=== PATIENT | female | born 1960 | race Caucasian/White ===

== ENCOUNTER → 2019-03-13 16:51 | Outpatient (CLI) | payer BC, SELFPAY ==
--- NOTE | 2019-03-13 16:59 | MM_ITS ---
PROCEDURE: MM DIG SCREENING MAMM BI W/CAD CLINICAL INDICATION: SCREENING There is a history of breast cancer in patient's sister diagnosed after menopause. COMPARISON: MAMMO ADDITIONAL VIEWS RT from 12/02/2015 MAMMO DIAG DIGITAL RT UNILAT from 06/15/2016 Screening-Bilateral Mammography from 12/03/2017 , outside film from [place], [place] TECHNIQUE: Standard CC and MLO images were obtained. R2 CAD reviewed. FINDINGS: There is no suspicious lesion and no suspicious microcalcifications. Moderate fibroglandular densities are seen in the central portions and subareolar regions of both breasts. The findings of a lateral and symmetrical. There is benign-appearing calcification left breast. There is a stable asymmetric density deep within the right breast likely focal glandular elements. It is similar asymmetric density nearly axillary tail left breast which is stable and likely focal glandular tissue. IMPRESSION: Moderate breast density with no suspicious lesions seen BI-RAD Category: 2 Benign Finding(s) FOLLOW-UP: 1YR 1 Year Follow-up (A letter has been sent to the patient regarding results of the study.) Dictated by: Dr. Reggie Falk MD 03/22/2019 16:[address] Reggie Falk MD in [place] 03/22/2019 16:09
== END ==
PROVIDERS: Visit Provider Emergency Medicine
DX: Z12.31 Encounter for screening mammogram for malignant neoplasm of breast (principal)
CPT/HCPCS: 77067

== ENCOUNTER → 2019-11-19 10:53 | Outpatient (CLI) | payer BC, SELFPAY ==
[2019-11-19 10:56] LABS: Adenovirus,PCR Not Detected (NotDetected); Bordetella Pertussis Not Detected (NotDetected); Chlamydophila Pneumoniae, PCR Not Detected (NotDetected); Coronavirus 19, PCR Not Detected (NotDetected); Coronavirus 229E Not Detected (NotDetected); Coronavirus NL63 Not Detected (NotDetected); Coronavirus OC43 Not Detected (NotDetected); Coronovirus HKU1,PCR Not Detected (NotDetected); Human Metapneumovirus Not Detected (NotDetected); Influenza A, PCR Not Detected (NotDetected); Influenza AH1, 2009 Not Detected (NotDetected); Influenza AH1, PCR Not Detected (NotDetected); Influenza AH3,PCR Not Detected (NotDetected); Influenza B, PCR Not Detected (NotDetected); Mycoplasma Pneumoniae, PCR Not Detected (NotDected); Parainfluenza 1, PCR Not Detected (NotDetected); Parainfluenza 2, PCR Not Detected (NotDetected); Parainfluenza 3, PCR Not Detected (NotDetected); Parainfluenza 4, PCR Not Detected (NotDetected); Respiratory Syncytial Virus Not Detected (NotDetected); Rhinovirus/Enterovirus Not Detected (NotDetected)
--- NOTE | 2019-11-19 16:25 | PC.NURSE ---
notified pt of negative COVID 19 results.
== END ==
PROVIDERS: Visit Provider Internal Medicine Gastroenterology
DX: Z01.818 Encounter for other preprocedural examination (principal)
CPT/HCPCS: 87581; 87633; 87798

== ENCOUNTER 2019-11-21 08:24 | Day surgery (SDC) | payer BC, SELFPAY ==
--- NOTE | 2019-11-18 11:08 | SUR.PREOP ---
11/18/19 @ 1725--PHONE CALL MADE TO PATIENT. PATIENT UNDERSTANDS THAT LAB WORK AND COVID TESTING NEEDS TO BE COMPLETED @ 1100 ON 11/19/19. PATIENT UNDERSTANDS IF LAB WORK AND COVID-19 TESTS ARE NOT COMPLETED BY 12PM ON THAT DATE, THE SURGERY SCHEDULED WILL BE CANCELLED AND RESCHEDULED FOR ANOTHER TIME.
[2019-11-18 12:38] VITALS: BMI 30.2
[2019-11-21] VITALS (8 sets, daily range): BP systolic 95–142; BP diastolic 67–104; PULSE 64–95; RESP 18; TEMP 36.2–36.7; O2SAT 92–98
--- NOTE | 2019-11-21 09:56 | HMH.ANESCL ---
[facility] Anesthesia Checklist - Structural Data Admitted From: Home Planned Operative Procedure/s: egd/colonoscopy Consent for Planned Operative Procedure(s) Verified: Yes - Airway Assessment C-Spine Mobility Assessed: Yes TMJ Mobility Assessed: Yes Dentition: Good Dentition - Neurological Assessment Level of Consciousness: Awake, Alert, Appropriate - Anesthesia Plan Anesthesia Risk discussed: Yes Anesthesia Plan: Verified ASA Class: II Anesthesia Type: MAC [facility] History I have reviewed the patient's past medical history: Yes Medical History: Reports:: Cancer (skin cancer) Denies:: Diabetes Mellitus Type 1, Diabetes Mellitus Type 2, Internal Pacemaker, MRSA, Seizures *Have you ever received a pneumonia vaccine?: No *Have you received a flu vaccine this season?: Yes Anesthesia experience/problems:: none Other Surgeries: No: Pacemaker Amputation: No Fractures: No - *Social History Educational Level: Attended College Smoking Status: Never smoker Alcohol Intake: current Alcohol Intake Frequency:: holidays/special occasions only Substance Use Type: denies use *Occupational Status:: employed Housing: apartment Household Members: none *Travel in the last 8 weeks: None Family Hx:: Cancer, Diabetes
--- NOTE | 2019-11-21 10:24 | HMH.PROC ---
[facility] Procedure Note Procedure Note:: Upper Endoscopy Procedure Report: Esophagogastroduodenoscopy with cold biopsies Endoscopost: Bryan Sloan II, MD Referring Physician: Hiro Carballo MD Date of Procedure: November 21, 2019 Equipment: Olympus GIF 180 standard upper endoscope Sedation: MAC sedation Indications: Mrs. Briones is a 59-year-old female with epigastric abdominal pain that has worsened over the last month. She has moderate nausea, bloating and early satiety. She also has had looser bowel movements with some urgency. Over the last couple of weeks she has noted some bright red blood per rectum with some blood clots. She reports loose stools that are occasionally watery. She has some pyrosis. She reports no dysphagia or globus sensation. She reports no melena or weight loss. This is her first upper endoscopy. She does have a niece and nephew with Crohn's disease. Procedure: Prior to the procedure, a history and physical exam was performed, and patient's medications and allergies were reviewed. The risks, benefits and alternatives of the sedation and procedure were discussed with the patient. All questions were answered and informed consent was obtained. The patient was brought to the procedure room. Patient identification and proposed procedure were verified by the physician and the nurse. The patient was placed in a left lateral decubitus position and the scope was passed under direct vision. Throughout the procedure, the patient's blood pressure, pulse, and oxygen saturations were monitored continuously. The upper GI endoscopy was accomplished without difficulty. The patient tolerated the procedure well. Findings: The scope was passed directly into the upper esophagus and advanced to the third portion of the duodenum. The post bulbar duodenum and duodenal bulb were normal with normal mucosa and conniventes. Cold biopsies were taken from the post bulbar duodenum to rule out celiac disease. The scope was withdrawn through a normal duodenal bulb and pylorus into the stomach. There was marked bile reflux with mild to moderate linear reactive gastropathy of the antrum and body of the stomach. The remainder of the antrum, body and fundus of the stomach were grossly normal. Upon retroflexion there was no hiatal hernia. 2 biopsies were taken in the antrum and along the lesser curvature for histology to rule out gastritis and/or H pylori. The scope was then withdrawn into the esophagus. The remainder of the esophageal mucosa was normal. Impression: 1. Bile reflux with mild to moderate linear reactive gastropathy Plan: I will follow-up the biopsies. We will discuss dietary measures and treatment options of her functional dyspepsia. I will proceed with diagnostic colonoscopy.
--- NOTE | 2019-11-21 10:44 | P.PCN_ITS ---
[facility] Procedure Note Procedure Note:: Colonoscopy Procedure Report: Colonoscopy with cold snare polypectomy, cold biopsies and monopolar ablation to destruction of internal hemorrhoids Endoscopist: Bryan Sloan II, MD Referring physician: Hiro Carballo MD Date of Procedure: November 21, 2019 Equipment: Olympus 180 variable stiffness pediatric colonoscope Sedation: MAC sedation Indication: Mrs. Briones is a 59-year-old female with dyspepsia, nausea, bloating and diarrhea. She has had loose stools and diarrhea with urgency. Over the last couple of weeks she also has noted some bright red blood with some blood clots. She reports no weight loss but does get crampy abdominal discomfort. She does state that her niece and nephew have Crohn's disease but she reports no family history of colon cancer. This is her first colonoscopy performed for diagnostic purposes. Procedure: Prior to the procedure, a history and physical exam was performed, and patient's medications and allergies were reviewed. The risks, benefits and alternatives of the sedation and procedure were discussed with the patient. All questions were answered and informed consent was obtained. The patient was brought to the procedure room. Patient identification and proposed procedure were verified by the physician and the nurse. The patient was placed in a left lateral decubitus position and the scope was passed under direct vision. Throughout the procedure, the patient's blood pressure, pulse, and oxygen saturations were monitored continuously. The colonoscopy was accomplished without difficulty. The patient tolerated the procedure well. Findings: On digital rectal examination there was normal rectal tone. There were no external hemorrhoids. The colonoscope was introduced through the anal canal to the rectum and advanced to the cecum. The ileocecal valve and appendiceal orifice were identified. The scope was advanced a short distance into the ileum which appeared grossly normal. The scope was then withdrawn into the colon. There were 3 diminutive polyps in the cecum (2, 3 and 4 mm sizes) and a single polyp in the descending colon (3 mm polyp). All of these polyps were removed via cold snare polypectomy. The remaining cecum, ascending and transverse colon and mucosa were grossly normal. Cold biopsies were taken from the right colon to rule out microscopic colitis. There were scattered diverticuli throughout the descending and sigmoid colon (LEFT colon). The rectum itself was normal. Upon retroflexion within the rectum there were grade 1-2 internal hemorrhoids. 3 of the columns of hemorrhoids were cauterized using monopolar ablation to destruction. The preparation was excellent throughout with [place] Preparation Score of 9. The cecal time was 13 minutes. Impression: 1. Diminutive colonic polyps x4 2. Mild left-sided diverticulosis 3. Grade 1-2 internal hemorrhoids status post monopolar ablation to destruction Plan: I will follow-up the biopsies. I will place the patient on fiber bulk and probiotic therapy. We will also discuss dietary measures to follow. We will discuss additional treatment options. I will follow-up the polyp histology and recommend repeat screening/surveillance colonoscopy again in 3 to 5 years based upon the pathology.
== END 2019-11-21 11:52 | disposition home or self-care (01) ==
PROVIDERS: PCP Family Medicine; Visit Provider Internal Medicine Gastroenterology
PROC: 0DJ08ZZ Inspection of Upper Intestinal Tract, Via Natural or Artificial Opening Endoscopic (ICD-10-PCS; CPT 43235; principal; 2019-11-21 09:30)
DX: R10.13 Epigastric pain (principal); R19.7 Diarrhea, unspecified; K21.9 Gastro-esophageal reflux disease without esophagitis; D12.0 Benign neoplasm of cecum; K64.1 Second degree hemorrhoids; I10 Essential (primary) hypertension; Z79.899 Other long term (current) drug therapy; Z88.1 Allergy status to other antibiotic agents; Z88.2 Allergy status to sulfonamides; K31.9 Disease of stomach and duodenum, unspecified
CPT/HCPCS: 43239; 45385; 45380; 46930

== ENCOUNTER → 2020-03-01 14:35 | Outpatient (POV) | payer BC, SELFPAY | PROVIDERS: Visit Provider Nurse Practitioner Family | DX: Z00.00 Encounter for general adult medical examination without abnormal findings (principal) ==

== ENCOUNTER 2020-03-07 14:44 | Emergency (ER) | payer BC, SELFPAY ==
[2020-03-07 14:53] VITALS: BP 146/89; PULSE 77; RESP 19; TEMP 36.8; O2SAT 98; BMI 31.1
--- NOTE | 2020-03-07 15:12 | HMH.EDUTC ---
[facility] [place] Disposition Clinical Impression: Otitis media Qualifiers: Otitis media type: unspecified Laterality: left Qualified Code(s): H66.92 - Otitis media, unspecified, left ear Disposition: Home, Self-Care Condition on Discharge: Good Instructions: Middle Ear Infections (Alternative Therapy), Middle Ear Infection, Amoxicillin, Fluticasone Nasal Early Branch Additional Instructions: *Monitor Temp, Over the counter Motrin or Tylenol as directed/as needed Tylenol every 4 hours and Motrin every 6 hours (as long as your family doctor has told you that you can take it) for fever or pain. and straight to ER if unable to lower temp less than 101.0 after medication given *Warm salt water gargles may help to soothe the throat *Throat Lozenges *Warm fluids like tea with honey may help to soothe the throat *Sleep elevated *Humidifier/Vaporizer *Flonase 2 sprays in each nostril daily but be aware that it may take 2-3 days before you notice improvement Take medication as prescribed Follow up IMMEDIATELY for new or worsening symptoms or no Noticeable improvement over the next 48-72 hours. 911 for difficulty breathing or swallowing Prescriptions: Amoxicillin [Amoxicillin 500mg Cap] 500 mg PO TID #30 cap Transmission Status: Pending to [id number] Fluticasone Propionate [Flonase 50mcg nasal spray 16gm] 1 - 2 spr NS DAILY #1 bottle Transmission Status: Pending to [id number] Referrals: Hiro Carballo MD [Primary Care Provider] - As needed Time of Disposition: 15:16 Medical Decision Making - Amadeo Inquiry Pt receiving controlled substance: No Amadeo was queried for this patient: No Vital Signs: 03/07/20 14:53 Temperature 98.2 F Temperature Source Oral Pulse Rate [Radial] 77 Respiratory Rate 19 Blood Pressure [Right Arm] 146/89 H Blood Pressure Mean [Right Arm] 108 Blood Pressure Source [Right Arm] Automatic Cuff Blood Pressure Position [Right Arm] Sitting 02 Sat by Pulse Oximetry 98 Oxygen Delivery Method Room Air [facility] [place] HPI - General Stated complaint: L ear pain, dizzy, headache Time Seen by Provider: 03/07/20 15:13 Mode of Arrival: Ambulatory Source of Information: Patient Limitations: No Limitations Description of Symptoms (Recalled from Triage Doc. by RN): left ear pain, headache, dizziness, nausea x 1 week HEENT Symptoms (Recalled from RN notes): Yes Resp Symptoms (Recalled from RN notes): No Skin Symptoms (Recalled from RN notes): No MS Symptoms (Recalled from RN notes): No Functional Status (Recalled from RN notes): wnl - History of Present Illness Provider Complaint: Patient states that she has been having pain in her left ear with pressure like feeling for over a week States that she feels like there is fluid in there and when she moves quickly it makes her feel a little dizzy and makes her nausous States that today the pain was worse so she come in to get it looked at - Related Data Home Medications Medication Instructions Recorded Confirmed Aspirin 81 mg PO DAILY 11/18/19 11/21/19 Citalopram Hydrobromide 20 mg PO DAILY 11/18/19 11/21/19 [Citalopram HBr] Metoprolol Tartrate [Lopressor 25 mg PO DAILY 11/18/19 11/21/19 25mg tablet] Mv-Min/Iron/Folic/Calcium/Vitk 1 each PO DAILY 11/18/19 11/21/19 [Women's Multivitamin Tablet] Omeprazole [Omeprazole 40mg 40 mg PO DAILY 11/18/19 11/21/19 Capsule] hydroCHLOROthiazide [HCTZ 12.5mg 12.5 mg PO DAILY 11/18/19 11/21/19 cap] Previous Rx's Medication Instructions Recorded Amoxicillin [Amoxicillin 500mg 500 mg PO TID #30 cap 03/07/20 Cap] Fluticasone Propionate [Flonase 1 - 2 spr NS DAILY #1 bottle 03/07/20 50mcg nasal spray 16gm] Allergies Allergy/AdvReac Type Severity Reaction Status Date / Time Sulfa (Sulfonamide Allergy Intermediate I-ITCHING Verified 11/18/19 12:21 Antibiotics) [SULFA (SULFONAMIDE ANTIBIOTICS)] levofloxacin [From LEVAQUIN] Allergy Unknown Verified 11/18/19
[2020-03-07 15:25] VITALS: BP 146/89; PULSE 77; RESP 19; TEMP 36.8; O2SAT 98
== END 2020-03-07 15:28 | disposition home or self-care (01) ==
PROVIDERS: Emergency Provider Nurse Practitioner; PCP Family Medicine
DX: H66.92 Otitis media, unspecified, left ear (principal); Z88.2 Allergy status to sulfonamides
CPT/HCPCS: 99201

== ENCOUNTER 2020-08-08 07:13 | Emergency (ER) | payer BC, SELFPAY ==
[2020-08-08 06:59] VITALS: BP 159/104; PULSE 91; RESP 18; TEMP 37.7; O2SAT 94; BMI 34.3
--- NOTE | 2020-08-08 07:09 | XR_ITS ---
PROCEDURE: XR CHEST PORTABLE CLINICAL HISTORY: Cough COMPARISON: No exams were available for comparison FINDINGS: The cardiomediastinal silhouette and pulmonary vascularity are within normal limits. The lungs are clear without infiltrates, suspicious nodules, or pleural effusions. No acute bony abnormalities. IMPRESSION: No acute findings. Dictated by: Thaddeus Chris MD 08/08/2020 07:51 Thaddeus Chris MD in [place] 08/08/2020 07:51
[2020-08-08 07:17] LABS: Adenovirus,PCR Not Detected (NotDetected); Bordetella Pertussis Not Detected (NotDetected); Chlamydophila Pneumoniae, PCR Not Detected (NotDetected); Coronavirus 229E Not Detected (NotDetected); Coronavirus NL63 Not Detected (NotDetected); Coronavirus OC43 Not Detected (NotDetected); Coronovirus HKU1,PCR Not Detected (NotDetected); Human Metapneumovirus Not Detected (NotDetected); Influenza A, PCR Not Detected (NotDetected); Influenza AH1, 2009 Not Detected (NotDetected); Influenza AH1, PCR Not Detected (NotDetected); Influenza AH3,PCR Not Detected (NotDetected); Influenza B, PCR Not Detected (NotDetected); Mycoplasma Pneumoniae, PCR Not Detected (NotDetected); Parainfluenza 1, PCR Not Detected (NotDetected); Parainfluenza 2, PCR Not Detected (NotDetected); Parainfluenza 3, PCR Not Detected (NotDetected); Parainfluenza 4, PCR Not Detected (NotDetected); Respiratory Syncytial Virus Not Detected (NotDetected); Rhinovirus/Enterovirus Not Detected (NotDetected)
[2020-08-08 07:20] VITALS: BP 132/96; PULSE 89; O2SAT 92
--- NOTE | 2020-08-08 07:23 | HMH.EDSOB ---
ED Disposition Clinical Impression: Pneumonia due to COVID-19 virus Disposition: Home, Self-Care Condition on Discharge: Good Instructions: DI for COVID-19 (Suspected or Confirmed ) Additional Instructions: fluids and call pcp in am Referrals: Hiro Carballo MD [Primary Care Provider] - - Critical Care Critical Care Time: No Attestation: On 08/08/20, the high probability of a clinically significant, sudden or life threatening deterioration of the following system(s) required my full and direct attention, intervention and personal management. The time I documented below is in addition to time spent performing reported procedures but includes the following listed in this critical care notation. Medical Decision Making - Medical Records Medical records reviewed: Yes: I reviewed the patient's medical records. - Amadeo Inquiry Pt receiving controlled substance: No Vital Signs: 08/08/20 06:59 08/08/20 07:20 08/08/20 07:45 Temperature 99.8 F H Temperature Source Oral Pulse Rate [Left Radial] 91 H 89 83 Respiratory Rate 18 Blood Pressure [Right Arm] 159/104 H 132/96 H 125/80 Blood Pressure Mean [Right Arm] 122 108 95 Blood Pressure Source [Right Arm] Automatic Cuff Automatic Cuff Automatic Cuff Blood Pressure Position [Right Arm] Supine Sitting Sitting 02 Sat by Pulse Oximetry 94 L 92 L 93 L Oxygen Delivery Method Room Air Room Air Room Air 08/08/20 09:12 08/08/20 09:30 Temperature Temperature Source Pulse Rate [Left Radial] 79 73 Respiratory Rate Blood Pressure [Right Arm] 121/81 123/82 Blood Pressure Mean [Right Arm] 94 95 Blood Pressure Source [Right Arm] Automatic Cuff Automatic Cuff Blood Pressure Position [Right Arm] Sitting Sitting 02 Sat by Pulse Oximetry 93 L 92 L Oxygen Delivery Method Room Air Room Air - Lab Data Lab results reviewed: Yes: I reviewed the patient's lab results. Lab Results 08/08/20 07:00: Chlamy pneumoniae PCR Not detected, Adenovirus (PCR) Not detected, B. pertussis DNA (PCR) Not detected, Coronavirus OC43 (PCR) Not detected, Coronavirus HKU1 (PCR) Not detected, Coronavirus 229E (PCR) Not detected, SARS-CoV-2 (PCR) Detected A, Coronavirus NL63 (PCR) Not detected, Human Metapneumovir PCR Not detected, Influenza A (H1) PCR Not detected, Influ A (H1N1/09) PCR Not detected, Influenza A (H3) PCR Not detected, Influenza Type A (PCR) Not detected, Influenza Type B (PCR) Not detected, M. pneumoniae (PCR) Not detected, Parainfluenza 1 (PCR) Not detected, Parainfluenza 2 (PCR) Not detected, Parainfluenza 3 (PCR) Not detected, Parainfluenza 4 (PCR) Not detected, RSV (PCR) Not detected, Entero/Rhino (PCR) Not detected 08/08/20 07:00: WBC 7.2, RBC 5.19, Hgb 16.6 H, Hct 49.4 H, MCV 95.2, MCH 32.0 H, MCHC 33.6, RDW 13.4, Plt Count 219, MPV 7.0 L, Neut % (Auto) 78.1, Lymph % (Auto) 15.1, Crenshaw % (Auto) 4.3, Eos % (Auto) 1.7, Baso % (Auto) 0.7, Neut # (Auto) 5.6, Lymph # (Auto) 1.1, Crenshaw # (Auto) 0.3, Eos # (Auto) 0.1, Baso # (Auto) 0.1, ESR 19 08/08/20 07:00: Sodium 136, Potassium 3.6, Chloride 99, Carbon Dioxide 28, Anion Gap 12.6, BUN 19 H, Creatinine 1.00, Estimated Creat Clear 84, Estimated GFR 56 L, Est GFR ( Amer) 68, Glucose 112 H, Calcium 9.4, Total Bilirubin 0.6, AST 71 H, ALT 75, Alkaline Phosphatase 70, C-Reactive Protein 12.3 H, Total Protein 8.4 H, Albumin 4.7, Globulin 3.7 H, Albumin/Globulin Ratio 1.3, Procalcitonin 0.163 08/08/20 07:00: Lactate 1.3 Result diagrams: 08/08/20 07:00 08/08/20 07:00 Orders (Tests/Meds): ED MEDICATIONS Generic Name Dose Route Start Last Admin Trade Name Freq PRN Reason Stop Dose Admin Sodium Chloride 1,000 mls @ 999 mls/hr 08/08/20 07:15 08/08/20 07:19 Sod Chlor 0.9% 1000ml Bag IV 08/08/20 08:15 999 mls/hr .Q1H1M AYLIN Administration Discontinued Medications Generic Name Dose Route Start Last Admin Trade Name Freq PRN Reason Stop Dose Admin Acetaminophen 650 mg 08/08/20 07:27 08/08/20 07:49 Acetaminophe
--- NOTE | 2020-08-08 07:26 | PC.NURSE ---
Rad at bedside
[2020-08-08 07:34] LABS: Basophils # 0.1 K/mm3 (0-0.2); Basophils % 0.7 % (0.1-2.0); Eosinophils # 0.1 K/mm3 (0.0-0.4); Eosinophils % 1.7 % (0.1-12.0); Hematocrit 49.4 % (37.0-47.0); Hemoglobin 16.6 g/dL (12.2-16.2); Lymphocytes # 1.1 K/mm3 (0.7-4.5); Lymphocytes % 15.1 % (10-50); Mean Corpuscular HGB Conc 33.6 g/dL (31.8-35.4); Mean Corpuscular Volume 95.2 fl (81-99); Monocytes # 0.3 K/mm3 (0.1-1.0); Monocytes % 4.3 % (1.7-9.3); Neutrophils # 5.6 K/mm3 (1.8-7.8); Neutrophils % 78.1 % (37.0-80.0); Platelet Count 219 K/mm3 (142-424); Red Blood Count 5.19 M/mm3 (4.20-5.40); Red Cell Distribution Width 13.4 % (11.5-17.5); White Blood Count 7.2 K/mm3 (4.8-10.8)
[2020-08-08 07:38] LABS: Alanine Aminotransferase 75 U/L (12-78); Albumin Level 4.7 g/dl (3.5-5.0); Albumin/Globulin Ratio 1.3 (1.1-1.8); Alkaline Phosphatase 70 U/L (38-126); Anion Gap 12.6 mEq/L (5-15); Aspartate Amino Transferase 71 U/L (14-36); Bilirubin,Total 0.6 mg/dl (0.2-1.3); Blood Urea Nitrogen 19 mg/dl (7-17); Calcium 9.4 mg/dl (8.4-10.2); Carbon Dioxide 28 mmol/L (22.0-30.0); Chloride 99 mmol/L (98-107); Creatinine Clearance Estimated 84 mL/min (50-200); Estimated Glomerular Filt Rate 56 ml/min (>60); GFR (African American) 68 ML/MIN (>60); Globulin 3.7 g/dL (1.3-3.2); Glucose 112 mg/dl (74-100); Potassium 3.6 mmoL/L (3.5-5.1); Sodium 136 mmol/L (136-145); Total Protein,Serum 8.4 g/dl (6.3-8.2)
[2020-08-08 07:39] LABS: Lactic Acid 1.3 mmol/L (0.7-2.1)
[2020-08-08 07:44] LABS: C-Reactive Protein 12.3 mg/L (0-4)
--- NOTE | 2020-08-08 07:44 | CT_ITS ---
PROCEDURE: CT ANGIO CHEST CLINCIAL INDICATION: SOA Shortness of air with Covid19 19 exposure COMPARISON: No exams were available for comparison TECHNIQUE: IV Contrast: 70ML Isovue 370 Axial images obtained with sagittal and coronal reformats. All CT scans at the facility use one or more dose reduction, viz: automated exposure control, ma/kV adjustment per patient size (including targeted exams where dose is matched to indication, i.e. head), or iterative reconstruction technique. FINDINGS: HEART AND MEDIASTINAL STRUCTURES: No evidence of pulmonary embolus, aortic aneurysm, or aortic dissection. There are few small mediastinal nodes. LUNGS AND PLEURAL SPACES: There are mild atelectatic changes in the right lung base. There is a small area of ground-glass infiltrate in the right lower lobe posteriorly and medially. No effusions. No cavitation BONY STRUCTURES: Mild degenerative changes thoracic spine UPPER ABDOMEN: Fatty liver. 6 mm hypodensity is present in the pancreatic head incompletely imaged. ADDITIONAL FINDINGS: There are small axillary nodes nonspecific. IMPRESSION: 1. No evidence of pulmonary embolus, aortic aneurysm, or aortic dissection. 2. There are a 2 small areas of ground-glass infiltrate in the right lower lobe nonspecific but could be seen with early Covid19 pneumonia 3. Nonspecific hypodensity of the pancreas incompletely imaged Dictated by: Thaddeus Chris MD 08/08/2020 08:43 Thaddeus Chris MD in [place] 08/08/2020 08:43
[2020-08-08 07:45] VITALS: BP 125/80; PULSE 83; O2SAT 93
--- NOTE | 2020-08-08 07:45 | PC.NURSE ---
rad notified of CT order
[2020-08-08 07:57] LABS: Procalcitonin 0.163 ng/mL (0.0-2.0)
--- NOTE | 2020-08-08 08:06 | PC.NURSE ---
Pt is with rad, v/s delayed.
[2020-08-08 08:07] LABS: Erythrocyte Sedimentation Rate 19 mm/hr (0-30)
[2020-08-08 08:31] LABS: Coronavirus 19, PCR Detected (NotDetected)
--- NOTE | 2020-08-08 08:31 | PC.NURSE ---
Covid results called to Elsie Han RN
[2020-08-08 09:12] VITALS: BP 121/81; PULSE 79; O2SAT 93
[2020-08-08 09:30] VITALS: BP 123/82; PULSE 73; O2SAT 92
[2020-08-08 10:20] VITALS: BP 123/82; PULSE 73; RESP 18; TEMP 37.7; O2SAT 92
--- NOTE | 2020-08-08 11:41 | PC.NURSE ---
Pt requested to give her keys to her brother. Cantrall given to brother at registration window.
== END 2020-08-08 10:20 | disposition home or self-care (01) ==
PROVIDERS: Emergency Provider Emergency Medicine; PCP Family Medicine
DX: U07.1 COVID-19 (principal); J12.82 Pneumonia due to coronavirus disease 2019; Z01.84 Encounter for antibody response examination; Z88.2 Allergy status to sulfonamides
CPT/HCPCS: 71045; 71275; 80053; 83605; 84145; 85025; 85651; 86140; 87040; 87581; 87633; 87798; 96365; 96375; 99284; J2405; Q9967; U0003

== ENCOUNTER 2020-08-10 10:44 | Outpatient (CLI) | payer BC, SELFPAY | END 2020-08-10 14:32 | disposition home or self-care (01) | PROVIDERS: PCP Family Medicine; Visit Provider Family Medicine | DX: U07.1 COVID-19 (principal) | CPT/HCPCS: 96365 ==

== ENCOUNTER → 2020-08-24 09:50 | Outpatient (CLI) | payer BC, SELFPAY ==
--- NOTE | 2020-08-24 | CA_ITS ---
APPROVED REPORT Bilateral Lower Extremity Venous Study for [employer]: CN Indications Left calf pain without swelling, s/p covid-19 Findings Color flow duplex of the bilateral lower extremity demonstrates no evidence of Deep vein thrombosis nor superficial venous thrombophlebitis. Conclusion Color flow duplex of the bilateral lower extremity demonstrates no evidence of Deep vein thrombosis nor superficial venous thrombophlebitis. Electronically signed by : Thaddeus Chris MD 08/24/2020 14:56:34
[2020-08-24 11:49] LABS: Basophils # 0.1 K/mm3 (0-0.2); Basophils % 0.8 % (0.1-2.0); Eosinophils # 0.3 K/mm3 (0.0-0.4); Eosinophils % 3.3 % (0.1-12.0); Hematocrit 45.7 % (37.0-47.0); Hemoglobin 15.1 g/dL (12.2-16.2); Lymphocytes # 2.2 K/mm3 (0.7-4.5); Lymphocytes % 24.8 % (10-50); Mean Corpuscular HGB Conc 33.1 g/dL (31.8-35.4); Mean Corpuscular Hemoglobin 31.9 pg (27.0-31.2); Mean Corpuscular Volume 96.4 fl (81-99); Mean Platelet Volume 7.4 fl (7.4-10.4); Monocytes # 0.3 K/mm3 (0.1-1.0); Monocytes % 3.6 % (1.7-9.3); Neutrophils # 5.8 K/mm3 (1.8-7.8); Neutrophils % 67.5 % (37.0-80.0); Platelet Count 382 K/mm3 (142-424); Red Blood Count 4.74 M/mm3 (4.20-5.40); Red Cell Distribution Width 13.1 % (11.5-17.5); White Blood Count 8.6 K/mm3 (4.8-10.8)
[2020-08-24 11:53] LABS: Hemoglobin A1C 5.8 % (4.0-6.0)
--- NOTE | 2020-08-24 11:58 | CT_ITS ---
PROCEDURE: CT ANGIO CHEST CLINCIAL INDICATION: PNEUMONIA DUE TO CORONAVIRUS DISEASE 2019 COMPARISON: CT CT ANGIO CHEST from 08/08/2020 TECHNIQUE: IV Contrast: 70ML Isovue 370 Axial images obtained with sagittal and coronal reformats. All CT scans at the facility use one or more dose reduction, viz: automated exposure control, ma/kV adjustment per patient size (including targeted exams where dose is matched to indication, i.e. head), or iterative reconstruction technique. FINDINGS: No mediastinal or hilar mass or adenopathy. No evidence of aortic aneurysm or dissection. No evidence of pulmonary embolus. There has been interval development of numerous peripheral nodular opacities in both upper and lower lobes. These are without cavitation and are in both upper and lower lobes. These are more prominent on the right compared to the left. There is a new area of consolidation/volume loss in the right lower lobe medially and posteriorly. No effusions are evident. There are degenerative changes in the thoracic spine. IMPRESSION: 1. No evidence of pulmonary embolus. 2. Interval development of numerous small mostly peripheral parenchymal nodular opacities which are likely infectious and/or inflammatory. This is not a typical finding for Covid19 pneumonia. Septic emboli is a consideration. Atypical manifestation of Covid19 is also consideration. Continued follow-up suggested. Dictated by: Thaddeus Chris MD 08/24/2020 13:31 Thaddeus Chris MD in [facility] 08/24/2020 13:31
[2020-08-24 12:19] LABS: Chloride 107 mmol/L (98-107); Potassium 4.6 mmoL/L (3.5-5.1); Sodium 140 mmol/L (136-145)
[2020-08-24 12:22] LABS: Alanine Aminotransferase 45 U/L (12-78); Albumin Level 4.4 g/dl (3.5-5.0); Albumin/Globulin Ratio 1.3 (1.1-1.8); Alkaline Phosphatase 71 U/L (38-126); Anion Gap 11.6 mEq/L (5-15); Aspartate Amino Transferase 42 U/L (14-36); Bilirubin,Total 0.6 mg/dl (0.2-1.3); Blood Urea Nitrogen 24 mg/dl (7-17); Calcium 10.2 mg/dl (8.4-10.2); Carbon Dioxide 26 mmol/L (22.0-30.0); Estimated Glomerular Filt Rate 73 ml/min (>60); GFR (African American) 88 ML/MIN (>60); Globulin 3.3 g/dL (1.3-3.2); Glucose 94 mg/dl (74-100); Total Protein,Serum 7.7 g/dl (6.3-8.2)
== END ==
PROVIDERS: PCP Internal Medicine Adolescent Medicine; Visit Provider Internal Medicine Adolescent Medicine
DX: M79.662 Pain in left lower leg (principal); R06.02 Shortness of breath; J12.82 Pneumonia due to coronavirus disease 2019
CPT/HCPCS: 36415; 71275; 80053; 83036; 85025; 93970; Q9967

== ENCOUNTER → 2021-04-04 17:01 | Outpatient (CLI) | payer BC, SELFPAY ==
[2021-04-04 17:32] LABS: Chloride 104 mmol/L (98-107)
[2021-04-04 17:33] LABS: Potassium 3.6 mmoL/L (3.5-5.1); Sodium 139 mmol/L (136-145)
[2021-04-04 17:35] LABS: Alanine Aminotransferase 35 U/L (12-78); Aspartate Amino Transferase 49 U/L (14-36); Blood Urea Nitrogen 28 mg/dl (7-17); Estimated Glomerular Filt Rate 73 ml/min (>60); GFR (African American) 88 ML/MIN (>60)
[2021-04-04 17:36] LABS: Albumin Level 4.5 g/dl (3.5-5.0); Albumin/Globulin Ratio 1.4 (1.1-1.8); Alkaline Phosphatase 71 U/L (38-126); Anion Gap 13.6 mEq/L (5-15); Bilirubin,Total 0.4 mg/dl (0.2-1.3); Calcium 9.6 mg/dl (8.4-10.2); Carbon Dioxide 25 mmol/L (22.0-30.0); Globulin 3.3 g/dL (1.3-3.2); Glucose 113 mg/dl (74-100); Total Protein,Serum 7.8 g/dl (6.3-8.2)
[2021-04-04 17:40] LABS: Basophils # 0.1 K/mm3 (0-0.2); Basophils % 1.2 % (0.1-2.0); Eosinophils # 0.3 K/mm3 (0.0-0.4); Eosinophils % 3.3 % (0.1-12.0); Hematocrit 46.4 % (37.0-47.0); Hemoglobin 15.4 g/dL (12.2-16.2); Lymphocytes # 2.5 K/mm3 (0.7-4.5); Lymphocytes % 27.3 % (10-50); Mean Corpuscular HGB Conc 33.3 g/dL (31.8-35.4); Mean Corpuscular Hemoglobin 32.1 pg (27.0-31.2); Mean Corpuscular Volume 96.4 fl (81-99); Mean Platelet Volume 7.9 fl (7.4-10.4); Monocytes # 0.4 K/mm3 (0.1-1.0); Monocytes % 3.8 % (1.7-9.3); Neutrophils # 5.9 K/mm3 (1.8-7.8); Neutrophils % 64.3 % (37.0-80.0); Platelet Count 278 K/mm3 (142-424); Red Blood Count 4.81 M/mm3 (4.20-5.40); Red Cell Distribution Width 13.2 % (11.5-17.5); White Blood Count 9.2 K/mm3 (4.8-10.8)
== END ==
PROVIDERS: Visit Provider Internal Medicine Adolescent Medicine
DX: I10 Essential (primary) hypertension (principal)
CPT/HCPCS: 36415; 80053; 85025

== ENCOUNTER → 2021-04-05 17:15 | Outpatient (CLI) | payer BC, SELFPAY ==
[2021-04-05 19:23] LABS: Iron 71 ug/dL (37-170)
[2021-04-05 19:32] LABS: Total Iron Binding Capacity 291 ug/dL (265-497)
[2021-04-05 20:00] LABS: Ferritin 79.5 ng/ml (11.1-264)
[2021-04-07 08:15] LABS: Transferrin 257 mg/dL (192-364)
== END ==
PROVIDERS: Visit Provider Internal Medicine Adolescent Medicine
DX: Z83.49 Family history of other endocrine, nutritional and metabolic diseases (principal)
CPT/HCPCS: 36415; 82728; 83540; 83550; 84466

== ENCOUNTER 2021-08-14 14:14 | Emergency (ER) | payer BC, SELFPAY ==
[2021-08-14] VITALS (10 sets, daily range): BP systolic 122–169; BP diastolic 90–118; PULSE 56–68; RESP 13–23; TEMP 36.8–37.1; O2SAT 90–96; BMI 30.2
--- NOTE | 2021-08-14 14:07 | ECG_ITS ---
APPROVED REPORT Exam: Resting ECG HR:64 bpm ECG Measurements Heart Rate 64 AXES NC 146 P 51 QRSd 86 QRS 9 QT 431 T 43 QTc 440 Conclusion SINUS RHYTHM MODERATE VOLTAGE CRITERIA FOR LVH, CONSIDER NORMAL VARIANT [MEETS CRITERIA IN ONE OF: R(aVL), S(V1), R(V5), R(V5/V6)+S(V1)] POSSIBLE ANTERIOR MYOCARDIAL INFARCTION , PROBABLY OLD [30 ms Q WAVE IN V3/V4, OR R < 0.2 mV IN V4] BORDERLINE ECG UNCONFIRMED REPORT Electronically signed by : Yaron Burris MD 08/15/2021 17:28:01
--- NOTE | 2021-08-14 14:27 | XR_ITS ---
PROCEDURE INFORMATION: Exam: XR Chest Exam date and time: 08/14/2021 2:27 PM Age: 61 years old Clinical indication: Pain; Chest pressure; Additional info: Chest pressure, dizziness, nausea TECHNIQUE: Imaging protocol: XR of the chest. Views: 2 views. COMPARISON: CR XR CHEST PORTABLE 08/08/2020 7:40 AM FINDINGS: Lungs: No focal lung consolidation. Pleural spaces: No pleural effusions. Heart/Mediastinum: No significant cardiomegaly. Bones/joints: Unremarkable. IMPRESSION: No acute findings.
[2021-08-14 14:47] LABS: Basophils # 0.1 K/mm3 (0-0.2); Basophils % 1.5 % (0.1-2.0); Chloride 101 mmol/L (98-107); Eosinophils # 0.3 K/mm3 (0.0-0.4); Eosinophils % 3.7 % (0.1-12.0); Hematocrit 48.8 % (37.0-47.0); Hemoglobin 15.9 g/dL (12.2-16.2); Lymphocytes # 1.7 K/mm3 (0.7-4.5); Lymphocytes % 25.9 % (10-50); Mean Corpuscular HGB Conc 32.6 g/dL (31.8-35.4); Mean Corpuscular Hemoglobin 31.5 pg (27.0-31.2); Mean Corpuscular Volume 96.5 fl (81-99); Mean Platelet Volume 7.5 fl (7.4-10.4); Monocytes # 0.3 K/mm3 (0.1-1.0); Monocytes % 4.3 % (1.7-9.3); Neutrophils # 4.3 K/mm3 (1.8-7.8); Neutrophils % 64.5 % (37.0-80.0); Platelet Count 286 K/mm3 (142-424); Red Blood Count 5.06 M/mm3 (4.20-5.40); Sodium 138 mmol/L (136-145); White Blood Count 6.7 K/mm3 (4.8-10.8)
[2021-08-14 14:48] LABS: Potassium 3.3 mmoL/L (3.5-5.1)
[2021-08-14 14:50] LABS: Alanine Aminotransferase 38 U/L (12-78); Albumin Level 4.8 g/dl (3.5-5.0); Albumin/Globulin Ratio 1.5 (1.1-1.8); Alkaline Phosphatase 66 U/L (38-126); Anion Gap 9.3 mEq/L (5-15); Aspartate Amino Transferase 60 U/L (14-36); Bilirubin,Total 0.8 mg/dl (0.2-1.3); Carbon Dioxide 31 mmol/L (22.0-30.0); Globulin 3.3 g/dL (1.3-3.2); Total Protein,Serum 8.1 g/dl (6.3-8.2)
[2021-08-14 14:51] LABS: Calcium 9.8 mg/dl (8.4-10.2); Glucose 107 mg/dl (74-100)
[2021-08-14 15:04] LABS: Troponin I < 0.01 ng/ml (0.00-0.034)
[2021-08-14 15:11] LABS: Blood Urea Nitrogen 21 mg/dl (7-17); Creatinine Clearance Estimated 68 mL/min (50-200); Estimated Glomerular Filt Rate 72 ml/min (>60); GFR (African American) 88 ML/MIN (>60)
[2021-08-14 15:56] LABS: T4 (Thyroxine) 10.8 ug/dl (5.53-11.0)
[2021-08-14 16:09] LABS: Thyroid Stimulating Hormone 1.09 uIU/mL (0.465-4.68)
--- NOTE | 2021-08-14 17:30 | HMH.EDGENADL ---
ED Disposition Clinical Impression: Anxiety Chest pain Qualifiers: Chest pain type: unspecified Qualified Code(s): R07.9 - Chest pain, unspecified Disposition: Home, Self-Care Condition on Discharge: Good Additional Instructions: Please follow-up with your primary care physician regarding possible sleep study. Additionally, you have been given a referral for outpatient neurology. If your condition worsens or any other concerns arise, please return to the emergency department. Otherwise, please follow-up as instructed. Referrals: Robert Silverman MD [Primary Care Provider] - Yaima Estrella MD [Staff Physician] - - Critical Care Critical Care Time: No Attestation: On 08/14/21, the high probability of a clinically significant, sudden or life threatening deterioration of the following system(s) required my full and direct attention, intervention and personal management. The time I documented below is in addition to time spent performing reported procedures but includes the following listed in this critical care notation. Medical Decision Making - Medical Records Medical records reviewed: Yes: I reviewed the patient's medical records. - Amadeo Inquiry Pt receiving controlled substance: No Vital Signs: 08/14/21 14:14 08/14/21 15:00 08/14/21 15:03 Temperature 98.3 F Temperature Source Oral Pulse Rate 68 66 Pulse Rate [Right Radial] 68 Respiratory Rate 18 13 17 Blood Pressure 169/118 H 169/118 H Blood Pressure [Right Arm] 122/99 H Blood Pressure Mean 135 Blood Pressure Mean [Right Arm] 106 Blood Pressure Source [Right Arm] Automatic Cuff Blood Pressure Position [Right Arm] Sitting 02 Sat by Pulse Oximetry 95 96 96 Oxygen Delivery Method Room Air 08/14/21 15:30 08/14/21 16:01 08/14/21 16:28 Temperature Temperature Source Pulse Rate 59 L 64 66 Pulse Rate [Right Radial] Respiratory Rate 13 21 17 Blood Pressure 160/104 H 162/103 H 148/101 H Blood Pressure [Right Arm] Blood Pressure Mean 118 Blood Pressure Mean [Right Arm] Blood Pressure Source [Right Arm] Blood Pressure Position [Right Arm] 02 Sat by Pulse Oximetry 90 L 96 95 Oxygen Delivery Method 08/14/21 16:30 08/14/21 17:00 Temperature Temperature Source Pulse Rate 58 L 56 L Pulse Rate [Right Radial] Respiratory Rate 14 17 Blood Pressure 151/91 H 155/94 H Blood Pressure [Right Arm] Blood Pressure Mean Blood Pressure Mean [Right Arm] Blood Pressure Source [Right Arm] Blood Pressure Position [Right Arm] 02 Sat by Pulse Oximetry 94 L 93 L Oxygen Delivery Method - Lab Data Lab results reviewed: Yes: I reviewed the patient's lab results. Lab Results 08/14/21 14:10: WBC 6.7, RBC 5.06, Hgb 15.9, Hct 48.8 H, MCV 96.5, MCH 31.5 H, MCHC 32.6, RDW 13.0, Plt Count 286, MPV 7.5, Neut % (Auto) 64.5, Lymph % (Auto) 25.9, Bent % (Auto) 4.3, Eos % (Auto) 3.7, Baso % (Auto) 1.5, Neut # (Auto) 4.3, Lymph # (Auto) 1.7, Bent # (Auto) 0.3, Eos # (Auto) 0.3, Baso # (Auto) 0.1 08/14/21 14:10: Sodium 138, Potassium 3.3 L, Chloride 101, Carbon Dioxide 31 H, Anion Gap 9.3, BUN 21 H, Creatinine 0.80, Estimated Creat Clear 68, Estimated GFR 72, Est GFR ( Amer) 88, Glucose 107 H, Calcium 9.8, Total Bilirubin 0.8, AST 60 H, ALT 38, Alkaline Phosphatase 66, Troponin I < 0.01, Total Protein 8.1, Albumin 4.8, Globulin 3.3 H, Albumin/Globulin Ratio 1.5 08/14/21 14:10: TSH 1.09, Thyroxine (T4) 10.8 Result diagrams: 08/14/21 14:10 08/14/21 14:10 Orders (Tests/Meds): ED MEDICATIONS Discontinued Medications Generic Name Dose Route Start Last Admin Trade Name Freq PRN Reason Stop Dose Admin Hydroxyzine Pamoate 50 mg 08/14/21 15:08 08/14/21 17:09 Hydroxyzine Pamoate 25mg Capsule PO 08/14/21 15:09 50 mg ONCE ONE Administration ORDERS Category Date Time Status Troponin I Q3H Lab 08/14/21 17:30 Ordered Troponin I Q3H Lab 08/14/21 20:30 Ordered Medical Decision Na
== END 2021-08-14 17:55 | disposition home or self-care (01) ==
PROVIDERS: Emergency Provider Emergency Medicine; PCP Internal Medicine Adolescent Medicine
DX: F41.9 Anxiety disorder, unspecified (principal); R06.09 Other forms of dyspnea
CPT/HCPCS: 71046; 80053; 84436; 84443; 84484; 85025; 93005; 99282

== ENCOUNTER 2021-11-26 09:52 | Emergency (ER) | payer BC, SELFPAY ==
--- NOTE | 2021-11-26 10:00 | CT_ITS ---
PROCEDURE INFORMATION: Exam: CT Abdomen And Pelvis With Contrast Exam date and time: 11/26/2021 10:56 AM Age: 61 years old Clinical indication: Abdominal pain; Epigastric; Additional info: Epigastri pain TECHNIQUE: Imaging protocol: Computed tomography of the abdomen and pelvis with contrast. Radiation optimization: All CT scans at this facility use at least one of these dose optimization techniques: automated exposure control; mA and/or kV adjustment per patient size (includes targeted exams where dose is matched to clinical indication); or iterative reconstruction. Contrast material: ISOVUE; Contrast volume: 75 ml; Contrast route: IV; COMPARISON: CT ANGIO CHEST 08/24/2020 12:36 PM FINDINGS: Liver: Fatty infiltration of the liver. Gallbladder and bile ducts: Normal. No calcified stones. No ductal dilation. Pancreas: Normal. No ductal dilation. Spleen: Normal. No splenomegaly. Adrenal glands: Normal. No mass. Kidneys and ureters: Severe atrophy of the superior pole right kidney. Left kidney unremarkable. No hydronephrosis. Stomach and bowel: Unremarkable. No obstruction. No mucosal thickening. Appendix: No evidence of appendicitis. Intraperitoneal space: Unremarkable. No free air. No significant fluid collection. Vasculature: Unremarkable. No abdominal aortic aneurysm. Lymph nodes: Unremarkable. No enlarged lymph nodes. Urinary bladder: Unremarkable as visualized. Reproductive: Unremarkable as visualized. Bones/joints: Unremarkable. No acute fracture. Soft tissues: Unremarkable. IMPRESSION: No acute abnormality.
--- NOTE | 2021-11-26 10:01 | HMH.EDGENADL ---
ED Disposition Clinical Impression: Epigastric abdominal pain Disposition: Home, Self-Care Condition on Discharge: Good Instructions: DI for Abdominal Pain-Adult, Diarrhea Additional Instructions: follow up gen surg, return here for worse Prescriptions: Sucralfate [Carafate 1gm Tab] 1 gm PO ACHS #20 tab Transmission Status: Pending to [id number] Pantoprazole Sodium [Protonix 40mg tablet] 40 mg PO DAILY #30 tab Transmission Status: Pending to [id number] Referrals: Robert Silverman MD [Primary Care Provider] - Jimbo Arauz MD [Staff Physician] - - Critical Care Critical Care Time: No Attestation: On 11/26/21, the high probability of a clinically significant, sudden or life threatening deterioration of the following system(s) required my full and direct attention, intervention and personal management. The time I documented below is in addition to time spent performing reported procedures but includes the following listed in this critical care notation. Medical Decision Making - Medical Records Medical records reviewed: Yes: I reviewed the patient's medical records. - Amadeo Inquiry Pt receiving controlled substance: No Vital Signs: 11/26/21 10:28 11/26/21 10:38 Temperature 98.3 F Temperature Source Oral Pulse Rate 66 Pulse Rate [Left Radial] 56 L Respiratory Rate 17 Blood Pressure 161/96 H Blood Pressure [Right Arm] 151/82 H Blood Pressure Mean [Right Arm] 105 02 Sat by Pulse Oximetry 98 98 Oxygen Delivery Method Room Air - Lab Data Lab Results 11/26/21 10:30: WBC 5.8, RBC 4.57, Hgb 15.0, Hct 44.9, MCV 98.3, MCH 32.9 H, MCHC 33.4, RDW 13.2, Plt Count 287, MPV 7.4, Neut % (Auto) 62.1, Lymph % (Auto) 25.8, [place] % (Auto) 5.0, Eos % (Auto) 4.6, Baso % (Auto) 2.5 H, Neut # (Auto) 3.6, Lymph # (Auto) 1.5, [place] # (Auto) 0.3, Eos # (Auto) 0.3, Baso # (Auto) 0.2 11/26/21 10:30: Sodium 140, Potassium 3.7, Chloride 107, Carbon Dioxide 26, Anion Gap 10.7, BUN 17, Creatinine 0.80, Estimated Creat Clear 66, Estimated GFR 72, Est GFR ( Amer) 88, Glucose 102 H, Calcium 9.4, Total Bilirubin 0.8, AST 39 H, ALT 29, Alkaline Phosphatase 57, Troponin I < 0.01, Total Protein 7.0, Albumin 4.1, Globulin 2.9, Albumin/Globulin Ratio 1.4, Lipase 184 Result diagrams: 11/26/21 10:30 11/26/21 10:30 Orders (Tests/Meds): ED MEDICATIONS Discontinued Medications Generic Name Dose Route Start Last Admin Trade Name Freq PRN Reason Stop Dose Admin Acetaminophen 1,000 mg 11/26/21 10:35 11/26/21 10:36 Acetaminophen 500mg Tab PO 11/26/21 10:36 1,000 mg ONCE ONE Administration Belladonna Alkaloids 60 ml 11/26/21 11:58 11/26/21 12:09 Gi Cocktail 60ml Udc PO 11/26/21 11:59 60 ml ONCE ONE Administration Dicyclomine HCl 20 mg 11/26/21 11:58 11/26/21 12:10 Dicyclomine 10mg Capsule PO 11/26/21 11:59 20 mg ONCE ONE Administration Iopamidol 75 ml 11/26/21 11:07 11/26/21 11:08 Iopamidol-370 (76%);100ml Bottle IV 11/26/21 11:08 75 ml ONCE ONE Administration Metoclopramide HCl 10 mg 11/26/21 11:58 11/26/21 12:10 Metoclopramide Hcl 10mg/2ml Vial IVP 11/26/21 11:59 10 mg ONCE ONE Administration Sodium Chloride 10 ml 11/26/21 11:07 11/26/21 11:08 Sodium Chloride 0.9% 10ml Syr (Rad Only) IV 11/26/21 11:08 10 ml ONCE ONE Administration ORDERS Category Date Time Status Urinalysis-Acute [Urinalysis and Microscopic] Stat Lab 11/26/21 10:02 Ordered ECG Request by /Charlotte Stat Y 11/26/21 10:00 Ordered - ECG Data Tracing #1 I reviewed this ECG and interpreted as documented below: ekg by me sinus 57, poss lvh, no st elev Medical Decision Narrative: 1237 reeval, pain resolved with gi cocktail, ok with plan to rx and f/u [facility] General Adult HPI - General Stated complaint: stomach cramps, diarrhea Time Seen by Provider: 11/26/21 10:01 - History of Present Illness HPI narrative: 1 week epigastr
--- NOTE | 2021-11-26 10:08 | ECG_ITS ---
APPROVED REPORT Exam: Resting ECG HR:57 bpm ECG Measurements Heart Rate 57 AXES AZ 147 P 40 QRSd 89 QRS 3 QT 461 T 15 QTc 454 Conclusion SINUS BRADYCARDIA MODERATE VOLTAGE CRITERIA FOR LVH, CONSIDER NORMAL VARIANT [MEETS CRITERIA IN ONE OF: R(aVL), S(V1), R(V5), R(V5/V6)+S(V1)] BORDERLINE ECG UNCONFIRMED REPORT Electronically signed by : Yaron Burris MD 12/01/2021 08:44:32
[2021-11-26 10:27] VITALS: BMI 28.3
[2021-11-26 10:28] VITALS: BP 151/82; PULSE 56; RESP 17; TEMP 36.8; O2SAT 98; BMI 28.3
[2021-11-26 10:38] VITALS: BP 161/96; PULSE 66; O2SAT 98
[2021-11-26 10:44] LABS: Basophils # 0.2 K/mm3 (0-0.2); Basophils % 2.5 % (0.1-2.0); Eosinophils # 0.3 K/mm3 (0.0-0.4); Eosinophils % 4.6 % (0.1-12.0); Hematocrit 44.9 % (37.0-47.0); Lymphocytes # 1.5 K/mm3 (0.7-4.5); Lymphocytes % 25.8 % (10-50); Mean Corpuscular HGB Conc 33.4 g/dL (31.8-35.4); Mean Corpuscular Hemoglobin 32.9 pg (27.0-31.2); Mean Corpuscular Volume 98.3 fl (81-99); Mean Platelet Volume 7.4 fl (7.4-10.4); Monocytes # 0.3 K/mm3 (0.1-1.0); Neutrophils # 3.6 K/mm3 (1.8-7.8); Neutrophils % 62.1 % (37.0-80.0); Platelet Count 287 K/mm3 (142-424); Red Blood Count 4.57 M/mm3 (4.20-5.40); Red Cell Distribution Width 13.2 % (11.5-17.5); White Blood Count 5.8 K/mm3 (4.8-10.8)
[2021-11-26 10:47] LABS: Chloride 107 mmol/L (98-107); Potassium 3.7 mmoL/L (3.5-5.1); Sodium 140 mmol/L (136-145)
[2021-11-26 10:49] LABS: Alanine Aminotransferase 29 U/L (12-78); Aspartate Amino Transferase 39 U/L (14-36); Blood Urea Nitrogen 17 mg/dl (7-17); Creatinine Clearance Estimated 66 mL/min (50-200); Estimated Glomerular Filt Rate 72 ml/min (>60); GFR (African American) 88 ML/MIN (>60)
[2021-11-26 10:50] LABS: Albumin Level 4.1 g/dl (3.5-5.0); Albumin/Globulin Ratio 1.4 (1.1-1.8); Alkaline Phosphatase 57 U/L (38-126); Anion Gap 10.7 mEq/L (5-15); Bilirubin,Total 0.8 mg/dl (0.2-1.3); Calcium 9.4 mg/dl (8.4-10.2); Carbon Dioxide 26 mmol/L (22.0-30.0); Globulin 2.9 g/dL (1.3-3.2); Glucose 102 mg/dl (74-100); Lipase 184 U/L (23-300)
[2021-11-26 11:02] LABS: Troponin I < 0.01 ng/ml (0.00-0.034)
[2021-11-26 12:54] VITALS: BP 155/74; PULSE 61; RESP 17; TEMP 36.8; O2SAT 99
== END 2021-11-26 12:56 | disposition home or self-care (01) ==
PROVIDERS: Emergency Provider Emergency Medicine; PCP Internal Medicine Adolescent Medicine
DX: R10.13 Epigastric pain (principal); R19.7 Diarrhea, unspecified; Z88.2 Allergy status to sulfonamides
CPT/HCPCS: 74177; 80053; 83690; 84484; 85025; 93005; 96374; 96375; 99284; Q9967

== ENCOUNTER 2022-08-23 11:09 | Emergency (ER) | payer BC, SELFPAY ==
[2022-08-23] VITALS (7 sets, daily range): BP systolic 133–162; BP diastolic 87–97; PULSE 64–80; RESP 18–20; TEMP 36.7; O2SAT 93–98; BMI 30.2
--- NOTE | 2022-08-23 11:18 | ECG_ITS ---
APPROVED REPORT Exam: Resting ECG HR:67 bpm ECG Measurements Heart Rate 67 AXES WI 163 P 40 QRSd 88 QRS -6 QT 415 T 2 QTc 431 Conclusion SINUS RHYTHM Left atrial abnormality Poor r wave progression ABNORMAL ECG UNCONFIRMED REPORT Electronically signed by : Yaron Burris MD 08/23/2022 21:25:16
--- NOTE | 2022-08-23 11:22 | CT_ITS ---
FINAL REPORT TECHNIQUE: Axial CT images were performed through the head. Coronal reformatted images were submitted. This study was performed with techniques to keep radiation doses as low as reasonably achievable (ALARA). Individualized dose reduction techniques using automated exposure control or adjustment of mA and/or kV according to the patient's size were employed. CLINICAL HISTORY: headache, elevated BP COMPARISON: None FINDINGS: Mild atrophy. There is mild decreased attenuation in the deep white matter. The ventricles are normal in size. There is no evidence of hemorrhage. There is no mass or edema identified. There is no abnormal extra-axial fluid seen. The paranasal sinuses are well aerated. IMPRESSION: No acute intracranial process. Reviewed, Interpreted and Dictated by Jimbo Muñiz MD Transcribed by Yudith Rachel Authenticated and [facility]
--- NOTE | 2022-08-23 11:27 | HMH.EDGENADL ---
Discharge Plan Disposition Patient Disposition: Home, Self-Care Prescriptions Prescriptions: New meclizine 25 mg tablet 25 mg PO TID PRN (Reason: dizziness) Qty: 15 0RF No Action omeprazole 40 MG capsule,delayed release(DR/EC) 40 mg PO DAILY citalopram 20 MG tablet 20 mg PO DAILY aspirin 81 MG tablet,chewable 81 mg PO DAILY lr-pl-omvw-FA-Ca carb-vit K 1 EACH tablet 1 each PO DAILY hydrochlorothiazide 12.5 MG capsule 12.5 mg PO DAILY metoprolol tartrate 25 MG tablet 25 mg PO DAILY fluconazole 150 MG tablet 150 mg PO ONCE fluticasone propionate 120 SPR/BOT bottle 1 - 2 spr NS DAILY Rx Instructions: each nostril daily hydroxyzine pamoate 25 MG capsule 25 mg PO Q8H PRN (Reason: Anxiety) Qty: 21 0RF sucralfate 1 GM tablet 1 gm PO ACHS Qty: 20 0RF pantoprazole 40 MG tablet,delayed release (DR/EC) 40 mg PO DAILY Qty: 30 0RF Referrals Follow up/Referrals: Diana Amezquita APRN [Primary Care Provider] - See instructions Yaima Estrella MD [Staff Physician] - 3 days Activity Restrictions/Add. Instructions Additional Instructions/Restrictions: Please follow-up with neurology for headaches. Return the emergency department within the next 8 hours should she have worsening headache dizziness or any other concerns Clinical Impressions Clinical Impression: Headache Instructions Patient Instructions: DI for Headache Discharge ED Provider: Magdi Weller General Adult HPI General Chief complaint: Headache Stated complaint: High BP Syncopy Phys referral Time Seen by Provider: 08/23/22 11:10 History of Present Illness HPI narrative: 62-year-old female with history of migraines presents with migraine headache and syncopal episode. She has nausea and no vomiting and persistent throbbing headache after aura similar to her migraines but worse than normal. She also had episode of lightheadedness and has had persistently high high blood pressures despite antihypertension's. She took her medicine today she denies chest pain shortness of air abdominal pain or any other symptoms Related Data Home Medications Medication Instructions Recorded Confirmed aspirin 81 mg chewable tablet 81 mg PO DAILY heart healthy 11/18/19 08/08/20 citalopram 20 mg tablet 20 mg PO DAILY Anxiety 11/18/19 08/08/20 hydrochlorothiazide 12.5 mg capsule 12.5 mg PO DAILY bp 11/18/19 08/08/20 metoprolol tartrate 25 mg tablet 25 mg PO DAILY High blood pressure 11/18/19 08/08/20 toeimkun-nxc-kvuu-FA-Ca carb-vit K 1 each PO DAILY Supplement 11/18/19 08/08/20 18 mg iron-400 mcg-500 mg tablet omeprazole 40 mg capsule,delayed 40 mg PO DAILY stomach 11/18/19 08/08/20 release fluconazole 150 mg tablet 150 mg PO ONCE Allergy symptoms 08/08/20 08/08/20 fluticasone propionate 50 1 - 2 spr NS DAILY Allergy symptoms 08/08/20 08/08/20 mcg/actuation nasal spray,suspension Previous Rx's Medication Instructions Recorded hydroxyzine pamoate 25 mg capsule 25 mg PO Q8H PRN Anxiety #21 caps 08/14/21 pantoprazole 40 mg tablet,delayed 40 mg PO DAILY #30 tabs 11/26/21 release sucralfate 1 gram tablet 1 gm PO ACHS #20 tabs 11/26/21 meclizine 25 mg tablet 25 mg PO TID PRN dizziness #15 tabs 08/23/22 Allergies Allergy/AdvReac Type Severity Reaction Status Date / Time Sulfa (Sulfonamide Allergy Intermediate I-ITCHING Verified 11/18/19 12:21 Antibiotics) [SULFA (SULFONAMIDE ANTIBIOTICS)] levofloxacin [From LEVAQUIN] Allergy Unknown Verified 11/18/19 12:21 [facility] Disclaimer: The information contained in this section may have been updated after the patient was seen, as this information can be updated by other users. Social History Smoking Status: Never smoker second hand exposure: No alcohol intake: never substance use type: denies use current occupational status: employed Travel in the last 8 weeks: None household members: none housing:
--- NOTE | 2022-08-23 11:46 | PC.NURSE ---
triage completed by this RN. Documented on the wrong computer.
[2022-08-23 11:50] LABS: Basophils # 0.1 K/mm3 (0-0.2); Basophils % 1.6 % (0.1-2.0); Eosinophils # 0.2 K/mm3 (0.0-0.4); Eosinophils % 3.2 % (0.1-12.0); Hematocrit 49.4 % (37.0-47.0); Lymphocytes # 1.8 K/mm3 (0.7-4.5); Lymphocytes % 28.4 % (10-50); Mean Corpuscular HGB Conc 32.4 g/dL (31.8-35.4); Mean Corpuscular Hemoglobin 31.3 pg (27.0-31.2); Mean Corpuscular Volume 96.5 fl (81-99); Mean Platelet Volume 7.8 fl (7.4-10.4); Monocytes # 0.3 K/mm3 (0.1-1.0); Monocytes % 4.6 % (1.7-9.3); Neutrophils % 62.3 % (37.0-80.0); Platelet Count 311 K/mm3 (142-424); Red Blood Count 5.13 M/mm3 (4.20-5.40); Red Cell Distribution Width 13.7 % (11.5-17.5); White Blood Count 6.5 K/mm3 (4.8-10.8)
[2022-08-23 11:54] LABS: Alanine Aminotransferase 34 U/L (12-78); Albumin Level 4.8 g/dl (3.5-5.0); Albumin/Globulin Ratio 1.5 (1.1-1.8); Alkaline Phosphatase 66 U/L (38-126); Anion Gap 11.5 mEq/L (5-15); Aspartate Amino Transferase 38 U/L (14-36); Bilirubin,Total 0.7 mg/dl (0.2-1.3); Blood Urea Nitrogen 28 mg/dl (7-17); Calcium 9.5 mg/dl (8.4-10.2); Carbon Dioxide 27 mmol/L (22.0-30.0); Chloride 106 mmol/L (98-107); Creatinine Clearance Estimated 67 mL/min (50-200); Estimated Glomerular Filt Rate 72 ml/min (>60); GFR (African American) 87 ML/MIN (>60); Globulin 3.2 g/dL (1.3-3.2); Glucose 102 mg/dl (74-100); Potassium 3.5 mmoL/L (3.5-5.1); Sodium 141 mmol/L (136-145)
[2022-08-23 12:06] LABS: Troponin I < 0.01 ng/ml (0.00-0.034)
--- NOTE | 2022-08-23 12:41 | PC.NURSE ---
contacted rad to check on status of CT report, states sending down preliminary report
--- NOTE | 2022-08-23 13:01 | CT_ITS ---
FINAL REPORT TECHNIQUE: Thin section axial CT with IV contrast supplemented with multiplanar reconstruction under CT angiogram protocol. This study was performed with techniques to keep radiation doses as low as reasonably achievable (ALARA). Individualized dose reduction techniques using automated exposure control or adjustment of mA and/or kV according to the patient's size were employed. NASCET criteria was utilized during interpretation. CLINICAL HISTORY: dizziness FINDINGS: Aortic arch: Arch shows no significant narrowing. Great vessel origins are widely patent. Right carotid: No significant stenosis is seen of the cervical common or internal carotid artery. Left carotid: No significant stenosis is seen of the cervical common or internal carotid artery. Vertebral: Vertebral arteries are codominant. No significant stenosis is present. Incidental note is made of moderately advanced changes of degenerative disc disease at C4-5, C5-6 and C6-7 with significant posterior osteophyte eccentric to the left at C6-7. IMPRESSION: No evidence of significant carotid stenosis. Reviewed, Interpreted and Dictated by Jimbo Muñiz MD Transcribed by Carmela Loco Authenticated and [facility]
--- NOTE | 2022-08-23 13:01 | CT_ITS ---
FINAL REPORT CLINICAL HISTORY: dizziness FINDINGS: Thin-section axial CT with IV contrast supplemented with multi planar reconstruction under CT angiogram protocol was performed of the head. This study was performed technique to keep radiation doses as low as reasonably achievable, (ALARA). NASCET criteria was utilized during interpretation. CTA head: No aneurysm is seen. Major intracranial vessels are patent without significant stenosis. IMPRESSION: No evidence of significant stenosis, aneurysm or major branch occlusion. Reviewed, Interpreted and Dictated by Jimbo Muñiz MD Transcribed by Carmela Loco Authenticated and [facility]
[2022-08-23 15:47] LABS: Troponin I < 0.01 ng/ml (0.00-0.034)
== END 2022-08-23 15:10 | disposition home or self-care (01) ==
PROVIDERS: Emergency Provider Emergency Medicine; PCP Nurse Practitioner Family
DX: R51.9 Headache, unspecified (principal); R55 Syncope and collapse; R11.0 Nausea
CPT/HCPCS: 70450; 70496; 70498; 80053; 84484; 85025; 93005; 96361; 96374; 96375; 99285; Q9967

== ENCOUNTER 2022-09-10 09:02 | Emergency (ER) | payer BC, SELFPAY ==
[2022-09-10 09:20] VITALS: BP 152/94; PULSE 76; RESP 20; TEMP 37.1; O2SAT 96; BMI 29.2
--- NOTE | 2022-09-10 09:54 | EXP.UTC ---
Discharge Plan Disposition Patient Disposition: Home, Self-Care Condition: Good Prescriptions Prescriptions: New amoxicillin 500 mg capsule 500 mg PO TID 10 Days Qty: 30 0RF xhenlrar-fgqnfccre-VC 3.5-10,000-1 mg/mL-unit/mL-% drops,suspension 4 drp otic (ear) Q8H 7 Days Qty: 10 0RF Rx Instructions: left ear No Action aspirin 81 MG tablet,chewable 81 mg PO DAILY qb-td-tvvt-FA-Ca carb-vit K 1 EACH tablet 1 each PO DAILY hydrochlorothiazide 12.5 MG capsule 12.5 mg PO DAILY metoprolol tartrate 25 MG tablet 25 mg PO DAILY pantoprazole 40 MG tablet,delayed release (DR/EC) 40 mg PO DAILY gabapentin 300 mg capsule 300 mg PO DAILY buspirone 10 mg tablet 10 mg PO DAILY Referrals Follow up/Referrals: Diana Amezquita APRN [Primary Care Provider] - See instructions Activity Restrictions/Add. Instructions Additional Instructions/Restrictions: Take oral antibiotics as prescribed Use drops as prescribed Follow up with your Family Doctor if no improement or any worsening of sympotms Straight to ER if any life threatening symptoms Clinical Impressions Clinical Impression: Otitis media Instructions Patient Instructions: Middle Ear Infection, DI for Otitis Externa Discharge ED Provider: Felipa Corcoran [facility] General Stated complaint: ear pain Mode of Arrival: Ambulatory Source of Information: Patient Limitations: No Limitations Time Seen by Provider: 09/10/22 09:55 Description of Symptoms (Recalled from Triage Doc. by RN): left ear ache HEENT Symptoms (Recalled from RN notes): Yes Resp Symptoms (Recalled from RN notes): No Skin Symptoms (Recalled from RN notes): No MS Symptoms (Recalled from RN notes): No Functional Status (Recalled from RN notes): n/a History of Present Illness Provider Complaint: Patient states that she has been having pain in her left ear for a couple weeks States that for the last couple of days she feels like it has moved to the outer ear too States that she is starting to swell so today when she was still having pain she came Related Data Home Medications Medication Instructions Recorded Confirmed aspirin 81 mg chewable tablet 81 mg PO DAILY heart healthy 11/18/19 09/10/22 hydrochlorothiazide 12.5 mg capsule 12.5 mg PO DAILY bp 11/18/19 09/10/22 metoprolol tartrate 25 mg tablet 25 mg PO DAILY High blood pressure 11/18/19 09/10/22 llzfgtbd-rwo-qhzq-FA-Ca carb-vit K 1 each PO DAILY Supplement 11/18/19 09/10/22 18 mg iron-400 mcg-500 mg tablet buspirone 10 mg tablet 10 mg PO DAILY . 09/10/22 09/10/22 gabapentin 300 mg capsule 300 mg PO DAILY . 09/10/22 09/10/22 pantoprazole 40 mg tablet,delayed 40 mg PO DAILY GERD 09/10/22 09/10/22 release Previous Rx's Medication Instructions Recorded amoxicillin 500 mg capsule 500 mg PO TID 10 days #30 caps 09/10/22 okbcqzuo-thvmsblmx-fpbqbcmfy 3.5 4 drp otic (ear) Q8H 7 days #10 mL 09/10/22 mg-10,000 unit/mL-1 % ear drops,susp Allergies Allergy/AdvReac Type Severity Reaction Status Date / Time Sulfa (Sulfonamide Allergy Intermediate I-ITCHING Verified 09/10/22 09:27 Antibiotics) [SULFA (SULFONAMIDE ANTIBIOTICS)] levofloxacin [From LEVAQUIN] Allergy Unknown Verified 09/10/22 09:27 Worker's Comp Is this a Worker's Comp case?: No [facility] Disclaimer: The information contained in this section may have been updated after the patient was seen, as this information can be updated by other users. Social History Smoking Status: Never smoker second hand exposure: No alcohol intake: never substance use type: denies use current occupational status: employed Travel in the last 8 weeks: None household members: none housing: house current occupation: [employer] current occupational exposures/hazards: No caffeine: Yes ROS Obtained: Yes All systems reviewed & no additional complai
[2022-09-10 10:25] VITALS: BP 152/94; PULSE 76; RESP 20; TEMP 37.1; O2SAT 96
== END 2022-09-10 10:25 | disposition home or self-care (01) ==
PROVIDERS: Emergency Provider Nurse Practitioner; PCP Nurse Practitioner Family
DX: H66.90 Otitis media, unspecified, unspecified ear (principal)
CPT/HCPCS: 99212; 99213; G0463

== ENCOUNTER → 2022-09-14 06:40 | Outpatient (CLI) | payer BC, SELFPAY ==
[2022-09-14 16:55] LABS: Basophils # 0.1 K/mm3 (0-0.2); Basophils % 0.9 % (0.1-2.0); Eosinophils # 0.3 K/mm3 (0.0-0.4); Eosinophils % 3.7 % (0.1-12.0); Hemoglobin 15.9 g/dL (12.2-16.2); Lymphocytes # 1.7 K/mm3 (0.7-4.5); Lymphocytes % 21.9 % (10-50); Mean Corpuscular Hemoglobin 32.4 pg (27.0-31.2); Mean Corpuscular Volume 98.1 fl (81-99); Mean Platelet Volume 8.3 fl (7.4-10.4); Monocytes # 0.4 K/mm3 (0.1-1.0); Monocytes % 4.6 % (1.7-9.3); Neutrophils # 5.4 K/mm3 (1.8-7.8); Neutrophils % 68.9 % (37.0-80.0); Platelet Count 318 K/mm3 (142-424); Red Cell Distribution Width 13.7 % (11.5-17.5); White Blood Count 7.9 K/mm3 (4.8-10.8)
[2022-09-14 16:58] LABS: Alanine Aminotransferase 43 U/L (12-78); Albumin Level 4.7 g/dl (3.5-5.0); Albumin/Globulin Ratio 1.5 (1.1-1.8); Alkaline Phosphatase 73 U/L (38-126); Anion Gap 10.2 mEq/L (5-15); Aspartate Amino Transferase 45 U/L (14-36); Bilirubin,Total 0.9 mg/dl (0.2-1.3); Blood Urea Nitrogen 29 mg/dl (7-17); Calcium 9.5 mg/dl (8.4-10.2); Carbon Dioxide 28 mmol/L (22.0-30.0); Chloride 105 mmol/L (98-107); Chol/HDL Ratio 3.5 (1-3.5); Cholesterol 258 mg/dl (140-200); Estimated Glomerular Filt Rate 72 ml/min (>60); GFR (African American) 87 ML/MIN (>60); Globulin 3.1 g/dL (1.3-3.2); Glucose 96 mg/dl (74-100); HDL Cholesterol 73 mg/dl (40-60); Potassium 4.2 mmoL/L (3.5-5.1); Sodium 139 mmol/L (136-145); Total Protein,Serum 7.8 g/dl (6.3-8.2); Triglycerides 287 mg/dl (30-150); VLDL Cholesterol 57 mg/dL (0-40)
[2022-09-14 17:09] LABS: Direct LDL Cholesterol 120.66 mg/dL (100-129)
== END ==
PROVIDERS: Visit Provider Nurse Practitioner Family
DX: I10 Essential (primary) hypertension (principal)
CPT/HCPCS: 80053; 80061; 85025

== ENCOUNTER → 2022-10-09 15:30 | Outpatient (CLI) | payer BC, SELFPAY ==
--- NOTE | 2022-10-09 15:30 | MM_ITS ---
PROCEDURE INFORMATION: Exam: MG Bilateral Screening 3D Mammography Exam date and time: 10/09/2022 3:21 PM Age: 62 years old Clinical indication: Screening. Her sister had breast cancer. TECHNIQUE: Imaging protocol: Bilateral Screening tomosynthesis and 2D mammography including computer-aided detection (CAD) when performed. COMPARISON: MG MM DIG SCREENING MAMM BI W/CAD 03/13/2019 5:04 PM FINDINGS: MAMMOGRAPHY: Breast composition: The breasts are heterogeneously dense, which may obscure small masses. Mass: No suspicious mass. Architectural distortion: None. Calcifications: No suspicious calcifications. Asymmetric density: None. Skin thickening: None. Axillary adenopathy: None. IMPRESSION: No mammographic evidence of malignancy. Annual screening is recommended unless otherwise clinically indicated. ASSESSMENT: BI-RADS Category 1: Negative
[2022-10-09 17:13] LABS: Thyroid Stimulating Hormone 2.05 uIU/mL (0.465-4.68)
[2022-10-09 17:49] LABS: Vitamin B12 685 pg/mL (239-931)
[2022-10-09 17:57] LABS: Folate > 20.00 ng/mL
== END ==
PROVIDERS: Nurse Practitioner Family; PCP Family Medicine; Visit Provider Family Medicine
DX: Z12.31 Encounter for screening mammogram for malignant neoplasm of breast (principal); I10 Essential (primary) hypertension; R06.83 Snoring; R51.9 Headache, unspecified
CPT/HCPCS: 36415; 77063; 77067; 82607; 82746; 84443

== ENCOUNTER → 2022-11-13 14:07 | Outpatient (CLI) | payer BC, SELFPAY | PROVIDERS: PCP Family Medicine; Visit Provider Specialist | DX: R51.9 Headache, unspecified (principal); R06.83 Snoring; I10 Essential (primary) hypertension; G47.33 Obstructive sleep apnea (adult) (pediatric) | CPT/HCPCS: G0399 ==

== ENCOUNTER 2023-02-26 11:52 | Emergency (ER) | payer BC, SELFPAY ==
[2023-02-26 11:55] VITALS: BP 136/78; PULSE 74; RESP 18; TEMP 36.6; O2SAT 98; BMI 31.4
--- NOTE | 2023-02-26 12:26 | EXP.UTC ---
Discharge Plan Disposition Patient Disposition: Home, Self-Care Condition: Good Prescriptions Prescriptions: New meclizine 25 mg tablet 25 mg PO TID PRN (Reason: dizziness or vertigo) Qty: 15 0RF amoxicillin 500 mg capsule 500 mg PO TID 10 Days Qty: 30 0RF No Action cholecalciferol (vitamin D3) [Vitamin D3] 25 mcg (1,000 unit) capsule 25 mcg PO DAILY atorvastatin 10 mg tablet 10 mg PO DAILY 90 Days Qty: 90 0RF gabapentin 100 mg capsule 100 mg PO BID Qty: 180 1RF propranolol 80 mg capsule,extended release 24hr 80 mg PO DAILY Qty: 90 3RF rizatriptan 10 mg tablet,disintegrating See Rx Instructions PO .COMPLEX Qty: 10 5RF Rx Instructions: take 1 tab at onset of headache; if no relief may repeat 1 tab after at least 2 hrs; max = 2 tabs/24 hr or 4 tab per week pantoprazole 40 mg tablet,delayed release (DR/EC) 40 mg PO DAILY 90 Days Qty: 90 0RF buspirone 10 mg tablet 10 mg PO DAILY Referrals Follow up/Referrals: Aron Lou MD [Primary Care Provider] - See instructions Activity Restrictions/Add. Instructions Additional Instructions/Restrictions: Slow steady movements as long as you are having dizziness Take medication as prescribed Follow up with your Family Doctor if symptoms continue Straight to ER if any life threatening symptoms Clinical Impressions Clinical Impression: Infection of left inner ear Stand Alone Forms Stand Alone Forms: Work/School Release Instructions Patient Instructions: DI for Vertigo, Meclizine Discharge ED Provider: Felipa Corcoran [facility] General Stated complaint: passed out 02/26, vomiting Mode of Arrival: Ambulatory Source of Information: Patient Limitations: No Limitations Time Seen by Provider: 02/26/23 12:26 Description of Symptoms (Recalled from Triage Doc. by RN): PATIENT STATES SHE WAS AT WORK TODAY WHEN SHE GOT HOT AND BECAME DIZZY. SHE STATES SHE HAD TO SIT AND FELT LIKE SHE WAS GOING TO PASS OUT. HEENT Symptoms (Recalled from RN notes): No Resp Symptoms (Recalled from RN notes): No Skin Symptoms (Recalled from RN notes): No MS Symptoms (Recalled from RN notes): No Functional Status (Recalled from RN notes): WNL History of Present Illness Provider Complaint: Patient states that she recently had a bad ear infection that busted her ear drum States that she has been having pain and pressure in her left ear and has hx of vertigo States that she was at work earlier and she got hot and felt dizzy so she had to sit down to keep from passing out States that now everytime she moves her head she feels like the room starts spinning so they sent her up here to get her checked States that she feels like it is inner ear infection again feels like it did last time Related Data Home Medications Medication Instructions Recorded Confirmed buspirone 10 mg tablet 10 mg PO DAILY . 09/10/22 02/08/23 cholecalciferol (vitamin D3) 25 25 mcg PO DAILY 09/14/22 02/08/23 mcg (1,000 unit) capsule (Vitamin D3) Previous Rx's Medication Instructions Recorded rizatriptan 10 mg disintegrating See Rx Instructions PO .COMPLEX 11/16/22 tablet #10 tabs atorvastatin 10 mg tablet 10 mg PO DAILY 90 days #90 tabs 12/18/22 gabapentin 100 mg capsule 100 mg PO BID #180 caps 12/19/22 propranolol 80 mg capsule,24 80 mg PO DAILY #90 caps 12/19/22 hr,extended release pantoprazole 40 mg tablet,delayed 40 mg PO DAILY GERD 90 days #90 01/30/23 release tabs amoxicillin 500 mg capsule 500 mg PO TID 10 days #30 caps 02/26/23 meclizine 25 mg tablet 25 mg PO TID PRN dizziness or 02/26/23 vertigo #15 tabs Allergies Allergy/AdvReac Type Severity Reaction Status Date / Time Sulfa (Sulfonamide Allergy Intermediate I-ITCHING Verified 02/08/23 11:39 Antibiotics) [SULFA (SULFONAMIDE ANTIBIOTICS)] levofloxacin [From LEVAQUIN] Allergy Unknown Verified 02/08/23 11:39 Worker's Comp Is this a Worker's Comp case?: [facility]
[2023-02-26 12:34] VITALS: BP 136/78; PULSE 74; RESP 18; TEMP 36.6; O2SAT 98
== END 2023-02-26 12:36 | disposition home or self-care (01) ==
PROVIDERS: Emergency Provider Nurse Practitioner; PCP Family Medicine
DX: H83.02 Labyrinthitis, left ear (principal)
CPT/HCPCS: 99212; 99214; G0463

== ENCOUNTER 2023-04-03 10:59 | Emergency (ER) | payer BC, SELFPAY ==
[2023-04-03 11:01] VITALS: BP 153/104; PULSE 63; RESP 18; TEMP 36.8; O2SAT 96; BMI 31.1
--- NOTE | 2023-04-03 11:16 | PC.NURSE ---
Dr. Granados at [facility] for pt eval
--- NOTE | 2023-04-03 11:36 | HMH.EDGENADL ---
Discharge Plan Disposition Patient Disposition: Home, Self-Care Prescriptions Prescriptions: New diazepam [Valium] 2 mg tablet 2 mg PO BID PRN (Reason: vertigo) 5 Days Qty: 10 0RF prednisone 50 mg tablet 50 mg PO DAILY 5 Days Qty: 5 0RF Rx Instructions: Please begin 1 day after ED visit No Action cholecalciferol (vitamin D3) [Vitamin D3] 25 mcg (1,000 unit) capsule 25 mcg PO DAILY propranolol 80 mg capsule,extended release 24hr 80 mg PO DAILY Qty: 90 3RF gabapentin 100 mg capsule 100 mg PO BID PRN amoxicillin-pot clavulanate 875-125 mg tablet 1 tab PO BID 10 Days Qty: 20 0RF meclizine 25 mg tablet 25 mg PO TID PRN (Reason: dizziness or vertigo) Qty: 30 0RF rizatriptan 10 mg tablet,disintegrating See Rx Instructions PO .COMPLEX Qty: 10 5RF Rx Instructions: take 1 tab at onset of headache; if no relief may repeat 1 tab after at least 2 hrs; max = 2 tabs/24 hr or 4 tab per week pantoprazole 40 mg tablet,delayed release (DR/EC) 40 mg PO DAILY 90 Days Qty: 90 0RF atorvastatin 10 mg tablet 10 mg PO DAILY 90 Days Qty: 90 0RF buspirone 10 mg tablet 10 mg PO DAILY Referrals Follow up/Referrals: Provider,Referral, MD [Primary Care Provider] - See instructions Activity Restrictions/Add. Instructions Additional Instructions/Restrictions: Center history and physical there is no evidence of a central cause of your vertigo. It seems as if you recently had otitis media and on your exam there is no ongoing inflammation of the external auditory canal or of the tympanic membrane and your symptoms likely will take some time to improve. He did not improve with the Lionel maneuver. Please take your Valium as needed for your symptoms. And keep your ENT follow-up as discussed. Clinical Impressions Clinical Impression: Peripheral vertigo Discharge ED Provider: Reshma Ricci General Adult HPI General Chief complaint: Dizziness Stated complaint: dizzy,nausea,passed out this morning,ear pain Time Seen by Provider: 04/03/23 11:05 Mode of Arrival: Wheelchair Source of Information: Patient Limitations: No Limitations Description of Symptoms (Recalled from ER Triage Doc. by RN): c/o dizziness, nausea for one month. Pt states he doctor has been tx her for a ear infection and vertigo. States when she takes meclizine it gets better but she is unable to take it due to making her drowsy and unable to function at work. History of Present Illness HPI narrative: Patient is a 62-year-old female presenting today with vertigo. States this began with an ear infection about 1 month ago with significant ear pain and pressure was told by her primary care doctor that she had a tympanic membrane rupture and was started on amoxicillin. States her symptoms did not significantly improve and she went back to the doctor where they told her that they were going to escalate her antibiotics to Augmentin. She is on the end of that course of therapy at the moment without any significant improvement. She has no changes in coordination or vision or any other neurologic symptoms. She had a mild headache but nothing severe and no fevers. She states her symptoms are worsened with movement. The biggest reason she came to the emergency department today is that her daughter is getting and she has a flight to [place] tomorrow and she was trying to see if there is anything that she could do to make her symptoms better today. Related Data Home Medications Medication Instructions Recorded Confirmed buspirone 10 mg tablet 10 mg PO DAILY . 09/10/22 03/26/23 cholecalciferol (vitamin D3) 25 25 mcg PO DAILY 09/14/22 03/26/23 mcg (1,000 unit) capsule (Vitamin D3) gabapentin 100 mg capsule 100 mg PO BID PRN 03/26/23 Previous Rx's Medication Instructions Recorded rizatriptan 10 mg disintegrating See Rx Instructions PO .COMPLEX 11/16/22 tablet #10 tabs propranolol 80 mg capsule,24 80 mg PO
[2023-04-03 11:44] VITALS: BP 123/82; PULSE 62; RESP 18; TEMP 36.8; O2SAT 100
== END 2023-04-03 11:45 | disposition home or self-care (01) ==
PROVIDERS: Emergency Provider Student in an Organized Health Care Education/Training Program
DX: R42 Dizziness and giddiness (principal); R11.0 Nausea; H92.09 Otalgia, unspecified ear; M79.7 Fibromyalgia; G43.909 Migraine, unspecified, not intractable, without status migrainosus; M19.91 Primary osteoarthritis, unspecified site
CPT/HCPCS: 99283

== ENCOUNTER → 2023-04-18 08:11 | Outpatient (CLI) | payer BC, SELFPAY ==
--- NOTE | 2023-04-18 08:11 | CT_ITS ---
FINAL REPORT CLINICAL HISTORY: Vertigo and Tinnitus COMPARISON: CTA head 08/23/2022 FINDINGS: Axial images of the head were obtained without contrast. Coronal reformatted images were also obtained. This study was performed with techniques to keep radiation doses as low as reasonably achievable (ALARA). Individualized dose reduction techniques using automated exposure control or adjustment of mA and/or kV according to the patient''s size were employed. There is generalized age-appropriate atrophy. Periventricular low-attenuation areas are seen consistent with mild chronic ischemic changes. There is no evidence of intracranial hemorrhage or mass. There is no evidence of acute infarct. There is no evidence of shift of the midline structures. No skull abnormality is seen on the bone window images. IMPRESSION: Atrophy and mild periventricular chronic ischemic changes. No acute intracranial abnormality identified. Reviewed, Interpreted and Dictated by Kenrick Ornelas III, MD Transcribed by Yudith Rachel Authenticated and [facility]
== END ==
LOC: RAD 08:11
PROVIDERS: PCP Family Medicine; Visit Provider Nurse Practitioner
DX: H81.399 Other peripheral vertigo, unspecified ear (principal); H93.19 Tinnitus, unspecified ear
CPT/HCPCS: 70450

== ENCOUNTER → 2023-04-23 10:27 | Outpatient (CLI) | payer BC, SELFPAY ==
[2023-04-23 11:36] LABS: Basophils % 0.8 % (0.1-2.0); Eosinophils # 0.2 K/mm3 (0.0-0.4); Eosinophils % 4.7 % (0.1-12.0); Hemoglobin 14.8 g/dL (12.2-16.2); Lymphocytes # 1.4 K/mm3 (0.7-4.5); Lymphocytes % 29.3 % (10-50); Mean Corpuscular HGB Conc 32.2 g/dL (31.8-35.4); Mean Corpuscular Hemoglobin 31.2 pg (27.0-31.2); Mean Corpuscular Volume 97.1 fl (81-99); Mean Platelet Volume 7.4 fl (7.4-10.4); Monocytes # 0.3 K/mm3 (0.1-1.0); Neutrophils % 60.2 % (37.0-80.0); Platelet Count 240 K/mm3 (142-424); Red Blood Count 4.73 M/mm3 (4.20-5.40); Red Cell Distribution Width 13.2 % (11.5-17.5); White Blood Count 4.9 K/mm3 (4.8-10.8)
[2023-04-23 12:55] LABS: Chloride 108 mmol/L (98-107); Sodium 139 mmol/L (136-145)
[2023-04-23 12:58] LABS: Alanine Aminotransferase 36 U/L (12-78); Albumin/Globulin Ratio 1.4 (1.1-1.8); Alkaline Phosphatase 63 U/L (38-126); Aspartate Amino Transferase 38 U/L (14-36); Bilirubin,Total 0.8 mg/dl (0.2-1.3); Blood Urea Nitrogen 19 mg/dl (7-17); Carbon Dioxide 21 mmol/L (22.0-30.0); Estimated Glomerular Filt Rate 84 ml/min (>60); GFR (African American) 102 ML/MIN (>60); Globulin 2.9 g/dL (1.3-3.2); Total Protein,Serum 6.9 g/dl (6.3-8.2)
[2023-04-23 12:59] LABS: Calcium 8.7 mg/dl (8.4-10.2); Glucose 99 mg/dl (74-100)
[2023-04-23 13:11] LABS: Free T4 (Free Thyroxine) 1.09 ng/dl (0.78-2.19)
[2023-04-23 13:30] LABS: Thyroid Stimulating Hormone 0.93 uIU/mL (0.465-4.68)
== END ==
PROVIDERS: PCP Family Medicine; Visit Provider Nurse Practitioner
DX: R53.83 Other fatigue (principal)
CPT/HCPCS: 36415; 80053; 84439; 84443; 85025

== ENCOUNTER → 2023-05-11 15:35 | Outpatient (POV) | payer BC, SELFPAY | PROVIDERS: Visit Provider Specialist/Technologist | DX: Z00.00 Encounter for general adult medical examination without abnormal findings (principal) ==

== ENCOUNTER 2023-10-22 23:21 | Outpatient (CLI) | payer MEDICARE, SELFPAY ==
[2023-10-22 18:51] LABS: Chloride 109 mmol/L (98-107); Potassium 4.4 mmoL/L (3.5-5.1); Sodium 139 mmol/L (136-145)
[2023-10-22 18:53] LABS: Alanine Aminotransferase 30 U/L (12-78); Aspartate Amino Transferase 36 U/L (14-36); Blood Urea Nitrogen 20 mg/dl (7-17); Estimated Glomerular Filt Rate 72 ml/min (>60); GFR (African American) 87 ML/MIN (>60)
[2023-10-22 18:54] LABS: Albumin Level 4.4 g/dl (3.5-5.0); Albumin/Globulin Ratio 1.6 (1.1-1.8); Alkaline Phosphatase 77 U/L (38-126); Anion Gap 9.4 mEq/L (5-15); Bilirubin,Total 0.5 mg/dl (0.2-1.3); Calcium 9.9 mg/dl (8.4-10.2); Carbon Dioxide 25 mmol/L (22.0-30.0); Cholesterol 239 mg/dl (140-200); Globulin 2.7 g/dL (1.3-3.2); Glucose 86 mg/dl (74-100); HDL Cholesterol 81 mg/dl (40-60); Total Protein,Serum 7.1 g/dl (6.3-8.2); Triglycerides 235 mg/dl (30-150); VLDL Cholesterol 47 mg/dL (0-40)
[2023-10-22 19:05] LABS: Direct LDL Cholesterol 100.75 mg/dL (100-129)
== END 2023-10-22 23:59 ==
LOC: LAB.DROPOF 23:21
PROVIDERS: PCP Family Medicine; Visit Provider Family Medicine
DX: I10 Essential (primary) hypertension (principal)
CPT/HCPCS: 80053; 80061

== ENCOUNTER 2023-10-25 15:37 | Outpatient (CLI) | payer MEDICARE, SELFPAY ==
--- NOTE | 2023-10-25 15:38 | MM_ITS ---
PROCEDURE INFORMATION: Exam: MG Bilateral Screening 3D Mammography Exam date and time: 10/25/2023 3:29 PM Age: 63 years old Clinical indication: Screening examination. Her sister had breast cancer at age 50. TECHNIQUE: Imaging protocol: Bilateral Screening tomosynthesis and 2D mammography including computer-aided detection (CAD) when performed. COMPARISON: 1. MG MM DIG SCREENING MAMM BI W/CAD 10/09/2022 3:21 PM 2. MG MM DIG SCREENING MAMM BI W/CAD 03/13/2019 5:04 PM FINDINGS: MAMMOGRAPHY: Breast composition: The breasts are heterogeneously dense, which may obscure small masses. Mass: No suspicious mass. Architectural distortion: None. Calcifications: No suspicious calcifications. Asymmetric density: None. Skin thickening: None. Axillary adenopathy: None. IMPRESSION: No mammographic evidence of malignancy. Annual screening is recommended unless otherwise clinically indicated. ASSESSMENT: BI-RADS Category 1: Negative
== END 2023-10-25 23:59 ==
LOC: RAD 15:38
PROVIDERS: PCP Family Medicine; Visit Provider Family Medicine
DX: Z12.31 Encounter for screening mammogram for malignant neoplasm of breast (principal)
CPT/HCPCS: 77063; 77067

== ENCOUNTER 2023-12-19 04:16 | Emergency (ER) | payer MEDICARE, SELFPAY ==
[2023-12-19] VITALS (9 sets, daily range): BP systolic 135–185; BP diastolic 76–113; PULSE 63–79; RESP 18–20; TEMP 36.7–36.9; O2SAT 92–95; BMI 31.1
--- NOTE | 2023-12-19 04:32 | HMH.EDGENADL ---
Discharge Plan Disposition Patient Disposition: Home, Self-Care Prescriptions Prescriptions: No Action cholecalciferol (vitamin D3) [Vitamin D3] 25 mcg (1,000 unit) capsule 25 mcg PO DAILY azelastine 137 mcg (0.1 %) aerosol,spray 2 spray intranasal BID Qty: 30 2RF Rx Instructions: administer into each nostril rizatriptan 10 mg tablet,disintegrating See Rx Instructions PO .COMPLEX Qty: 10 5RF Rx Instructions: take 1 tab at onset of headache; if no relief may repeat 1 tab after at least 2 hrs; max = 2 tabs/24 hr or 4 tab per week pantoprazole 40 mg tablet,delayed release (DR/EC) 40 mg PO DAILY 90 Days Qty: 90 0RF propranolol 80 mg capsule,extended release 24 hr 80 mg PO DAILY 90 Days Qty: 90 0RF levocetirizine [Xyzal] 5 mg tablet 5 mg PO DAILY Qty: 30 2RF atorvastatin 10 mg tablet 10 mg PO DAILY 90 Days Qty: 90 0RF buspirone 10 mg tablet 10 mg PO DAILY Referrals Follow up/Referrals: Aron Lou MD [Primary Care Provider] - See instructions Activity Restrictions/Add. Instructions Additional Instructions/Restrictions: Please follow-up with your primary care provider. Please return to the emergency department if you develop any new or worsening symptoms or become concerned for your health. Clinical Impressions Clinical Impression: Migraine headache with aura Discharge ED Provider: Manuel Herrera Adult HPI General Chief complaint: Headache Stated complaint: headache, nausea, lightheaded Time Seen by Provider: 12/19/23 04:23 History of Present Illness HPI narrative: 63-year-old female with history of migraines presents with abnormal headache. She reports that she has had a headache for about a week after starting a new stressful job. She presents tonight because she has had severe worsening of the headaches over the last couple of days that is abnormal for her. On Sunday she had a episode of vertigo lasting a few minutes with a resultant sudden severe worsening in headache. She denies having any vision changes numbness or weakness at that time. She has had a continuous headache since that time that has been waxing and waning in intensity but has always been present. She had a new worsening headache at approximately 3:30 AM this morning. This was associated with more severe pain in the back of her head and in her right arm. She reports that she had some blurry vision for a couple of minutes but it resolved spontaneously. She does frequently get headaches, usually with aura. They do not usually last this long. She usually takes a triptan with relief. She denies any current numbness, weakness, dizziness. She reports sensitivity to light and noise. Related Data Home Medications Medication Instructions Recorded Confirmed buspirone 10 mg tablet 10 mg PO DAILY . 09/10/22 10/22/23 cholecalciferol (vitamin D3) 25 25 mcg PO DAILY 09/14/22 10/22/23 mcg (1,000 unit) capsule (Vitamin D3) Previous Rx's Medication Instructions Recorded azelastine 137 mcg (0.1 %) nasal 2 spray intranasal BID #30 mL 04/23/23 spray aerosol pantoprazole 40 mg tablet,delayed 40 mg PO DAILY GERD 90 days #90 04/24/23 release tabs rizatriptan 10 mg disintegrating See Rx Instructions PO .COMPLEX 05/31/23 tablet #10 tabs propranolol 80 mg capsule,24 80 mg PO DAILY 90 days #90 caps 07/19/23 hr,extended release levocetirizine 5 mg tablet (Xyzal) 5 mg PO DAILY #30 tabs 07/23/23 atorvastatin 10 mg tablet 10 mg PO DAILY 90 days #90 tabs 11/29/23 Allergies Allergy/AdvReac Type Severity Reaction Status Date / Time Sulfa (Sulfonamide Allergy Intermediate I-ITCHING Verified 10/22/23 09:31 Antibiotics) [SULFA (SULFONAMIDE ANTIBIOTICS)] levofloxacin [From LEVAQUIN] Allergy Unknown Verified 10/22/23 09:31 [facility] Disclaimer: The information contained in this section may have been updated after the patient was seen, as this information can be updated by other users. Medical History Chronic eustachian tube dysfunction Otitis externa of left ear Vertigo Foreign body of ear, left Tinnitus Fatigue SOLA (obstructive sleep apnea) Skin cancer Kidney stones Diverticulitis Degenerative disc disease Osteoarthritis Fibromyalgia Migraines Surgical History H/O lithotripsy H/O thumb surgery History of appendectomy Family History Sister Cancer Diabetes Hypertension Stroke Father Coronary artery disease Grandmother Diabetes Brother Hypertension Social History Smoking Status: Never smoker second hand exposure: No alcohol intake: never substance use type: denies use current occupational status: employed Travel in the last 8 weeks: None household members: none housing: house current occupation: [employer] current occupational exposures/hazards: No caffeine: Yes ROS Obtained: Yes All systems reviewed & no additional complaints except as documented Physical Exam General General appearance: alert Comment: Uncomfortable appearing, lights off, speaking quietly Head Head exam: atraumatic and normocephalic Eye Eye exam: Present normal appearance, PERRL and EOMI; Absent nystagmus ENT ENT exam: Present normal oropharynx and normal external ear exam Neck Neck exam: Present normal inspection and full ROM Chest Chest inspection: Present normal inspection and symmetric chest wall rise; Absent tenderness Respiratory Respiratory exam: Present normal lung sounds bilaterally; Absent respiratory distress Cardiovascular Cardiovascular exam: Present regular rate and normal rhythm Abdominal Exam Abdominal exam: Present soft; Absent distention, tenderness or guarding Extremities Exam Extremities exam: Present normal inspection; Absent edema or joint swelling Back Exam Back exam: Present normal inspection; Absent tenderness Neurological Exam Neurological exam: Present alert, oriented X3, CN II-XII intact and reflexes normal; Absent motor sensory deficit Psychiatric Psychiatric exam: Present normal affect and normal mood Skin Skin exam: Present warm, dry and normal color Lymphatic Lymphatic Findings: no adenopathy Medical Decision Making Medical Records Medical records reviewed: Yes I reviewed the patient's medical records. Amadeo Inquiry Pt receiving controlled substance: No Amadeo was queried for this patient: No Vital Signs: 12/19/23 04:28 12/19/23 05:00 12/19/23 05:30 Temperature 98.4 F Temperature Source Oral Pulse Rate 74 63 Pulse Rate [Left Radial] 78 Respiratory Rate 20 Blood Pressure 171/109 H 175/92 H Blood Pressure [Right Arm] 185/113 H Blood Pressure Mean 129 124 Blood Pressure Mean [Right Arm] 137 Blood Pressure Source [Right Arm] Automatic Cuff Blood Pressure Position [Right Arm] Sitting 02 Sat by Pulse Oximetry 95 95 95 Oxygen Delivery Method Room Air 12/19/23 05:40 12/19/23 06:06 12/19/23 06:17 Temperature Temperature Source Pulse Rate 70 64 64 Pulse Rate [Left Radial] Respiratory Rate Blood Pressure 175/92 H 138/83 138/83 Blood Pressure [Right Arm] Blood Pressure Mean 103 Blood Pressure Mean [Right Arm] Blood Pressure Source [Right Arm] Blood Pressure Position [Right Arm] 02 Sat by Pulse Oximetry 95 94 L 94 L Oxygen Delivery Method 12/19/23 06:31 12/19/23 07:00 Temperature Temperature Source Pulse Rate 65 79 Pulse Rate [Left Radial] Respiratory Rate Blood Pressure 135/76 150/95 H Blood Pressure [Right Arm] Blood Pressure Mean 95 Blood Pressure Mean [Right Arm] Blood Pressure Source [Right Arm] Blood Pressure Position [Right Arm] 02 Sat by Pulse Oximetry 95 93 L Oxygen Delivery Method Lab Data Lab results reviewed: Yes I reviewed the patient's lab results. Lab Results 12/19/23 04:26: WBC 7.5, RBC 5.02, Hgb 16.2, Hct 49.5 H, MCV 98.7, MCH 32.2 H, MCHC 32.6, RDW 13.6, Plt Count 263, MPV 7.5, Neut % (Auto) 56.8, Lymph % (Auto) 32.0, Riley % (Auto) 5.1, Eos % (Auto) 4.4, Baso % (Auto) 1.7, Neut # (Auto) 4.2, Lymph # (Auto) 2.4, Riley # (Auto) 0.4, Eos # (Auto) 0.3, Baso # (Auto) 0.1, Sodium 140, Potassium 4.1, Chloride 105, Carbon Dioxide 25, Anion Gap 14.1, BUN 29 H, Creatinine 0.90, Estimated Creat Clear 68, Estimated GFR 63, Est GFR ( Amer) 76, Glucose 112 H, Calcium 9.8, Total Bilirubin 0.5, AST 40 H, ALT 29, Alkaline Phosphatase 58, Total Protein 8.0, Albumin 4.6, Globulin 3.4 H, Albumin/Globulin Ratio 1.4 12/19/23 04:26 12/19/23 04:26 Orders (Tests/Meds): ED MEDICATIONS Generic Name Dose Route Start Last Admin Trade Name Freq PRN Reason Stop Dose Admin Dexamethasone 10 mg 12/19/23 07:06 Dexamethasone 4mg Tablet PO 12/19/23 07:07 ONCE ONE Sodium Chloride 10 ml 12/19/23 04:40 Sodium Chloride 0.9% 10ml Flush Syringe IV 01/18/24 04:39 NEEDED PRN Maintain IV Site Sodium Chloride 10 ml 12/19/23 05:18 12/19/23 06:16 Sodium Chloride 0.9% 10ml Syr (Rad Only) IV 01/18/24 05:17 10 ml NEEDED PRN Administration Maintain IV Site Sodium Chloride 10 ml 12/19/23 06:15 Sodium Chloride 0.9% 10ml Syr (Rad Only) IV 01/18/24 06:14 NEEDED PRN Maintain IV Site Discontinued Medications Generic Name Dose Route Start Last Admin Trade Name Freq PRN Reason Stop Dose Admin Acetaminophen 1,000 mg 12/19/23 04:40 12/19/23 04:49 Acetaminophen 500mg Tab PO 12/19/23 04:41 1,000 mg ONCE ONE Administration Diphenhydramine HCl 25 mg 12/19/23 04:40 12/19/23 04:49 Diphenhydramine 50mg/Ml Vial IV 12/19/23 04:41 25 mg ONCE ONE Administration Sodium Chloride 1,000 mls @ 999 mls/hr 12/19/23 04:45 12/19/23 04:49 Sod Chlor 0.9% 1000ml Bag IV 12/19/23 05:45 999 mls/hr .Q1H1M AYLIN Administration Lactated Ringer's 1,000 mls @ 999 mls/hr 12/19/23 04:45 12/19/23 04:50 Lactated Ringer's 1000 Ml Bag IV 12/19/23 05:45 Not Given .Q1H1M AYLIN Magnesium Sulfate 2 gm in 50 mls @ 50 mls/hr 12/19/23 05:53 12/19/23 06:05 Magnesium Sulfate 2gm/50ml Premix IV 12/19/23 06:52 50 mls/hr ONCE ONE Administration Iopamidol 100 ml 12/19/23 05:18 12/19/23 05:19 Iopamidol-370 (76%);100ml Bottle IV 12/19/23 05:19 100 ml ONCE ONE Administration Iopamidol 100 ml 12/19/23 06:15 12/19/23 06:16 Iopamidol-370 (76%);100ml Bottle IV 12/19/23 06:16 100 ml ONCE ONE Administration Ketorolac Tromethamine 30 mg 12/19/23 04:40 12/19/23 04:49 Ketorolac 30mg/Ml Vial IV 12/19/23 04:41 30 mg ONCE ONE Administration Prochlorperazine Edisylate 10 mg 12/19/23 04:40 12/19/23 04:49 Prochlorperazine 10mg/2ml Vial IV 12/19/23 04:41 10 mg ONCE ONE Administration Sodium Chloride 50 ml 12/19/23 05:18 12/19/23 05:19 0.9 % Sodium Chloride 50 Ml Vial IV 12/19/23 05:19 50 ml ONCE ONE Administration ORDERS Category Date Time Status CT Venogram head Stat Cat Scan 12/19/23 05:[address] angio head Stat Cat Scan 12/19/23 04:[address] angio neck Stat Cat Scan 12/19/23 04:[address] head/brain wo con Stat Cat Scan 12/19/23 04:40 Completed CMP [Comprehensive Metabolic Panel] Stat Lab 12/19/23 04:26 Completed Complete Blood Count Auto Diff Stat Lab 12/19/23 04:26 Completed Medical Decision Narrative: 63-year-old female with history of chronic migraines presents with persistent abnormal severe headache with episode of transient vertigo on Sunday and episode of transient vision blurriness this morning. History was obtained interactive discussion with patient, chart review. On arrival, patient is [afebrile, hemodynamically stable, satting appropriately, alert, oriented x4, GCS 15], moving all extremities spontaneously. Full physical exam performed and significant for uncomfortable appearing patient without focal neurologic deficit. Differential includes but is not limited to migraine headache, tension headache, subarachnoid hemorrhage, intracranial mass, stroke, intracranial thrombosis. Patient was given 1 L IV fluid bolus, Tylenol, Toradol, Compazine, Benadryl, IV magnesium, Decadron for symptomatic management and correction of underlying abnormalities. Workup initiated including CBC CMP CT head CTA head neck CTV. On re-evaluation, patient [remains afebrile, HD stable.] Headache improved, now 2 out of 10. Laboratory workup independently interpreted by me and significant for no significant leukocytosis, no significant electrolyte derangement. Imaging independently interpreted by me and significant for no intracranial bleeding, no acute arterial thrombosis, no venous thrombosis, no aneurysmal dilatation, no evidence of acute or subacute stroke. See radiology read for full review of final results. On further reassessment, patient reports that she feels somewhat drowsy secondary to medications but reports her headache is completely gone. Given patient history, exam and workup, patient's presentation most likely represents atypical migraine with status migrainosus. I cannot completely exclude stroke/TIA as the underlying etiology of patient's symptoms, but given she has chronic headaches, negative CTs and symptomatic treatment medications I think this is less likely. I discussed these concerns and findings with the patient. At this time she reports that she feels essentially normal and is ready to be discharged. Patient was discharged in stable condition with return precautions. Procedures Risk/Benefits of Procedure(s) Were Explained: Yes Critical Care Critical Care Time Critical Care Time: No
--- NOTE | 2023-12-19 04:40 | CT_ITS ---
PROCEDURE INFORMATION: Exam: CT Head Without Contrast Exam date and time: 12/19/2023 5:09 AM Age: 63 years old Clinical indication: Pain; Headache; Additional info: New headache TECHNIQUE: Imaging protocol: Computed tomography of the head without contrast. Radiation optimization: All CT scans at this facility use at least one of these dose optimization techniques: automated exposure control; mA and/or kV adjustment per patient size (includes targeted exams where dose is matched to clinical indication); or iterative reconstruction. COMPARISON: CT ANGIO HEAD 12/19/2023 5:09 AM FINDINGS: Brain: Normal. No hemorrhage. Unremarkable white matter. No mass effect. Cerebral ventricles: No ventriculomegaly. Paranasal sinuses: Visualized sinuses are unremarkable. No fluid levels. Mastoid air cells: Visualized mastoid air cells are well aerated. Bones: Unremarkable. No acute fracture. Soft tissues: Unremarkable. IMPRESSION: No acute intracranial abnormality.
--- NOTE | 2023-12-19 04:41 | CT_ITS ---
PROCEDURE INFORMATION: Exam: CTA Head With Contrast, Arteriography Exam date and time: 12/19/2023 5:09 AM Age: 63 years old Clinical indication: Pain; Headache; Additional info: New severe headache TECHNIQUE: Imaging protocol: Computed tomographic angiography of the head with contrast. Exam focused on the arteries. 3D rendering (Not supervised by radiologist): MIP and/or 3D reconstructed images were created by the technologist. Radiation optimization: All CT scans at this facility use at least one of these dose optimization techniques: automated exposure control; mA and/or kV adjustment per patient size (includes targeted exams where dose is matched to clinical indication); or iterative reconstruction. Contrast material: ISOVUE 370; Contrast volume: 100 ml; Contrast route: INTRAVENOUS (IV); COMPARISON: CT ANGIO HEAD 08/23/2022 1:19 PM FINDINGS: ANTERIOR CIRCULATION: Right internal carotid artery: Intracranial segment is patent with no significant stenosis. No aneurysm. Right middle cerebral artery: No occlusion or significant stenosis. No aneurysm. Right anterior cerebral artery: No occlusion or significant stenosis. No aneurysm. Left internal carotid artery: Retropharyngeal course of the left extracranial internal carotid artery. Left middle cerebral artery: No occlusion or significant stenosis. No aneurysm. Left anterior cerebral artery: No occlusion or significant stenosis. No aneurysm. POSTERIOR CIRCULATION: Right vertebral artery: No occlusion or significant stenosis. No aneurysm. Left vertebral artery: No occlusion or significant stenosis. No aneurysm. Basilar artery: No occlusion or significant stenosis. No aneurysm. Right posterior cerebral artery: No occlusion or significant stenosis. No aneurysm. Left posterior cerebral artery: No occlusion or significant stenosis. No aneurysm. Aorta: Two-vessel arch. Brain: No definite mass, mass effect, or midline shift. Cerebral ventricles: No ventriculomegaly. Bones/joints: Diffuse degenerative change of the visualized osseous structures, moderate to severe. Bilateral moderate foraminal narrowing at C4 through C7. Anterolisthesis of C3 on C4, grade 1. Grade 1 anterolisthesis of C2 on C3. Soft tissues: Unremarkable. Other findings: Tortuous bilateral internal carotid arteries. IMPRESSION: 1. No acute vascular findings. 2. Degenerative change of the visualized osseous structures with details above. 3. Additional nonacute findings as above.
--- NOTE | 2023-12-19 04:41 | CT_ITS ---
PROCEDURE INFORMATION: Exam: CTA Neck With Contrast Exam date and time: 12/19/2023 5:09 AM Age: 63 years old Clinical indication: Pain; Headache; Additional info: New severe headache TECHNIQUE: Imaging protocol: Computed tomographic angiography of the neck with contrast. Exam focused on the cervical segments of the vasculature. 3D rendering (Not supervised by radiologist): MIP and/or 3D reconstructed images were created by the technologist. Radiation optimization: All CT scans at this facility use at least one of these dose optimization techniques: automated exposure control; mA and/or kV adjustment per patient size (includes targeted exams where dose is matched to clinical indication); or iterative reconstruction. Contrast material: ISOVUE 370; Contrast volume: 100 ml; Contrast route: INTRAVENOUS (IV); COMPARISON: CT ANGIO NECK 08/23/2022 1:19 PM FINDINGS: Right common carotid artery: No stenosis. No dissection or occlusion. Right internal carotid artery: No stenosis of the extracranial segment. No dissection or occlusion. Right external carotid artery: No occlusion or stenosis of the origin. Left common carotid artery: No stenosis. No dissection or occlusion. Left internal carotid artery: Retropharyngeal course of the left extracranial internal carotid artery. Left external carotid artery: No occlusion or stenosis of the origin. Right vertebral artery: No stenosis. No dissection or occlusion. Left vertebral artery: No stenosis. No dissection or occlusion. Aorta: Two-vessel arch. Soft tissues: Normal. No significant soft tissue swelling. Bones/joints: Diffuse degenerative change of the visualized osseous structures, moderate to severe. Bilateral moderate foraminal narrowing at C4 through C7. Anterolisthesis of C3 on C4, grade 1. Grade 1 anterolisthesis of C2 on C3. Other findings: Tortuous bilateral internal carotid arteries. IMPRESSION: 1. No acute vascular findings. 2. Degenerative change of the visualized osseous structures with details above. 3. Additional nonacute findings as above. REFERENCES: NASCET CRITERIA. The degree of stenosis in the cervical segment of the internal carotid artery is based on NASCET criteria. Normal is no stenosis. Mild is less than 50% stenosis. Moderate is 50-69% stenosis. Severe is 70% to 99% stenosis. Total occlusion is no detectable patent lumen.
[2023-12-19] MEDS: KETOROLAC 30MG/ML VIAL 30 MG IV (04:49)
[2023-12-19] MEDS: ACETAMINOPHEN 500MG TAB 1000 MG PO (04:49)
[2023-12-19] MEDS: PROCHLORPERAZINE 10MG/2ML VIAL 10 MG IV (04:49)
[2023-12-19] MEDS: diphenhydrAMINE 50MG/ML VIAL 25 MG IV (04:49)
[2023-12-19] MEDS: 0.9 % SODIUM CHLORIDE 1000ML 1,000 ML 999 ML IV (04:49)
[2023-12-19 04:51] LABS: Basophils # 0.1 K/mm3 (0-0.2); Basophils % 1.7 % (0.1-2.0); Eosinophils # 0.3 K/mm3 (0.0-0.4); Eosinophils % 4.4 % (0.1-12.0); Hematocrit 49.5 % (37.0-47.0); Hemoglobin 16.2 g/dL (12.2-16.2); Lymphocytes # 2.4 K/mm3 (0.7-4.5); Mean Corpuscular HGB Conc 32.6 g/dL (31.8-35.4); Mean Corpuscular Hemoglobin 32.2 pg (27.0-31.2); Mean Corpuscular Volume 98.7 fl (81-99); Mean Platelet Volume 7.5 fl (7.4-10.4); Monocytes # 0.4 K/mm3 (0.1-1.0); Monocytes % 5.1 % (1.7-9.3); Neutrophils # 4.2 K/mm3 (1.8-7.8); Neutrophils % 56.8 % (37.0-80.0); Platelet Count 263 K/mm3 (142-424); Red Blood Count 5.02 M/mm3 (4.20-5.40); Red Cell Distribution Width 13.6 % (11.5-17.5); White Blood Count 7.5 K/mm3 (4.8-10.8)
[2023-12-19 04:52] LABS: Chloride 105 mmol/L (98-107); Potassium 4.1 mmoL/L (3.5-5.1); Sodium 140 mmol/L (136-145)
[2023-12-19 04:54] LABS: Alanine Aminotransferase 29 U/L (12-78); Aspartate Amino Transferase 40 U/L (14-36); Blood Urea Nitrogen 29 mg/dl (7-17); Creatinine Clearance Estimated 68 mL/min (50-200); Estimated Glomerular Filt Rate 63 ml/min (>60); GFR (African American) 76 ML/MIN (>60)
[2023-12-19 04:55] LABS: Albumin Level 4.6 g/dl (3.5-5.0); Albumin/Globulin Ratio 1.4 (1.1-1.8); Alkaline Phosphatase 58 U/L (38-126); Anion Gap 14.1 mEq/L (5-15); Bilirubin,Total 0.5 mg/dl (0.2-1.3); Calcium 9.8 mg/dl (8.4-10.2); Carbon Dioxide 25 mmol/L (22.0-30.0); Globulin 3.4 g/dL (1.3-3.2); Glucose 112 mg/dl (74-100)
[2023-12-19] MEDS: IOPAMIDOL-370 (76%);100ML BOTTLE 100 ML IV ×2 (05:19→06:16)
[2023-12-19] MEDS: 0.9 % SODIUM CHLORIDE 50 ML VIAL IV (05:19)
--- NOTE | 2023-12-19 05:43 | CT_ITS ---
PROCEDURE INFORMATION: Exam: CTA Head With Contrast, Venography Exam date and time: 12/19/2023 6:00 AM Age: 63 years old Clinical indication: Pain; Headache; Additional info: Severe headache TECHNIQUE: Imaging protocol: Computed tomography angiography of the head with contrast. Exam focused on the veins. 3D rendering (Not supervised by radiologist): MIP and/or 3D reconstructed images were created by the technologist. Radiation optimization: All CT scans at this facility use at least one of these dose optimization techniques: automated exposure control; mA and/or kV adjustment per patient size (includes targeted exams where dose is matched to clinical indication); or iterative reconstruction. Contrast material: ISOVUE 370; Contrast volume: 100 ml; Contrast route: INTRAVENOUS (IV); COMPARISON: CT ANGIO HEAD 12/19/2023 5:09 AM FINDINGS: Superior sagittal sinus: Patent. Straight sinus: Patent. Transverse sinuses: Patent. Sigmoid sinuses: Patent. Internal jugular veins: Limited visualized internal jugular veins are patent. Brain: No definite mass, mass effect, or midline shift. Cerebral ventricles: No ventriculomegaly. Soft tissues: Unremarkable. IMPRESSION: No venous thrombosis.
[2023-12-19] MEDS: MAGNESIUM SULFATE IN WATER 2 GM/50 ML PIGGYBACK IV (06:05)
[2023-12-19] MEDS: SODIUM CHLORIDE 0.9% 10ML SYR (RAD ONLY) 10 ML IV (06:16)
--- NOTE | 2023-12-19 06:46 | PC.NURSE ---
rounded on pt at this time. pt sleeping in bed. Mag infusing @ 50 ml/hr
--- NOTE | 2023-12-19 07:10 | PC.NURSE ---
ambulated pt down the nino and back. pt tolerated well. pt states she feels much better
[2023-12-19] MEDS: DEXAMETHASONE 4MG TABLET 10 MG PO (07:12)
== END 2023-12-19 07:18 | disposition home or self-care (01) ==
PROVIDERS: Emergency Provider Emergency Medicine; PCP Family Medicine
DX: G43.109 Migraine with aura, not intractable, without status migrainosus (principal); R42 Dizziness and giddiness
CPT/HCPCS: 70450; 70496; 70498; 80053; 85025; 96361; 96365; 96375; 99285; J3475; Q9967

== ENCOUNTER 2024-01-16 12:20 | Outpatient (CLI) | payer MEDICARE, SELFPAY ==
--- NOTE | 2024-01-16 12:32 | XR_ITS ---
FINAL REPORT CLINICAL HISTORY: Right hip pain COMPARISON: None FINDINGS: RIGHT HIP Two views of the right hip with an AP view of the pelvis demonstrate no acute fracture or dislocation. There is mild degenerative change. The visualized bony structures are well aligned. No soft tissue abnormality is seen. IMPRESSION: Mild degenerative change without acute bony abnormality. Reviewed, Interpreted and Dictated by Kenrick Ornelas III, MD Transcribed by Yudith Rachel Authenticated and [facility]
--- NOTE | 2024-01-16 12:32 | XR_ITS ---
FINAL REPORT CLINICAL HISTORY: Lower back pain COMPARISON: None FINDINGS: 3 views of the lumbar spine were obtained. There is no evidence of fracture. There is no malalignment. There is mild and moderate degenerative change. Facet arthropathy is noted in the mid and lower lumbar spine. No paraspinous soft tissue abnormalities identified. IMPRESSION: Degenerative changes without acute bony abnormality. Reviewed, Interpreted and Dictated by Kenrick Ornelas III, MD Transcribed by Yudith Rachel Authenticated and [facility]
[2024-01-16 18:08] LABS: Alanine Aminotransferase 24 U/L (12-78); Albumin/Globulin Ratio 1.6 (1.1-1.8); Alkaline Phosphatase 62 U/L (38-126); Anion Gap 19.1 mEq/L (5-15); Aspartate Amino Transferase 41 U/L (14-36); Blood Urea Nitrogen 21 mg/dl (7-17); Calcium 9.7 mg/dl (8.4-10.2); Carbon Dioxide 24 mmol/L (22.0-30.0); Chloride 102 mmol/L (98-107); Chol/HDL Ratio 2.4 (1-3.5); Cholesterol 225 mg/dl (140-200); Estimated Glomerular Filt Rate 72 ml/min (>60); GFR (African American) 87 ML/MIN (>60); Globulin 3.1 g/dL (1.3-3.2); Glucose 64 mg/dl (74-100); HDL Cholesterol 93 mg/dl (40-60); Potassium 5.1 mmoL/L (3.5-5.1); Sodium 140 mmol/L (136-145); Total Protein,Serum 8.1 g/dl (6.3-8.2); Triglycerides 225 mg/dl (30-150); VLDL Cholesterol 45 mg/dL (0-40)
[2024-01-16 18:19] LABS: Direct LDL Cholesterol 82.93 mg/dL (100-129)
[2024-01-17 10:24] LABS: HIV (1&2) Antibody Rapid NON REACTIVE
[2024-01-19 09:31] LABS: HCV Ab Non Reactive (Non Reactive)
== END 2024-01-16 23:59 | disposition home or self-care (01) ==
PROVIDERS: PCP Family Medicine; Visit Provider Nurse Practitioner Family
DX: M54.50 Low back pain, unspecified (principal); M79.604 Pain in right leg; M25.551 Pain in right hip; M25.50 Pain in unspecified joint; E78.5 Hyperlipidemia, unspecified
CPT/HCPCS: 72100; 73502; 80053; 80061

== ENCOUNTER 2024-06-21 09:30 | Emergency (ER) | payer MEDICARE, SELFPAY ==
[2024-06-21 09:45] VITALS: BP 140/92; PULSE 70; RESP 19; TEMP 36.8; O2SAT 97; BMI 30.2
--- NOTE | 2024-06-21 10:12 | EXP.UTC ---
Discharge Plan Disposition Patient Disposition: Home, Self-Care Condition: Good Prescriptions Prescriptions: New olopatadine [Pataday Once Daily Relief] 0.2 % drops 1 drp ophthalmic (eye) DAILY Qty: 2.5 0RF guaifenesin 400 mg tablet 400 mg PO Q4H PRN (Reason: cough) Qty: 60 0RF No Action cholecalciferol (vitamin D3) [Vitamin D3] 25 mcg (1,000 unit) capsule 25 mcg PO DAILY rizatriptan 10 mg tablet,disintegrating See Rx Instructions PO .COMPLEX Qty: 10 5RF Rx Instructions: take 1 tab at onset of headache; if no relief may repeat 1 tab after at least 2 hrs; max = 2 tabs/24 hr or 4 tab per week pantoprazole 40 mg tablet,delayed release (DR/EC) 40 mg PO DAILY 90 Days Qty: 90 0RF propranolol 80 mg capsule,extended release 24 hr 80 mg PO DAILY 90 Days Qty: 90 0RF duloxetine [Cymbalta] 20 mg capsule,delayed release(DR/EC) 20 mg PO BID Qty: 60 2RF levocetirizine 5 mg tablet See Rx Instructions .ROUTE .COMPLEX Qty: 30 3RF Dose Instruction: Take 1 tablet by mouth once daily Rx Instructions: Take 1 tablet by mouth once daily hydrochlorothiazide 25 mg tablet See Rx Instructions .ROUTE .COMPLEX Qty: 90 0RF Dose Instruction: Take 1 tablet by mouth once daily Rx Instructions: Take 1 tablet by mouth once daily atorvastatin 40 mg tablet 40 mg PO HS 90 Days Qty: 90 0RF buspirone 10 mg tablet 10 mg PO BID PRN (Reason: anxiety) Qty: 120 0RF Referrals Follow up/Referrals: Aron Lou MD [Primary Care Provider] - See instructions Activity Restrictions/Add. Instructions Additional Instructions/Restrictions: Take medication as prescribed. Increase fluids and rest. If symptoms persist or worsen, return to clinic/PCP. Clinical Impressions Clinical Impression: Allergic conjunctivitis and rhinitis, Cough in adult Stand Alone Forms Stand Alone Forms: Work/School Release Instructions Patient Instructions: DI for Viral Upper Respiratory Infection -- Adult, DI for Eye Allergic Reaction, How to Put in Eye Drops Print Language Print Language: Bel[place]ian Discharge ED Provider: Nikki Thompson [facility] General Stated complaint: right eye pain Mode of Arrival: Ambulatory Source of Information: Patient Limitations: No Limitations Time Seen by Provider: 06/21/24 10:12 Description of Symptoms (Recalled from Triage Doc. by RN): PATIENT C/O SWELLING AND DRAINAGE TO BILATERAL EYES AND HEADACHE SINCE SUNDAY HEENT Symptoms (Recalled from RN notes): Yes Resp Symptoms (Recalled from RN notes): No Skin Symptoms (Recalled from RN notes): No MS Symptoms (Recalled from RN notes): No Functional Status (Recalled from RN notes): WNL History of Present Illness Provider Complaint: Pt reports that she has had eye irritation with clear mucous drainage and eyelid swelling since yesterday. She reports that she has also had a runny nose and a cough. Related Data Home Medications ?Medication ?Instructions ?Recorded ?Confirmed cholecalciferol (vitamin D3) 25 25 mcg PO DAILY 09/14/22 06/21/24 mcg (1,000 unit) capsule (Vitamin D3) Previous Rx's ?Medication ?Instructions ?Recorded pantoprazole 40 mg tablet,delayed 40 mg PO DAILY GERD 90 days #90 04/24/23 release tabs rizatriptan 10 mg disintegrating See Rx Instructions PO .COMPLEX 05/31/23 tablet #10 tabs propranolol 80 mg capsule,24 80 mg PO DAILY 90 days #90 caps 07/19/23 hr,extended release duloxetine 20 mg capsule,delayed 20 mg PO BID #60 caps 04/10/24 release (Cymbalta) hydrochlorothiazide 25 mg tablet See Rx Instructions .Route 05/08/24 .COMPLEX #90 tabs levocetirizine 5 mg tablet See Rx Instructions .Route 05/08/24 .COMPLEX #30 tabs atorvastatin 40 mg tablet 40 mg PO HS 90 days #90 tabs 05/21/24 buspirone 10 mg tablet 10 mg PO BID PRN anxiety #120 tabs 05/21/24 guaifenesin 400 mg tablet 400 mg PO Q4H PRN cough #60 tabs 06/21/24 olopatadine 0.2 % eye drops 1 drp ophthalmic (eye) DAILY #2.5 06/21/24 (Pataday Once Daily Relief) mL Allergies Allergy/AdvReac Type Severity Reaction Status Date / Time Sulfa (Sulfonamide Allergy Intermediate I-ITCHING Verified 02/18/24 11:09 Antibiotics) (SULFA (SULFONAMIDE ANTIBIOTICS)) levofloxacin (From LEVAQUIN) Allergy Unknown Verified 02/18/24 11:09 Worker's Comp Is this a Worker's Comp case?: No [facility] Disclaimer: The information contained in this section may have been updated after the patient was seen, as this information can be updated by other users. Medical History Chronic eustachian tube dysfunction Otitis externa of left ear Vertigo Foreign body of ear, left Tinnitus Fatigue SOLA (obstructive sleep apnea) Skin cancer Kidney stones Diverticulitis Degenerative disc disease Osteoarthritis Fibromyalgia Migraines Surgical History H/O lithotripsy H/O thumb surgery History of appendectomy Family History Sister Cancer Diabetes Hypertension Stroke Father Coronary artery disease Grandmother Diabetes Brother Hypertension Social History Smoking Status: Never smoker second hand exposure: No alcohol intake: never substance use type: denies use current occupational status: employed Travel in the last 8 weeks: None household members: none housing: house current occupation: [employer] current occupational exposures/hazards: No caffeine: Yes ROS Obtained: Yes All systems reviewed & no additional complaints except as documented Constitutional Constitutional: Reports system reviewed and no additional complaints, except as documented and Reports headache(s) Eyes Eyes: Reports system reviewed and no additional complaints, except as documented, Reports eye discharge, Reports irritation, Reports itchy eyes and Reports eye pain ENT Ears, Nose, Mouth, and Throat: Reports system reviewed and no additional complaints, except as documented, Reports headache(s), Reports nasal discharge and Reports sore throat Cardiovascular Cardiovascular: Reports system reviewed and no additional complaints, except as documented Respiratory Respiratory: Reports system reviewed and no additional complaints, except as documented and Reports non-productive cough Gastrointestinal Gastrointestingal: Reports system reviewed and no additional complaints, except as documented Genitourinary Female Genitourinary: Reports system reviewed and no additional complaints, except as documented Musculoskeletal Musculoskeletal: Reports system reviewed and no additional complaints, except as documented Integumentary/Breasts Skin/Breast: Reports system reviewed and no additional complaints, except as documented Neurologic Neurologic: Reports system reviewed and no additional complaints, except as documented and Reports headache(s) Endocrine Endocrine: Reports system reviewed and no additional complaints, except as documented Hematologic/Lymphatic Henatologic/Lymphatic: Reports system reviewed and no additional complaints, except as documented Allergic/Immunologic Allergic/Immunologic: Reports system reviewed and no additional complaints, except as documented, Reports itchy eyes and Reports seasonal rhinorrhea Physical Exam General General appearance: alert and in no apparent distress Head Head exam: atraumatic and normocephalic Eye Eye exam: Present PERRL, EOMI, conjunctival redness and periorbital swelling Expanded ENT Exam External ear exam: Present normal external inspection Nasal speculum exam: Bilateral: other (clear drainage) Mouth exam: Present normal external inspection Teeth exam: Present normal inspection Throat exam: Present normal inspection Neck Neck exam: Present normal inspection; Absent lymphadenopathy Chest Chest inspection: Present normal inspection and symmetric chest wall rise Respiratory Respiratory exam: Present normal lung sounds bilaterally Cardiovascular Cardiovascular exam: Present regular rate and normal rhythm Abdominal Exam Abdominal exam: Present soft Extremities Exam Extremities exam: Present normal inspection Back Exam Back exam: Present normal inspection Neurological Exam Neurological exam: Present alert and oriented X3 Psychiatric Psychiatric exam: Present normal affect and normal mood Skin Skin exam: Present warm, dry and intact Lymphatic Lymphatic Findings: no adenopathy Medical Decision Making Medical Records Screening: Per USPSTF and CDC recommendations, given the prevalence of disease in our region, it is our hospital?s policy to screen for HIV and viral Hepatitis for all patients aged 18 and over and those with ongoing risk factors. Amadeo Inquiry Pt receiving controlled substance: No Amadeo was queried for this patient: No Vital Signs: 06/21/24 09:45 Temperature 98.3 F Temperature Source Oral Pulse Rate [Left Brachial] 70 Respiratory Rate 19 Blood Pressure [Left Arm] 140/92 H Blood Pressure Mean [Left Arm] 108 Blood Pressure Source [Left Arm] Automatic Cuff Blood Pressure Position [Left Arm] Sitting 02 Sat by Pulse Oximetry 97 Oxygen Delivery Method Room Air
[2024-06-21 10:29] VITALS: BP 140/92; PULSE 70; RESP 19; TEMP 36.8; O2SAT 97
== END 2024-06-21 10:32 | disposition home or self-care (01) ==
PROVIDERS: Emergency Provider Nurse Practitioner Family; PCP Family Medicine
DX: H10.10 Acute atopic conjunctivitis, unspecified eye (principal); H57.13 Ocular pain, bilateral; R51.9 Headache, unspecified; R09.89 Other specified symptoms and signs involving the circulatory and respiratory systems; J02.9 Acute pharyngitis, unspecified; R05.9 Cough, unspecified
CPT/HCPCS: 99212; G0381

== ENCOUNTER 2024-11-17 15:37 | Outpatient (CLI) | payer MEDICARE, SELFPAY ==
--- OUTSIDE RECORDS SUMMARY | 2024-11-17 15:42 | XMS_ITS | Data Portability ---
Author Organization [facility] [place] [facility] Address [address] [facility] [address] [place] [address] Care Team Providers Care Animal Care Worker Name Role Phone EDY PIÑA Primary Care Provider [phone] GOPAL HERNANDEZ Emotional Disabilities Teacher Assessment Encounter Date Assessment Date Assessment LastModified by Organization Details LastModified Time 11/16/2022 11/16/2022 Patient's left trigger thumb symptoms remain resolved. Plan to monitor and treat as needed should symptoms recur over time. She can continue to use the left hand and thumb as tolerated without restrictions. In regards to her more diffuse swelling, this is not related to the surgery and she will discuss with rheumatology at her upcoming appointment. In regards to her right thumb, she now has exacerbation/recu rrence of her known severe CMC arthritis symptoms. She is not ready to proceed with surgery as of yet. She has requested a repeat corticosteroid injection, which was provided in the office today without complication. Patient will follow up in clinic on an as-needed basis should additional questions or concerns arise. [email or web address] Not available 11/16/2022 17:13:04 11/20/2022 11/20/2022 A 62 year old female she only has one kidney; avoid NSAIDS [email or web address] Not available 11/20/2022 13:24:00 12/15/2022 12/15/2022 Previous x-rays of the left wrist and hand were reviewed with specific attention paid to the thumb. I do not appreciate any evidence of a sesamoid bone or other bony pathology along the volar aspect of the left thumb IP joint region. This appears to represent some type of soft tissue mass, of uncertain etiology. As symptoms have become progressively worse, plan to obtain an MRI for further diagnostic assessment and to help guide additional treatment. She also may be developing some early recurrent left trigger thumb symptoms as well. Follow-up upon completion of the MRI to discuss results and make any additional treatment plans as needed moving forward. [email or web address] Not available 12/15/2022 10:32:05 01/19/2023 01/19/2023 MRI of the left thumb reviewed, independently assessed, and discussed with the patient in the office today. Discussed that this study does not reveal definitive soft tissue mass along the volar IP joint. Discussed continued monitoring, corticosteroid injection, or surgical exploration. Patient's preference was to continue to monitor for now. Her right thumb symptoms also remained stable and we will monitor as well. She will follow-up in as-needed basis if symptoms worsen or persist over time. [email or web address] Not available 01/29/2023 14:54:09 11/19/2023 11/19/2023 A 63 year old female she only has one kidney; avoid NSAIDS [email or web address] Not available 11/19/2023 13:00:45 Plan of Treatment Reminders Order Date Submit Date Provider Last Modified By Organization Details Last Modified Time Details Appointments None recorded. Lab ESR (erythrocyt e sedimentati on rate), blood 2022 023 [facility], [address] [place] [address], [phone], 3 15:49:52 C reactive protein, QN, serum or plasma 2022 023 [facility], [address] [place] [address], [phone], 3 15:02:20 Referral None recorded. Procedures None recorded. Surgeries None recorded. Imaging MRI, finger(s), w/wo contrast - eval left volar IP thumb mass 2022 023 [facility], [address] [facility] , [place], [address], 3 14:57:51 Medication Orders None recorded. Patient TargetsNo targets recorded. Patient InstructionsNo instructions recorded. Reason for Referral None Reported. Results Created Date Observation Date Name Description Value Unit Range Abnormal Flag Note LastModifiedBy Organization Detail LastModifiedTime 11/21/1911/20/2022 C REACT GINNY PROTE IN C reactive protein 0.25 mg/dL 0.00-0 .49 normal Not Available [facility] [address] [place] [address], [address], 11/20/2022 15:02:20 11/21/19 23 11/20/2022 ESR, AUTOM ATED ESR, automated 15 mm 0-29 normal Not Available [facility] [address] [place], [address], 11/20/2022 15:49:52 01/06/2001/05/2023 MRI, finge r(s), w/wo contr ast [facility] [address] [place] [address] [place] t Name: CHRIS Esquivel t : 1959 Patireymundo t 31 Orderi ng Provid er: JELLY TURNER EXAM DATE: 2022 EXAM: MR LT FINGER W/WO CONTRA ST HISTOR Y: 62 year old female with a mass at the tip of the left thumb. The patien t has a prior first carpom etacar pal interp ositio n arthro plasty and abduct or pollic is longus tendon transf er suspen jonathan. COMPAR JOSÉ LUIS: Radiog raph dated 07/21/19 23 Diazep am 5 mg p.o. was given for sedati on withou t compli cation . FINDIN GS: The patien t is status post first carpom etacar pal arthro plasty . There are modera te to severe residu al degene rative change s at the first metaca rpal base. There is mild subcor tical marrow edema at the first metaca rpal base. There are mild degene rative change s at the distal pole of the scapho id with adjace nt joint fluid. The bones of the thumb are normal in alignm ent. There is no fractu re or pathol ogic intrao sseous lesion . There is no conflu ent marrow edema or perios teal edema. There are mild degene rative change s in the interp halang eal joint of the thumb and the first metaca rpopha langea l joint. The collat eral ligame nts at the interp halang eal joint of the thumb and the first metaca rpopha langea l joint appear intact . There is thicke wendi of the abduct or pollic is longus tendon . The insert ion of this tendon is not clearl y seen, but no defini te tear is identi fied. The remain ing tendon s of the thumb appear normal . The muscle s of the thenar eminen ce are normal in appear ance. After intrav enous admini strati on of 7.5cc [address] [facility] ([facility] [address]0 1), there is mild enhanc ement adjace nt to the flexor pollic is longus tendon . There is enhanc ement in the first carpom etacar pal arthro plasty and probab le enhanc ement at the attach ment of the abduct or pollic is longus tendon . No enhanc ing soft tissue mass is identi fied. IMPRES JONATHAN: 1. No soft tissue mass is identi fied in the left thumb. 2. There is modera te tendin osis of the abduct or pollic is longus longus tendon . There is limite d visual izatio n of the attach ment of this tendon , but no tear is conclu sively seen. 3. There is a prior first carpom etacar pal arthro plasty . 4. There are mild degene rative change s in the thumb. Interp reted By: Robert garcia MD Electr onical ly Signed By: Robert garcia MD on 023 2:52 PM bdevers [facility] [address] [place], [address], 01/09/2023 10:00:04 Result Notes None recorded. Problems No Known Problems Procedures Surgical History Date Name Laterality Status Provider Name and Address Organization Details Recorded Time 11/17/19 23 Injection Joint/Bursa, Interm completed RAYNA TURNER MD [address] [place] [address], [phone], [facility] 11/16/2022 17:12:03 09/01/19 23 Injection Trigger Finger Ortho completed RAYNA TURNER MD [address] [place], [address], [facility] 09/01/2022 11:22:38 06/29/20 22 Orthotic, HFO, Static Custom completed LAUREN TENA JR, OTR/L, CHT [address] [place], [address], [facility] 06/29/2022 13:08:32 06/14/20 22 Arthoplasty, thumb [facility] [place] completed RAYNA TURNER MD [address] [place], [address], [facility] 06/14/2022 11:04:53 06/14/20 22 arthroplasty of joint of the thumb completed Yasmeen Young [facility] 11/20/2022 13:06:12 03/23/20 22 Injection Joint/Bursa, Interm completed TREMAINE CARR PA-C [address] [place], [address], [facility] 03/31/2022 10:50:41 Imaging Results Imaging Date Name Status LastModified by Organiz ation Details LastModified Time 01/05/2023 MRI, finger(s), w/wo contrast completed bdevers [facility] [address] [place], [address], 01/09/2023 10:00:04 Procedure Notes None recorded. Medical Equipment None Reported. Allergies Allergen ID Allergen Name Allergen Category Reaction Reaction Severity Criticality Documentation Date Start Date Code Code System Note Provider Name and Address Organization Details Recorded Time 623526 Substance with sulfonami de structure and antibacte rial mechanism of action (substanc e) medicatio n Not available Not available Not available 03/14/2022 85622 8003 SNOMED [facility] 10:12:26 261289 Levaquin medicatio n Not available Not available Not available 03/14/2022 11779 2 RxNorm [facility] MICAELA mcclellan [facility] 2 10:12:44 Medications Name Sig Start Date Stop Date Status Note LastModified by Organization Details LastModified Time propranolol 80 mg tablet Take 1 tablet every day by oral route. active Not Available Not Available No t Available Neurontin 300 mg capsule Take 1 capsule every night before bed 11/20 completed Not Available Not Available Not Available atorvastati n 10 mg tablet Take 1 tablet every day by oral route. active Not Available Not Available No t Available prednisone 10 mg tablets in a dose pack Take 1 dose pk by oral route as directed. 12/15 completed Not Available Not Available Not Available meloxicam 7.5 mg tablet TAKE 1 TAB PO QD WITH FOOD REGARDLES S OF PAIL LEVEL FOR 1 WEEK, THEN TAKE ONLY PRN FOR PAIN RELIEF THEREAFTE R 12/15 completed Not Available Not Available Not Available pantoprazol e 40 mg tablet,darya yed release Take 1 tablet every day by oral route. active Not Available Not Available No t Available Neurontin 100 mg capsule TAKE 1 CAPSULE PO QHS FOR 1 WEEK 12/15 completed Not Available Not Available Not Available buspirone 10 mg tablet Take 1 tablet twice a day by oral route. active Not Available Not Available No t Available [place] 5 mg-325 mg tablet TAKE 1 TAB PO Q 4-6 HRS PRN FOR SEVERE POST SURGICAL PAIN 11/20 completed Not Available Not Available Not Available diazepam 5 mg tablet Take 2 tablets as needed by oral route. 11/18 completed [facility]: 0904- 5880- 61 Not Available Not Available Not Available aspirin 81mg 11/18 completed Not Available Not Available Not Available naproxen 500mg 2x daily 12/15 completed Not Available Not Available Not Available hydrochloro thiazide 12.5mg daily 10/05 completed Not Available Not Available Not Available metoprolol succinate 25mg 11/18 completed Not Available Not Available Not Available Vitamin D3 125mcg daily active Not Available Not Available No t Available levocetiriz ine 5 mg tablet Take 1 tablet every day by oral route. active Not Available Not Available No t Available Nurtec ODT 75 mg disintegrat ing tablet Take as needed by oral route. 12/15 completed Not Available Not Available Not Available omega-3 417 mg-dha 120 mg-epa-276 mg-fish oil 600 mg-turmeric capsule Take every day by oral route. 11/18 completed Not Available Not Available Not Available Vitals Date Recorded Body height Body mass index (BMI) Body weight Provider Name and Address Organization Details Last Updated DateTime 11/16/2022 157.48 cm 29.3 kg/m2 27918.78 g [facility] 11/16/2022 14:09:46 Date Recorded Body height Body mass index (BMI) Body weight Heart rate Oxygen saturation Oxygen saturation in Arterial blood by Pulse oximetry Systolic blood pressure Diastolic blood pressure Provider Name and Address Organization Details Last Updated DateTime 3 157.48 cm 32.4 kg/m2 46084.2 5 g 68 /min 95 % 95 % 140 mm[Hg] 82 mm[Hg] Yasmeen Young [facility] 3 13:07:57 Date Recorded Body height Body mass index (BMI) Body weight Pain severity - 0-10 verbal numeric rating [Score] - Reported Provider Name and Address Organization Details Last Updated DateTime 12/15/2022 157.48 cm 32.4 kg/m2 91508.85 g 6 [facility] 12/15/2022 10:11:25 Date Recorded Body height Pain severity - 0-10 verbal numeric rating [Score] - Reported Provider Name and Address Organization Details Last Updated DateTime 01/19/2023 157.48 cm 2 [facility] 01/19/2023 11:19:30 Date Recorded Body height Body mass index (BMI) Body weight Respiratory rate Heart rate Oxygen saturation Oxygen saturation in Arterial blood by Pulse oximetry Systolic blood pressure Diastolic blood pressure Provider Name and Address Organization Details Last Updated DateTime 4 157.48 cm 30.9 kg/m2 65672.8 1 g 16 /min 71 /min 96 % 96 % 132 mm[Hg] 80 mm[Hg] Mandy Church [facility] 13:15:50 Social History Question Answer Notes LastModified by Organizat ion Details LastModified Time Tobacco Smoking Status [facility] 03/14/2022 10:16:58 What Is Your Level Of Alcohol Consumption? None Information not available 11/20/2022 Do You Wear A Helmet When Biking? Yes Information not available 03/23/2022 What Was The Date Of Your Most Recent Tobacco Screening? 11/19/2023 [email or web address] Information not available 11/19/2023 Do You Use Your Seat Belt Or Car Seat Routinely? Yes Information not available 03/23/2022 Do You Use Any Illicit Or Recreational Drugs? No Information not available 03/14/2022 Has Tobacco Cessation Counseling Been Provided? No Information not available 03/14/2022 Have You Recently Traveled Abroad? No Information not available 11/20/2022 Do You Or Have You Ever Used Any Other Forms Of Tobacco Or Nicotine? No Information not available 03/14/2022 Sex: Female Functional Status None recorded. Mental Status None recorded. Family History Nothing Reported. Medical History Condition Response Diabetes N Bleeding Disorder N Arthritis Y Heart Conditions N Kidney Stones N Emphysema N Acid Reflux (GERD) Y Asthma N COPD N Liver Disease N Heart Disease N Heart Attack (RI) N Hypertension Y Gynecological HistoryNo gynecological history recorded. Obstetrics History GPAL:G 0 P 0 0 0 0 Past Encounters Encounter ID Performer Location Encounter Start Date Encounter Closed Date Diagnosis/Indication Diagnosis SNOMED-CT Code Diagnosis ICD10 Code Diagnosis Note [id number] JOSE TRIPLETT MD [facility] [address] [place] [address] 03/14/2022 09:59:06 03/14/2022 12:03:15 Pain of multiple joints 05464939 M25.50 Osteoarthr osis of the carpometacarpal joint of the thumb 42950802 M18.9 Myofascial pain 50917654 9 M79.10 [id number] TREMAINE CARR PA-C [facility] [address] [address] 03/23/2022 10:39:04 03/23/2022 11:38:42 Osteoarthrosis of the carpometacarpal joint of the thumb 12621542 M18.0 Severe osteoarthr itis of bilateral thumb CMC joints - Bilateral CSIs: 03/23/22 [id number] RAYNA TURNER MD [facility] [address] [address] 05/09/2022 15:32:07 05/10/2022 07:37:10 Osteoarthrosis of the carpometacarpal joint of the thumb 36558611 M18.11 M18.12 - Left severe Eaton stage III CMC joint arthritis (CSI: 03/23/22)- Right severe Eaton stage III CMC joint arthritis (CSI: 03/23/22) [id number] JOSE TRIPLETT MD [facility] [address] [place] [address] 05/16/2022 10:21:52 05/16/2022 10:55:54 Osteoarthritis of joint of hand 62385137 M19.049 Osteoarthr osis of the carpometacarpal joint of the thumb 34048669 M18.9 Myofascial pain 34710565 9 M79.10 Degenerati on of cervical intervertebral disc 78205742 M50.30 Bilateral osteoarthritis of sacroiliac joints 6493308945 0550075 M19.90 [id number] RAYNA TURNER MD SURGERY SCHEDULE [address] [place] [address] 06/14/2022 06:50:09 06/14/2022 06:50:33 [id number] TREMAINE CARR PA-C [facility] [address] [address] 06/29/2022 09:58:30 06/29/2022 13:55:18 Postoperative care 961208216 Z48.89 s/p Left thumb CMC interposit ional arthroplas ty with APL tendon transfer suspension ; Right thumb carpometac arpal joint corticoste roid injection (DOS: 06/14/22) Osteoarthr osis of the carpometacarpal joint of the thumb 64963832 M18.11 M18.12 - Right severe Eaton stage III CMC joint arthritis (CSI: 06/14/22; 03/23/22) s/p Left thumb CMC interposit ional arthroplas ty with APL tendon transfer suspension ; Right thumb carpometac arpal joint corticoste roid injection (DOS: 06/14/22) [id number] LAUREN TENA JR, OTR/L, CHT PHYSICAL THERAPY / HAND THERAPY [facility] [address] [address] 06/29/2022 10:56:23 06/29/2022 15:45:20 Osteoarthrosis of the carpometacarpal joint of the thumb 23734126 M18.9 [id number] RAYNA TURNER MD ORTHOPEDI [address] [place] [address] 07/21/2022 09:25:24 07/21/2022 10:47:03 Postoperative care 424983454 Z48.89 6 weeks s/p Left thumb CMC interposit ional arthroplas ty with APL tendon transfer suspension (DOS: 06/14/22) Osteoarthr osis of the carpometacarpal joint of the thumb 92488214 M18.11 M18.12 - Right severe Eaton stage III CMC joint arthritis (CSI: 06/14/22; 03/23/22) Previously s/p Left thumb CMC interposit ional arthroplas ty with APL tendon transfer suspension (DOS: 06/14/22) [id number] RAYNA TURNER MD ORTHOPEDI [address] [address] 09/01/2022 09:30:14 09/01/2022 11:46:12 Postoperative care 574012020 Z48.89 12 weeks s/p Left thumb CMC interposit ional arthroplas ty with APL tendon transfer suspension (DOS: 06/14/22) Osteoarthr osis of the carpometacarpal joint of the thumb 05740687 M18.11 M18.12 - Right severe Eaton stage III CMC joint arthritis (CSI: 06/14/22; 03/23/22) Previously s/p Left thumb CMC interposit ional arthroplas ty with APL tendon transfer suspension (DOS: 06/14/22) Trigger th umb of left hand 4245605552 12444 M65.312 Left trigger thumb (CSI: 09/01/2022) [id number] RAYNA TURNER MD [facility] [address] [address] 10/05/2022 14:12:39 10/05/2022 15:49:15 Postoperative care 756728414 Z48.89 4 months s/p Left thumb CMC interposit ional arthroplas ty with APL tendon transfer suspension (DOS: 06/14/22) Osteoarthr osis of the carpometacarpal joint of the thumb 81163259 M18.11 M18.12 - Right severe Eaton stage III CMC joint arthritis (CSI: 06/14/22; 03/23/22) Previously s/p Left thumb CMC interposit ional arthroplas ty with APL tendon transfer suspension (DOS: 06/14/22) Trigger th umb of left hand 1524522498 33475 M65.312 Left trigger thumb (CSI: 09/01/2022) - currently resolved [id number] RAYNA TURNER MD [facility] [address] [address] 11/16/2022 13:53:25 11/20/2022 12:15:15 Postoperative care 989110420 Z48.89 5 months s/p Left thumb CMC interposit ional arthroplas ty with APL tendon transfer suspension (DOS: 06/14/22) Osteoarthr osis of the carpometacarpal joint of the thumb 55821204 M18.11 M18.12 - Right severe Eaton stage III CMC joint arthritis (CSI: 11/16/2022; 06/14/22; 03/23/22) Previously s/p Left thumb CMC interposit ional arthroplas ty with APL tendon transfer suspension (DOS: 06/14/22) Trigger th umb of left hand 4067338647 70920 M65.312 Left trigger thumb (CSI: 09/01/2022) - currently resolved [id number] WANG ACKERMAN APRN [facility] [address] [place] [address] 11/20/2022 12:51:36 11/21/2022 04:37:20 Osteoarthritis of joint of hand 84057846 M19.049 Suggest using Voltaren gel over-the-c ounter. She should avoid NSAIDs due to having one kidney. Take Tylenol arthritis twice daily as needed. Paraffin wax pot at night, copper arthritis gloves during the day. Osteoarthr osis of the carpometacarpal joint of the thumb 49649795 M18.[address] 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 Degenerati on of cervical intervertebral disc 40971844 M50.30 she has tried physical therapy with improvemen t Pain of bi lateral hands 0583308622 4665912 M79.641 M79.642 Increased pain in bilateral hands. We discussed evaluating inflammati on levels today. ESR 15, CRP 0.25Rheuma toid factor and anti-CCP were negative on March 14, 2022. [id number] RAYNA TURNER MD ORTHOPEDI [address] [place] [address] 12/15/2022 10:04:19 12/15/2022 10:32:29 Postoperative care 970836664 Z48.89 Previously s/p Left thumb CMC interposit ional arthroplas ty with APL tendon transfer suspension (DOS: 06/14/22) Osteoarthr osis of the carpometacarpal joint of the thumb 90881783 M18.11 M18.12 - Right severe Eaton stage III CMC joint arthritis (CSI: 11/16/2022; 06/14/22; 03/23/22) Previously s/p Left thumb CMC interposit ional arthroplas ty with APL tendon transfer suspension (DOS: 06/14/22) Trigger th umb of left hand 0994670486 28316 M65.312 Left trigger thumb (CSI: 09/01/2022) Mass of larose bcutaneous tissue of left thumb 1012440549 0283321 R22.32 [id number] RAYNA TURNER MD [facility]OP[facility]I [facility] [address] [place] [address] 01/19/2023 10:30:09 01/19/2023 11:48:33 Postoperative care 203988797 Z48.89 Previously s/p Left thumb CMC interposit ional arthroplas ty with APL tendon transfer suspension (DOS: 06/14/22) Osteoarthr osis of the carpometacarpal joint of the thumb 82076302 M18.11 M18.12 - Right severe Eaton stage III CMC joint arthritis (CSI: 11/16/2022; 06/14/22; 03/23/22) Previously s/p Left thumb CMC interposit ional arthroplas ty with APL tendon transfer suspension (DOS: 06/14/22) Trigger th umb of left hand 5823395243 04663 M65.312 Left trigger thumb (CSI: 09/01/2022) Mass of larose bcutaneous tissue of left thumb 6897063633 7673296 R22.32 MRI of the left thumb with and without contrast (01/05/2023 ) did not identify any definitive soft tissue mass in the left thumb. Moderate tendinosis of the APL tendon and findings consistent with previous CMC arthroplas ty noted. [id number] GOPAL HERNANDEZ MD [facility] [address] [place] [address] 11/19/2023 12:56:48 11/22/2023 04:45:32 Osteoarthritis of joint of hand 35592453 M19.049 Unfortunat huan she is still symptomati c. She is on Naproxen as needed. She can continue to use topical agents including voltaren gel. She should avoid NSAIDs due to having one kidney. Take Tylenol arthritis twice daily as needed. Paraffin wax pot at night, copper arthritis gloves during the day. Degenerati on of cervical intervertebral disc 19334779 M50.30 chronic and is post physical therapy with improvemen t. Does not have any radiculopa thy. Maintain core strengthen ing exercises. Will maintain PT as needed Pain of bi lateral hands 2621396477 6135517 M79.641 M79.642 Bilateral hand degenerati ve process without any evidence of inflammato ry arthritis. Status post left CMC arthroplas tylabs, 11/20/22 ESR 15, CRP 0.25Rheuma toid factor and anti-CCP were negative on March 14, 2022.Tamra nue with symptomati c management . Okay to take Tylenol and apply topical Voltaren gel as needed. Health Concerns Section Related Observation LastModified by Organization Detai ls LastModified Time None Recorded Concern Status LastModified by Organization Details LastModified Time None Recorded Advance Directives Directive None Recorded Payers Encounter Date Sequence Insurance Name Policy Number Policy Negrete Covered Member ID Negrete Member ID Guarantor Name 11/16/2022 1 [place] [id number] M Estela Anselmo [id number] Estela D Anselmo 11/20/2022 1 [place] [id number] M Estela Anselmo [id number] Estela D Anselmo 12/15/2022 1 [place] [id number] M Estela Anselmo [id number] Estela D Anselmo 01/19/2023 1 [place] [id number] M Estela Anselmo [id number] Estela D Anselmo 11/19/2023 1 MEDICARE-[employer] (MEDICARE) Estela Doegan [id number] Estela Zbigniew Anselmo 11/19/2023 2 [employer] [place] (MEDICARE SUPPLEMENT) Estela Briones [id number] Estela Briones Notes Date Note Type Note Provider Name and Address Organization Details Recorded Time 11/16/2022 text/html Patient is a 62 year old right hand dominant male who is 5 months post left thumb CMC interpositional arthroplasty and tendon transfer procedure here for follow up. Overall her left thumb is doing well, but she does report intermittent swelling more diffusely over the dorsal aspect of her left hand around the MCP joints. She reports exacerbation of her known right thumb CMC joint arthritis symptoms. She has a follow-up appointment scheduled with rheumatology next week. Consult requested by:Primary Care Physician: Robert Silverman Hand dominance: {{Right* Left ambidex trous}}Location: {{Right Left Bilatera l*}} {{Hand Wrist Elbow Ot her thumb#}} Pain level: {{0 1 2 3* 4 5 6 7 8 9 10}} /10 Date of injury: uration: 11 months Recent Surgery: {{Yes* No}}Procedure: - Left thumb CMC interpositional arthroplasty with APL tendon transfer suspension- Right thumb carpometacarpal joint corticosteroid injectionDate of surgery:[id number] geon(If Known): Rayna Turner In office procedure? {{Yes No*}} Previous upper extremity surgery? {{Yes No*}}Procedure: Approximate date of surgery:Surgeon (if known):Have you or an immediate family member ever seen our hand surgeons before? 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 {{Yes* No}} Is this injury associated with a Workers Compensation claim? 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 Ms. Briones, requesting injection for base of right thumb, last injection to this was 06-14-22 and began to bother her again when she returned to work. Left thumb, good days and bad days, intermittent swelling of knuckles and wrist, s/p left thumb CMC interpositional arthroplasty with APL tendon transfer suspension 5 months RAYNA TURNER MD [facility] [place], [phone], [place] [facility] 11/16/2022 17:13:17 11/20/2022 text/html A 62-year-old fe male with migraine, hypertension, here for follow-up. Diagnosed with advanced CMC osteoarthritis and referred to hand surgery, she set for arthroplasty of left CMC and right CMC steroid injection June 06. Her initial rheumatology evaluation revealed negative FILIPPO with reflex, negative CCP, rheumatoid factor. Normal CK, negative hepatitis panel. Normal B12 and folate. X-ray hands and sacroiliac joint with DJD changes. She has DDD of cervical spine. No fever, chest pain, shortness of air. She has aching pain all over body aching with activity and sensitive to touch. Hot shower helps She was seen first time by me March 14, 2022 in our clinic in consultation by her primary care provider to evaluate her joint symptoms. She reported thumb, hand pain with stiffness, body ache, lower back and neck pain, at time of shoulders pain, fatigue, has problem with sleeping, dizziness and issues with concentration. Symptoms started for months. No presence of psoriasis or IBD. She denied any cough, shortness of air at rest, chest pain, hemoptysis, hematemesis or gross hematuria. 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 No report of abnormal weight loss. On naproxen and does Voltaren gel for her CMC which seems to help some but not much. No history of jaw claudication or visual loss. She does not smoke. Drinks alcohol very rarely maybe once a year. WANG ACKERMAN, CANOPY STRINGER [address] [place], [phone], [facility] 11/20/2022 16:21:43 12/15/2022 text/html Since last visit , patient has developed a prominent mass along the volar aspect of the left thumb IP joint, with associated tenderness to palpation. By the end of the workday, this area is extremely tender and swollen. Denies any new injury. She also reports some recurrent pain along the A1 simone region of the thumb, but no definitive triggering. Consult requested by:Primary Care Physician: Robert Silverman Hand dominance: {{Right* Left ambidex trous}}Location: {{Right Left Bilatera l*}} {{Hand Wrist Elbow Ot her thumb#}} Pain level: {{0 1 2 3 4 5 6* 7 8 9 10}} /10 with use Date of injury: uration: 1 year Recent Surgery: {{Yes* No}}Procedure: - Left thumb CMC interpositional arthroplasty with APL tendon transfer suspension- Right thumb carpometacarpal joint corticosteroid injectionDate of surgery:[id number] geon(If Known): Rayna Turner In office procedure? {{Yes No*}} Previous upper extremity surgery? {{Yes No*}}Have you or an immediate family member ever seen our hand surgeons before? 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 {{Yes* No}} Is this injury associated with a Workers Compensation claim? 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 Briones visits us in office today for a recheck. Corticosteroid injection from 11/16/22 did not provide any relief. Continues to feel moderate pain paired with N/T. Main concern is that her top knuckle feels like bone is coming through the skin with flexion (per pt description). RAYNA TURNER MD [address] [place] [address], [phone], [facility] 12/15/2022 10:32:20 01/19/2023 text/html Patient returns to the clinic today to review her MRI results of the left thumb. She reports continued thumb pain with overuse and moderate numbness and tingling to the thumb and SF. She reports moderate stiffness and swelling. She states her thumb is very sensitive to the touch. She denies any catching or triggering. Consult requested by:Primary Care Physician: Robert Silverman Hand dominance: {{Right* Left ambidex trous}}Location: {{Right Left Bilatera l*}} {{Hand Wrist Elbow Ot her thumb#}} Pain level: {{0 1 2* 3 4 5 6 7 8 9 10}} /10 Date of injury: uration: 1 year Recent Surgery: {{Yes* No}}Procedure: - Left thumb CMC interpositional arthroplasty with APL tendon transfer suspension- Right thumb carpometacarpal joint corticosteroid injectionDate of surgery:[id number] geon(If Known): Rayna Turner In office procedure? {{Yes No*}} Previous upper extremity surgery? {{Yes No*}}Have you or an immediate family member ever seen our hand surgeons before? 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 {{Yes* No}} Is this injury associated with a Workers Compensation claim? 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 Briones visits us in office today for a recheck and to f/u on results of MRI from 01/05/23. Reports minimal pain in left thumb; more pain with overuse. Moderate n/t in left thumb/SF. Moderate stiffness and swelling. RAYNA TURNER MD [address] [place] [address], [phone], [facility] 01/29/2023 14:54:45 11/19/2023 text/html A 63-year-old fe male with seen today for a follow-up on advanced CMC osteoarthritis Sandra was last seen here in our rheumatology department 11/20/2022 by Wang. Post arthroplasty of left CMC and right CMC steroid injection June 06 2022. Her initial rheumatology evaluation revealed negative FILIPPO with reflex, negative CCP, rheumatoid factor. 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 No report of abnormal weight loss. No history of jaw claudication or visual loss. She does not smoke. Drinks alcohol very rarely maybe once a year. GOPAL HERNANDEZ MD [facility] [place], [phone], [facility] 11/21/2023 12:20:48 OBGyn Episode No OBEpisode recorded.
[2024-11-18 18:09] LABS: Deamidated Gliadin Abs, IgA 7 units (0-19); Deamidated Gliadin Abs, IgG 4 units (0-19); Endomysial IgA Antibody Negative (Negative); Tissue Transglutaminase IgA Ab <2 U/mL (0-3); Tissue Transglutaminase IgG Ab 6 U/mL (0-5)
[2024-11-20 09:18] LABS: Reticulin IgA Antibody Negative titer (Neg:<1:2.5)
== END 2024-11-17 23:59 | disposition home or self-care (01) ==
LOC: LAB 15:39
PROVIDERS: PCP Family Medicine; Visit Provider Nurse Practitioner
DX: R11.0 Nausea (principal); R10.84 Generalized abdominal pain; L29.9 Pruritus, unspecified; Z91.018 Allergy to other foods
CPT/HCPCS: 36415; 83516; 86255; 86256

== ENCOUNTER 2024-11-18 16:14 | Outpatient (CLI) | payer MEDICARE, SELFPAY ==
--- OUTSIDE RECORDS SUMMARY | 2024-11-18 16:17 | XMS_ITS | Data Portability ---
Author Organization MICAELA - CARMEN Jessica ALBION CLOSED Address [address] [facility] [address] [place] [address] Care Team Providers Care Catalytic Converter Operator Name Role Phone EDY PIÑA Primary Care Provider [phone] GOPAL HERNANDEZ Film Spooler Assessment Encounter Date Assessment Date Assessment LastModified [...] e sedimentati on rate), blood 2022 023 [facility], [address] [place] [address], [address], 3 15:49:52 C reactive protein, QN, serum or plasma 2022 023 [facility], [address] [place] [address], [address], 3 15:02:20 Referral None recorded. Procedures None recorded. Surgeries None recorded. Imaging MRI, finger(s), w/wo contrast - eval left volar IP thumb mass 2022 023 [facility], [address] [facility] , [place], [address], 3 14:57:51 Medication Orders None recorded. Patient TargetsNo targets recorded. Patient InstructionsNo instructions recorded. Reason for Referral None Reported. Results Created Date Observation Date Name Description Value Unit Range Abnormal Flag Note LastModifiedBy Organization Detail LastModifiedTime 11/21/1911/20/2022 C REACT GINNY PROTE IN C reactive protein 0.25 mg/dL 0.00-0 .49 normal Not Available [facility] [address] [place] [address], [address], 11/20/2022 15:02:20 11/21/19 23 11/20/2022 ESR, AUTOM ATED ESR, automated 15 mm 0-29 normal Not Available [facility] [address] [place], [address], 11/20/2022 15:49:52 01/06/2001/05/2023 MRI, finge r(s), w/wo contr ast [facility] [address] [place] [address] Sierra t Name: CHRIS Esquivel t : [...] admini strati on of 7.5cc Gadavi st ([facility] [address]0 1), there is mild enhanc ement [...] garcia MD on 023 2:52 PM bdevers [facility] [address] [place], [address], 01/09/2023 10:00:04 Result Notes None recorded. Problems No Known Problems Procedures Surgical History Date Name Laterality Status Provider Name and Address Organization Details Recorded Time 11/17/19 23 Injection Joint/Bursa, Interm completed RAYNA TURNER MD [address] [place] [address], [phone], [facility] 11/16/2022 17:12:03 09/01/19 23 Injection Trigger Finger Ortho completed RAYNA TURNER MD [address] [place], [address], [facility] 09/01/2022 11:22:38 06/29/20 22 Orthotic, HFO, Static Custom completed LAUREN TENA JR, OTR/L, CHT [address] [place], [address], [facility] 06/29/2022 13:08:32 06/14/20 22 Arthoplasty, thumb [facility] - [facility] completed RAYNA TURNER MD [address] [place], [address], [facility] 06/14/2022 11:04:53 06/14/20 22 arthroplasty of joint of the thumb completed Yasmeen Young [facility] 11/20/2022 13:06:12 03/23/20 22 Injection Joint/Bursa, Interm completed TREMAINE CARR PA-C [address] [place], [address], [facility] 03/31/2022 10:50:41 Imaging Results Imaging Date Name Status LastModified by Organiz ation Details LastModified Time 01/05/2023 MRI, finger(s), w/wo contrast completed bdevers [facility] [address] [place], [address], 01/09/2023 10:00:04 Procedure Notes None recorded. Medical Equipment None Reported. Allergies Allergen ID Allergen Name Allergen Category Reaction Reaction Severity Criticality Documentation Date Start Date Code Code System Note Provider Name and Address Organization Details Recorded Time 224895 Substance with sulfonami de structure and antibacte rial mechanism of action (substanc e) medicatio n Not available Not available Not available 03/14/2022 09006 8003 SNOMED [facility] 10:12:26 020935 Levaquin medicatio n Not available Not available Not available 03/14/2022 22998 2 RxNorm [facility] MICAELA mcclellan [facility] 2 10:12:44 Medications Name Sig Start Date [...] Not Available Not Available No t Available Ilfeld 5 mg-325 mg tablet TAKE 1 TAB PO Q 4-6 HRS PRN FOR SEVERE POST SURGICAL PAIN 11/20 completed Not Available Not Available Not Available diazepam 5 mg tablet Take 2 tablets as needed by oral route. 11/18 completed [facility]: 0904- 5880- 61 Not Available Not Available [...] Updated DateTime 11/16/2022 157.48 cm 29.3 kg/m2 14347.78 g [facility] 11/16/2022 14:09:46 Date Recorded Body height Body mass index (BMI) Body weight Heart rate Oxygen saturation Oxygen saturation in Arterial blood by Pulse oximetry Systolic blood pressure Diastolic blood pressure Provider Name and Address Organization Details Last Updated DateTime 3 157.48 cm 32.4 kg/m2 72589.2 5 g 68 /min 95 % 95 % 140 mm[Hg] 82 mm[Hg] Yasmeen Young [facility] 3 13:07:57 Date Recorded Body height Body mass index (BMI) Body weight Pain severity - 0-10 verbal numeric rating [Score] - Reported Provider Name and Address Organization Details Last Updated DateTime 12/15/2022 157.48 cm 32.4 kg/m2 53776.85 g 6 Dagmar [facility] 12/15/2022 10:11:25 Date Recorded Body height Pain severity - 0-10 verbal numeric rating [Score] - Reported Provider Name and Address Organization Details Last Updated DateTime 01/19/2023 157.48 cm 2 Dagmar [facility] 01/19/2023 11:19:30 Date Recorded Body height Body mass index (BMI) Body weight Respiratory rate Heart rate Oxygen saturation Oxygen saturation in Arterial blood by Pulse oximetry Systolic blood pressure Diastolic blood pressure Provider Name and Address Organization Details Last Updated DateTime 4 157.48 cm 30.9 kg/m2 49589.8 1 g 16 /min 71 /min 96 % 96 % 132 mm[Hg] 80 mm[Hg] Mandy Church [facility] 13:15:50 Social History Question Answer Notes LastModified by Organizat ion Details LastModified Time Tobacco Smoking Status Never Smoker Yara RodgerNancy [facility] 03/14/2022 10:16:58 What Is Your Level Of Alcohol Consumption? None Information not available 11/20/2022 Do You Wear A Helmet When Biking? Yes Information not available 03/23/2022 What Was The Date Of Your Most Recent Tobacco Screening? 11/19/2023 [email or web address] Information not available 11/19/2023 Do You Use [...] Diabetes N Bleeding Disorder N Arthritis Y Kidney Stones N Heart Conditions N Emphysema N Acid Reflux (GERD) Y COPD N Asthma N Liver Disease N Heart Attack (DE) N Heart Disease N Hypertension Y Gynecological HistoryNo gynecological history recorded. Obstetrics History GPAL:G 0 P 0 0 0 0 Past Encounters Encounter ID Performer Location Encounter Start Date Encounter Closed Date Diagnosis/Indication Diagnosis SNOMED-CT Code Diagnosis ICD10 Code Diagnosis Note [id number] JOSE TRIPLETT MD [facility] [address] [place] [address] 03/14/2022 09:59:06 03/14/2022 12:03:15 Pain of multiple joints 89111761 M25.50 Osteoarthr osis of the carpometacarpal joint of the thumb 65875569 M18.9 Myofascial pain 11294401 9 M79.10 [id number] TREMAINE CARR PA-C [facility] [address] [address] 03/23/2022 10:39:04 03/23/2022 11:38:42 Osteoarthrosis of the carpometacarpal joint of the thumb 18668577 M18.0 Severe osteoarthr itis of bilateral thumb CMC joints - Bilateral CSIs: 03/23/22 [id number] RAYNA TURNER MD [facility] [address] [address] 05/09/2022 15:32:07 05/10/2022 07:37:10 Osteoarthrosis of the carpometacarpal joint of the thumb 58274322 M18.11 M18.12 - Left severe Eaton stage III CMC joint arthritis (CSI: 03/23/22)- Right severe Eaton stage III CMC joint arthritis (CSI: 03/23/22) [id number] JOSE TRIPLETT MD [facility] [address] [place] [address] 05/16/2022 10:21:52 05/16/2022 10:55:54 Osteoarthritis of joint of hand 59730013 M19.049 Osteoarthr osis of the carpometacarpal joint of the thumb 67541967 M18.9 Myofascial pain 66645092 9 M79.10 Degenerati on of cervical intervertebral disc 97436822 M50.30 Bilateral osteoarthritis of sacroiliac joints 0884973851 0523677 M19.90 [id number] RAYNA TURNER MD SURGERY SCHEDULE [address] [place] [address] 06/14/2022 06:50:09 06/14/2022 06:50:33 [id number] TREMAINE CARR PA-C [facility] [address] [address] 06/29/2022 09:58:30 06/29/2022 13:55:18 Postoperative care 360422109 Z48.89 s/p Left thumb CMC interposit ional arthroplas ty with APL tendon transfer suspension ; Right thumb carpometac arpal joint corticoste roid injection (DOS: 06/14/22) Osteoarthr osis of the carpometacarpal joint of the thumb 43731349 M18.11 M18.12 - Right severe Eaton stage III CMC joint arthritis (CSI: 06/14/22; 03/23/22) s/p Left thumb CMC interposit ional arthroplas ty with APL tendon transfer suspension ; Right thumb carpometac arpal joint corticoste roid injection (DOS: 06/14/22) [id number] LAUREN TENA JR, OTR/L, CHT PHYSICAL THERAPY / HAND THERAPY [facility] [address] [address] 06/29/2022 10:56:23 06/29/2022 15:45:20 Osteoarthrosis of the carpometacarpal joint of the thumb 07577153 M18.9 [id number] RAYNA TURNER MD ORTHOPEDI [address] [place] [address] 07/21/2022 09:25:24 07/21/2022 10:47:03 Postoperative care 705999903 Z48.89 6 weeks s/p Left thumb CMC interposit ional arthroplas ty with APL tendon transfer suspension (DOS: 06/14/22) Osteoarthr osis of the carpometacarpal joint of the thumb 56992944 M18.11 M18.12 - Right severe Eaton stage III CMC joint arthritis (CSI: 06/14/22; 03/23/22) Previously s/p Left thumb CMC interposit ional arthroplas ty with APL tendon transfer suspension (DOS: 06/14/22) [id number] RAYNA TURNER MD ORTHOPEDI [address] [address] 09/01/2022 09:30:14 09/01/2022 11:46:12 Postoperative care 694054227 Z48.89 12 weeks s/p Left thumb CMC interposit ional arthroplas ty with APL tendon transfer suspension (DOS: 06/14/22) Osteoarthr osis of the carpometacarpal joint of the thumb 20309606 M18.11 M18.12 - Right severe Eaton stage III CMC joint arthritis (CSI: 06/14/22; 03/23/22) Previously s/p Left thumb CMC interposit ional arthroplas ty with APL tendon transfer suspension (DOS: 06/14/22) Trigger th umb of left hand 6835624380 04696 M65.312 Left trigger thumb (CSI: 09/01/2022) [id number] RAYNA TURNER MD [facility] [address] [address] 10/05/2022 14:12:39 10/05/2022 15:49:15 Postoperative care 127103180 Z48.89 4 months s/p Left thumb CMC interposit ional arthroplas ty with APL tendon transfer suspension (DOS: 06/14/22) Osteoarthr osis of the carpometacarpal joint of the thumb 97455358 M18.11 M18.12 - Right severe Eaton stage III CMC joint arthritis (CSI: 06/14/22; 03/23/22) Previously s/p Left thumb CMC interposit ional arthroplas ty with APL tendon transfer suspension (DOS: 06/14/22) Trigger th umb of left hand 6361694126 59795 M65.312 Left trigger thumb (CSI: 09/01/2022) - currently resolved [id number] RAYNA TURNER MD [facility] [address] [address] 11/16/2022 13:53:25 11/20/2022 12:15:15 Postoperative care 070523920 Z48.89 5 months s/p Left thumb CMC interposit ional arthroplas ty with APL tendon transfer suspension (DOS: 06/14/22) Osteoarthr osis of the carpometacarpal joint of the thumb 31361329 M18.11 M18.12 - Right severe Eaton stage III CMC joint arthritis (CSI: 11/16/2022; 06/14/22; 03/23/22) Previously s/p Left thumb CMC interposit ional arthroplas ty with APL tendon transfer suspension (DOS: 06/14/22) Trigger th umb of left hand 9985864904 10791 M65.312 Left trigger thumb (CSI: 09/01/2022) - currently resolved [id number] WANG ACKERMAN APRN [facility] [address] [place] [address] 11/20/2022 12:51:36 11/21/2022 04:37:20 Osteoarthritis of joint of hand 85531456 M19.049 Suggest using Voltaren gel over-the-c ounter. She should avoid NSAIDs due to having one kidney. Take Tylenol arthritis twice daily as needed. Paraffin wax pot at night, copper arthritis gloves during the day. Osteoarthr osis of the carpometacarpal joint of the thumb 37930700 M18.[address] 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 Degenerati on of cervical intervertebral disc 43774112 M50.30 she has tried physical therapy with improvemen t Pain of bi lateral hands 4757467010 9073870 M79.641 M79.642 Increased pain in bilateral hands. We discussed evaluating inflammati on levels today. ESR 15, CRP 0.25Rheuma toid factor and anti-CCP were negative on March 14, 2022. [id number] RAYNA TURNER MD ORTHOPEDI [address] [place] [address] 12/15/2022 10:04:19 12/15/2022 10:32:29 Postoperative care 144596043 Z48.89 Previously s/p Left thumb CMC interposit ional arthroplas ty with APL tendon transfer suspension (DOS: 06/14/22) Osteoarthr osis of the carpometacarpal joint of the thumb 97824442 M18.11 M18.12 - Right severe Eaton stage III CMC joint arthritis (CSI: 11/16/2022; 06/14/22; 03/23/22) Previously s/p Left thumb CMC interposit ional arthroplas ty with APL tendon transfer suspension (DOS: 06/14/22) Trigger th umb of left hand 3595587754 44764 M65.312 Left trigger thumb (CSI: 09/01/2022) Mass of laroes bcutaneous tissue of left thumb 8221420689 8804351 R22.32 [id number] RAYNA TURNER MD [facility]OPEDI [facility] [address] [place] [address] 01/19/2023 10:30:09 01/19/2023 11:48:33 Postoperative care 575291193 Z48.89 Previously s/p Left thumb CMC interposit ional arthroplas ty with APL tendon transfer suspension (DOS: 06/14/22) Osteoarthr osis of the carpometacarpal joint of the thumb 22745300 M18.11 M18.12 - Right severe Eaton stage III CMC joint arthritis (CSI: 11/16/2022; 06/14/22; 03/23/22) Previously s/p Left thumb CMC interposit ional arthroplas ty with APL tendon transfer suspension (DOS: 06/14/22) Trigger th umb of left hand 2026904289 62329 M65.312 Left trigger thumb (CSI: 09/01/2022) Mass of larose bcutaneous tissue of left thumb 4161616759 2216069 R22.32 MRI of the left thumb with and without contrast (01/05/2023 ) did not identify any definitive soft tissue mass in the left thumb. Moderate tendinosis of the APL tendon and findings consistent with previous CMC arthroplas ty noted. [id number] GOPAL HERNANDEZ MD [facility] [address] [place] [address] 11/19/2023 12:56:48 11/22/2023 04:45:32 Osteoarthritis of joint of hand 14849534 M19.049 Unfortunat huan she is still symptomati c. She is on Naproxen as needed. She can continue to use topical agents including voltaren gel. She should avoid NSAIDs due to having one kidney. Take Tylenol arthritis twice daily as needed. Paraffin wax pot at night, copper arthritis gloves during the day. Degenerati on of cervical intervertebral disc 72959748 M50.30 chronic and is post physical therapy with improvemen t. Does not have any radiculopa thy. Maintain core strengthen ing exercises. Will maintain PT as needed Pain of bi lateral hands 0800648837 3716228 M79.641 M79.642 Bilateral hand degenerati ve process [...] [place]) [id number] M Estela Anselmo [id number] Estela D Anselmo 11/20/2022 1 [place] [id number] M Estela Anselmo [id number] Estela D Anselmo 12/15/2022 1 [place] [id number] M Estela Anselmo [id number] 03 Estela D Anselmo 01/19/2023 1 [place] [id number] M Estela Anselmo [id number] 03 Estela D Anselmo 11/19/2023 1 MEDICARE-[place] (MEDICARE) Estela Doegan [id number] Estela Zbigniew Anselmo 11/19/2023 2 [employer] (MEDICARE SUPPLEMENT) Estela Briones [id number] Estela Briones Notes Date Note Type Note [...] Right thumb carpometacarpal joint corticosteroid injectionDate of surgery:68-11-0029Xls geon(If Known): Rayna Turner In office procedure? {{Yes No*}} Previous upper extremity surgery? {{Yes No*}}Procedure: Approximate date of surgery:Surgeon (if known):Have you or an immediate family member ever seen our hand surgeons before? 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 {{Yes* No}} Is this injury associated with a Workers Compensation claim? {{Yes No*}} Patient arrived in: {{cast splint surgica l dressing OTC brace CMC brace - removed.#}} Track Broom Operator Strength: right: left: Overall the return [...] transfer suspension 5 months RAYNA TURNER MD [facility] [place], [address], [place] [facility] 11/16/2022 17:13:17 11/20/2022 text/html A 62-year-old [...] rarely maybe once a year. WANG ACKERMAN, CENTER MEDICAL AND LAB DIRECTOR [address] [place], [address], [facility] 11/20/2022 16:21:43 12/15/2022 text/html Since last [...] Right thumb carpometacarpal joint corticosteroid injectionDate of surgery:[id number] geon(If Known): Rayna Turner In office procedure? {{Yes No*}} Previous upper extremity surgery? {{Yes No*}}Have you or an immediate family member ever seen our hand surgeons before? 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 {{Yes* No}} Is this injury associated with a Workers Compensation claim? {{Yes No*}} Patient arrived in: {{cast splint surgica l dressing OTC brace CMC brace - removed.#}} Track Broom Operator Strength: right: left: Ms. Briones visits us in office today for a recheck. Corticosteroid injection from 11/16/22 did not provide any relief. Continues to feel moderate pain paired with N/T. Main concern is that her top knuckle feels like bone is coming through the skin with flexion (per pt description). RAYNA TURNER MD [address] [place] [address], [address], [facility] 12/15/2022 10:32:20 01/19/2023 text/html Patient returns [...] Right thumb carpometacarpal joint corticosteroid injectionDate of surgery:[id number] geon(If Known): Rayna Turner In office procedure? {{Yes No*}} Previous upper extremity surgery? {{Yes No*}}Have you or an immediate family member ever seen our hand surgeons before? 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 {{Yes* No}} Is this injury associated with a Workers Compensation claim? {{Yes No*}} Patient arrived in: {{cast splint surgica l dressing OTC brace CMC brace - removed.#}} Track Broom Operator Strength: right: left: Ms. Briones visits us in office today for a recheck and to f/u on results of MRI from 01/05/23. Reports minimal pain in left thumb; more pain with overuse. Moderate n/t in left thumb/SF. Moderate stiffness and swelling. RAYNA TURNER MD [address] [place] [address], [address], [facility] 01/29/2023 14:54:45 11/19/2023 text/html A 63-year-old [...] maybe once a year. GOPAL HERNANDEZ MD [facility] [place], [address], [facility] 11/21/2023 12:20:48 OBGyn Episode No OBEpisode recorded.
--- OUTSIDE RECORDS SUMMARY | 2024-11-18 16:17 | XMS_ITS | Data Portability ---
Author Organization [place] - [facility] - [place] & [place] [facility] ADMIN Address [address] [place] [address] Assessment Encounter Date Assessment Date Assessment LastModified by Organization Details LastModified Time 03/23/2024 03/23/2024 Diagnosis Back Pain Patient advised to take medication as prescribed Alternate tylenol and motrin as needed. Alternate ice/heat Patient advised to rest initially and then slowly increase activity level. Monitor changes in symptoms such as numbness, tingling or weakness in legs, changes in bowel or bladder habits or worsening back pain. Proper ergonomics discussed. Patient instructed to follow up with worsening symptoms or concerns Patient was advised on risk and benefits of the use of oral steriods. Patient is wanting steriods to help with symptoms at this time. Patient was advised that if symptoms worsen at all to seek care [id number] Not available 03/23/2024 14:32:13 Plan of Treatment Reminders Order Date Submit Date Provider Last Modified By Organization Details Last Modified Time Details Appointments None recorded. Lab rapid SARS CoV 2 Ag, QL IA, respiratory specimen 2023 024 [id number] [facility], [address], [place], [address], Ph [phone] 12:45:09 rapid flu (A+B) 2023 024 [facility], [address], [place], [address], Ph [phone] 4 12:45:13 rapid strep group A, throat 2023 024 [email or web address] [facility], [address] [facility] [address], [place], [address], Ph [phone] 4 12:45:18 Referral None recorded. Procedures None recorded. Surgeries None recorded. Imaging None recorded. Medication Orders Augmentin 875 mg-125 mg tablet 2023 024 [facility], [address], [address], 4 12:49:54 prednisone 10 mg tablets in a dose pack 2023 024 [facility], [address], [address], 4 12:49:53 prednisone 10 mg tablets in a dose pack 2023 024 [facility], [address], [address], 4 14:29:44 cyclobenzap rine 5 mg tablet 2023 024 [facility], [address], [address], 4 14:29:45 Celestone Soluspan 6 mg/mL suspension for injection 2023 024 [email or web address] Not available 4 15:00:21 ketorolac 60 mg/2 mL intramuscul ar solution 2023 024 [email or web address] Not available 4 15:02:28 Patient TargetsNo targets recorded. Patient InstructionsNo instructions recorded. Reason for Referral None Reported. Results Created Date Observation Date Name Description Value Unit Range Abnormal Flag Note LastModifiedBy Organization Detail LastModifiedTime 07/06/20 24 07/06/2024 rapid strep group A, throa t Strep positi ve Not Available [facility] [address] [facility] [address], [place], [address], Ph [phone] 07/06/2024 11:52:28 07/06/20 24 07/06/2024 rapid flu (A+B) Flu B negati ve Not Available [facility] [address] [facility] [address], [place], [address], Ph [phone] 07/06/2024 11:52:20 07/06/20 24 07/06/2024 rapid flu (A+B) Flu A negati ve Not Available [facility] [address] [facility] [address], [place], [address], Ph [phone] 07/06/2024 11:52:20 07/06/20 24 07/06/2024 rapid SARS CoV 2 Ag, QL IA, respi rator y speci men rapid SARS CoV 2 Ag, QL IA, respiratory specimen negati ve Not Available [facility] [address] [facility] [address], [place], [address], Ph [phone] 07/06/2024 11:52:11 Result Notes None recorded. Medical Equipment None Reported. Allergies Allergen ID Allergen Name Allergen Category Reaction Reaction Severity Criticality Documentation Date Start Date Code Code System Note Provider Name and Address Organization Details Recorded Time 343991 Levaquin medicatio n Not available Not available Not available 03/23/2024 74572 2 RxNorm MICAELA Chauhan [facility] & [place] 4 14:21:33 372316 Substance with sulfonami de structure and antibacte rial mechanism of action (substanc e) medicatio n Not available Not available Not available 03/23/2024 97954 8003 SNOMED MICAELA Chauhan [facility] & [place] 4 14:21:47 Medications Name Sig Start Date Stop Date Status Note LastModified by Organization Details LastModified Time atorvastatin 40 mg tablet TAKE 1 TABLET BY MOUTH AT BEDTIME NIGHTLY active Not Available Not Available No t Available atorvastatin 10 mg tablet active Not Available Not Available Not Available Celestone Soluspan 6 mg/mL suspension for injection Take 9 mg by injection route. 2023 active Not Available Not Available Not Avai lable meloxicam 15 mg tablet TAKE 1 TABLET BY MOUTH ONCE DAILY active Not Available Not Available No t Available hydrocodone 10 mg-acetamino phen 325 mg tablet TAKE 1 TABLET BY MOUTH EVERY 6 HOURS NEEDED FOR ACUTE PAIN FOR 3 DAYS active Not Available Not Available N ot Available prednisone 10 mg tablets in a dose pack TAKE BY MOUTH DIRECTED ON INSIDE OF PACKAGE active Not Available Not Available No t Available tamsulosin 0.4 mg capsule TAKE 1 CAPSULE BY MOUTH EVERY DAY AFTER BREAKFAST active Not Available Not Available No t Available meclizine 25 mg tablet TAKE 1 TABLET BY MOUTH THREE TIMES DAILY NEEDED FOR DIZZINESS OR VERTIGO active Not Available Not Available N ot Available diazepam 2 mg tablet TAKE 1 TABLET BY MOUTH TWICE DAILY NEEDED FOR VERTIGO FOR 5 DAYS active Not Available Not Available No t Available rizatriptan 10 mg disintegrati ng tablet TAKE 1 TABLET AT ONSET OF HEADACHE IF NO RELIEF MAY REPEAT 1 TABLET AFTER AT LEAST 2 HOURS. MAX OF 2 TABS IN 24 HOURS OR 4 TABLETS PER WEEK active Not Available Not Available No t Available buspirone 10 mg tablet TAKE 1 TABLET BY MOUTH TWICE DAILY NEEDED FOR ANXIETY active Not Available Not Available No t Available prednisone 50 mg tablet TAKE 1 TABLET BY MOUTH ONCE DAILY FOR 5 DAYS, BEGIN 1 DAY AFTER ED VISIT active Not Available Not Available No t Available propranolol ER 80 mg capsule,24 hr,extended release active Not Available Not Available Not Available hydrochlorot hiazide 12.5 mg capsule active Not Available Not Available N ot Available docusate sodium 100 mg capsule TAKE 1 CAPSULE BY MOUTH TWICE A DAY NEEDED FOR CONSTIPATIO N active Not Available Not Available No t Available hydrochlorot hiazide 25 mg tablet active Not Available Not Available No t Available azelastine 137 mcg (0.1 %) nasal spray USE 2 SPRAY(S) IN EACH NOSTRIL TWICE DAILY active Not Available Not Available Not Available ketorolac 60 mg/2 mL intramuscula r solution Inject 60 mg by intramuscul ar route. 2023 active Not Available Not Available Not Avai lable ondansetron 4 mg disintegrati ng tablet TAKE 1 TABLET BY MOUTH EVERY 6 HOURS NEEDED FOR NAUSEA active Not Available Not Available No t Available amoxicillin 875 mg-potassium clavulanate 125 mg tablet TAKE 1 TABLET BY MOUTH EVERY 12 HOURS FOR 10 DAYS active Not Available Not Available Not Available cyclobenzapr ine 5 mg tablet TAKE 1 TABLET BY MOUTH THREE TIMES DAILY NEEDED FOR 4 DAYS active Not Available Not Available N ot Available duloxetine 20 mg capsule,darya yed release active Not Available Not Available Not Available levocetirizi ne 5 mg tablet TAKE 1 TABLET BY MOUTH ONCE DAILY active Not Available Not Available No t Available Vitals Date Recorded Body weight Oxygen saturation Oxygen saturation in Arterial blood by Pulse oximetry Body temperature Heart rate Heart rate Systolic blood pressure Diastolic blood pressure Provider Name and Address Organization Details Last Updated DateTime 4 42504.7 8 g 95 % 95 % 98.1 [degF] 72 /min 72 /min 150 mm[Hg] 83 mm[Hg] Faith Cannon [facility] & [place] 4 14:20:03 Date Recorded Body weight Body mass index (BMI) Body height Body temperature Oxygen saturation Oxygen saturation in Arterial blood by Pulse oximetry Heart rate Systolic blood pressure Diastolic blood pressure Provider Name and Address Organization Details Last Updated DateTime 4 75890.3 6 g 32 kg/m2 157.48 cm 98.8 [degF] 98 % 98 % 71 /min 155 mm[Hg] 70 mm[Hg] Yudith Marie [facility] & [place] 4 11:57:12 Social History None recorded. Functional Status None recorded. Mental Status None recorded. Family History Nothing Reported. Medical History No medical history recorded. Gynecological HistoryNo gynecological history recorded. Obstetrics History GPAL:G 0 P 0 0 0 0 Past Encounters Encounter ID Performer Location Encounter Start Date Encounter Closed Date Diagnosis/Indication Diagnosis SNOMED-CT Code Diagnosis ICD10 Code Diagnosis Note [id number] Ros Haywood APRN [facility] [address] [place] [address] 03/23/2024 13:59:18 03/23/2024 14:42:25 Low back pain 424082372 M54.50 [id number] Berto Haywood MD [facility] [address] [place] [address] 07/06/2024 10:26:18 07/06/2024 12:51:48 Sore throat 824035079 J02.9 Streptococ lawson sore throat 49655825 J02.0 Change toothbrush in 2-3 days Health Concerns Section Related Observation LastModified by Organization Detai ls LastModified Time None Recorded Concern Status LastModified by Organization Details LastModified Time None Recorded Advance Directives Directive None Recorded Payers Encounter Date Sequence Insurance Name Policy Number Policy Negrete Covered Member ID Negrete Member ID Guarantor Name 03/23/2024 2 [employer] (MEDICARE SUPPLEMENT) Estela D Anselmo [id number] Estela D Anselmo 03/23/2024 1 [place] Estela D Anselmo [id number] Estela D Anselmo 07/06/2024 2 [employer] LIFE [employer] (MEDICARE SUPPLEMENT) Estela D Anselmo [id number] Estela D Anselmo 07/06/2024 1 [place] Estela D Anselmo [id number] Estela D Anselmo Notes Date Note Type Note Provider Name and Address Organization Details Recorded Time 03/23/2024 text/html Back PainReporte d bypatient.Location: lumbar left;radiation to buttocks left Quality:stiffness; burning Severity:worsening; pain level 6/10 Duration:5 days Timing:acute Context:unknown patient states that she has chronic back pain with flare ups Alleviating Factors:none Aggravating Factors:twisting; flexing back; pushing; pulling; reaching Associated Symptoms:no fever; no weakness; no numbness; no tingling; no shortness of breath; no unintentional weight loss; no chills; no night sweats; no gait instability; no recent increase in stress; no bowel dysfunction; no bladder dysfunction Previous Injury:no prior back injury; no prior malignancy Prior Imaging:none Ros Haywood APRN [id number], [place], [address], [facility] & [place] 03/23/2024 14:32:55 07/06/2024 text/html 2-3 weeks of col d symptoms. Worsening. Sore throat, cough, congestion, no fever, feeling poorly. Fatigue. Berto Haywood MD [address], [place], [address], [facility] & [place] 07/06/2024 12:50:16 OBGyn Episode No OBEpisode recorded.
[2024-11-18 16:52] LABS: Basophils # 0.1 K/mm3 (0-0.2); Basophils % 0.8 % (0.1-2.0); Eosinophils # 0.3 Kmm3 (0.0-0.4); Eosinophils % 2.9 % (0.1-12.0); Hematocrit 46.2 % (37.0-47.0); Hemoglobin 15.5 g/dL (12.2-16.2); Immature Granulocytes # 0.02 10^3uL; Immature Granulocytes % 0.2 %; Lymphocytes # 2.2 K/mm3 (0.7-4.5); Lymphocytes % 25.6 % (10-50); Mean Corpuscular HGB Conc 33.5 g/dL (31.8-35.4); Mean Corpuscular Hemoglobin 31.7 pg (27.0-31.2); Mean Corpuscular Volume 94.5 fl (81-99); Monocytes # 0.6 K/mm3 (0.1-1.0); Monocytes % 7.2 % (1.7-9.3); Neutrophils # 5.5 K/mm3 (1.8-7.8); Neutrophils % 63.3 % (37.0-80.0); Nucleated Red Blood Cells # 0 10^3/uL; Nucleated Red Blood Cells % 0 %; Platelet Count 260 K/mm3 (142-424); Red Blood Count 4.89 M/mm3 (4.20-5.40); Red Cell Distribution Width 12.9 % (11.5-17.5); Red Cell Distribution Width-SD 44.8 fL; White Blood Count 8.7 K/mm3 (4.8-10.8)
[2024-11-18 17:32] LABS: Alanine Aminotransferase 23 U/L (12-78); Alkaline Phosphatase 63 U/L (38-126); Aspartate Amino Transferase 30 U/L (14-36); Blood Urea Nitrogen 27 mg/dl (7-17); Calcium 9.8 mg/dl (8.4-10.2); Carbon Dioxide 30 mmol/L (22.0-30.0); Chloride 104 mmol/L (98-107); Estimated Glomerular Filt Rate 55 ml/min (>60); GFR (African American) 67 ML/MIN (>60); Globulin 2.5 g/dL (1.3-3.2); Glucose 73 mg/dl (74-100); Sodium 138 mmol/L (136-145); Total Protein,Serum 7.5 g/dl (6.3-8.2)
[2024-11-18 18:05] LABS: Thyroid Stimulating Hormone 1.56 uIU/mL (0.465-4.68)
[2024-11-20 08:12] LABS: Thyroid Peroxidase Antibodies 14 IU/mL (0-34)
[2024-11-20 12:11] LABS: Antinuclear Antibodies, IFA Negative (.)
[2024-11-20 18:10] LABS: Thyroglobulin Level <1.0 IU/mL (0.0-0.9)
== END 2024-11-18 23:59 | disposition home or self-care (01) ==
LOC: LAB 16:15
PROVIDERS: PCP Family Medicine; Visit Provider Allergy & Immunology
DX: E55.9 Vitamin D deficiency, unspecified (principal); J30.5 Allergic rhinitis due to food; L29.9 Pruritus, unspecified
CPT/HCPCS: 36415; 80053; 82306; 82785; 83520; 84439; 84443; 85025; 86003; 86008; 86038; 86376; 86800

== ENCOUNTER 2025-05-05 11:08 | Outpatient (CLI) | payer MEDICARE, SELFPAY ==
[2025-05-05 18:04] LABS: Hematocrit 46.7 % (37.0-47.0); Hemoglobin 15.3 g/dL (12.2-16.2); Immature Granulocytes % 0.5 %; Mean Corpuscular HGB Conc 32.8 g/dL (31.8-35.4); Mean Corpuscular Hemoglobin 31.9 pg (27.0-31.2); Mean Corpuscular Volume 97.3 fl (81-99); Nucleated Red Blood Cells % 0 %; Platelet Count 217 K/mm3 (142-424); Red Blood Count 4.80 M/mm3 (4.20-5.40); Red Cell Distribution Width-SD 48.9 fL; White Blood Count 7.6 K/mm3 (4.8-10.8)
[2025-05-05 18:18] LABS: Hemoglobin A1C 5.7 % (4.0-6.0)
[2025-05-05 18:23] LABS: Albumin Level 4.2 g/dl (3.5-5.0); Chloride 98 mmol/L (98-107); Potassium 4.2 mmoL/L (3.5-5.1); Sodium 137 mmol/L (136-145)
[2025-05-05 18:26] LABS: Alanine Aminotransferase 34 U/L (12-78); Albumin/Globulin Ratio 1.4 (1.1-1.8); Alkaline Phosphatase 58 U/L (38-126); Anion Gap 14.2 mEq/L (5-15); Aspartate Amino Transferase 35 U/L (14-36); Bilirubin,Total 1.0 mg/dl (0.2-1.3); Calcium 9.3 mg/dl (8.4-10.2); Carbon Dioxide 29 mmol/L (22.0-30.0); Cholesterol 263 mg/dl (140-200); Globulin 2.9 g/dL (1.3-3.2); Glucose 72 mg/dl (74-100); HDL Cholesterol 75 mg/dl (40-60); Total Protein,Serum 7.1 g/dl (6.3-8.2); Triglycerides 285 mg/dl (30-150)
[2025-05-05 18:32] LABS: Blood Urea Nitrogen 26 mg/dl (7-17); Creatinine,Serum 0.90 mg/dl (0.52-1.04); Estimated Glomerular Filt Rate 62 ml/min (>60); GFR (African American) 76 ML/MIN (>60)
[2025-05-05 18:56] LABS: Thyroid Stimulating Hormone 1.09 uIU/mL (0.465-4.68)
--- OUTSIDE RECORDS SUMMARY | 2025-05-06 14:55 | XMS_ITS ---
Author Organization Unknown [facility] Start Date Provider Encounter for Check-up [id number] [facility]
== END 2025-05-05 23:59 | disposition home or self-care (01) ==
LOC: LAB.DROPOF 05-06 14:13
PROVIDERS: PCP Nurse Practitioner Family; Visit Provider Nurse Practitioner Family
DX: E78.5 Hyperlipidemia, unspecified (principal); R73.09 Other abnormal glucose; I10 Essential (primary) hypertension; R53.83 Other fatigue
CPT/HCPCS: 80053; 80061; 83036; 84443; 85025

== ENCOUNTER 2025-05-20 14:37 | Outpatient (CLI) | payer MEDICARE, SELFPAY ==
--- OUTSIDE RECORDS SUMMARY | 2025-05-14 01:29 | XMS_ITS | Continuity of Care Document ---
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 Name Role Phone GAVINO LOPEZ Admitting GAVINO LOPEZ Primary Attending EDY PIÑA Primary Care Unavailable ALLERGIES AND ADVERSE REACTIONS ALLERGIES AND ADVERSE REACTIONS Code System Allergy Substance Adverse Reaction Date Reaction (Severity) Comment Status Reported By Updated [place] [id number] SNOMED CT Sulfa Antibiotics Adverse reaction to substance Not Specified active [id number] on June 02, 2021 12:42:59 PM [facility] [address] RXNorm Levaquin Adverse reaction to substance Not Specified active [id number] on June 02, 2021 12:43:00 PM [facility] RESULTS Patient: LUIS DANIEL ORDAZ Date of : May 04 8 LABORATORY RESULTS Information is not available LABORATORY NARRATIVE RESULTS Information is not available RADIOLOGY RESULTS ORDER 100: MRI HIP W/O LT (L OINC: 14621-4) ORDER DATE: May 12, 2025 5:11:00 PM [facility] PERFORMING LAB: [address] [id number] Final Result Date: April 162024 11:18:[address] [address] Name: SUSHMA CARY Exam Date: 05/12/2025 : 1960 Age 65 years Gender: F Physician: GAVINO LOPEZ Facility: [facility] Facility HSV: Outpatient Exam: MRI HIP W/O LT EXAMINATION: MRI LEFT HIP CLINICAL INDICATION: Female, 65 years old. pain in bilateral hips M25.552 M25.551 COMPARISON: None. TECHNIQUE: Multiplanar and multisequence images were obtained. FINDINGS: There is likely a tear involving the anterior labrum where there is a 1.4 cm paralabral cyst as seen on series 105 image 17. There is mild joint space narrowing of the left hip. Femoral head maintains its spherical orientation. There is no joint effusion. There is no evidence of peritrochanteric/trochanteric bursitis. The visualized portions of the sacroiliac joints are unremarkable. Images of the pelvis show no evidence of free pelvic fluid. There is no evidence of pelvic mass. IMPRESSION: Likely anterior labral tear with paralabral cyst. Electronically signed by: Becky Varela MD 05/12/2025 07:18 PM EDT Dictated By: Becky Varela Transcribed By: Transcribed On: 05/12/2025 7:18 PM Electronically signed by: Becky Varela 05/12/2025 Thank you for referring SUSHMA CARY to [facility]. Legally authenticated by ADRIANNA MILES 2025-05-12 19:18:04 ORDER 200: MRI HIP W/O RT (L OINC: 03784-2) ORDER DATE: May 12, 2025 5:11:00 PM [facility] PERFORMING LAB: [address] [id number] Final Result Date: April 162024 10:10:24 PM [facility] [address] [address] Name: SUSHMA CARY Exam Date: 05/12/2025 : 1960 Age 65 years Gender: F Physician: GAVINO LOPEZ Facility: [facility] Facility HSV: Outpatient Exam: MRI HIP W/O RT STUDY: MRI RIGHT HIP COMPARISON: None HISTORY: Hip pain TECHNIQUE: Multiplanar and multisequence images were obtained. FINDINGS: There is mild joint space narrowing of the right hip. The femoral head is smooth without evidence of osteochondral defect. The femoral acetabular joints are well maintained. There is no joint effusion. The visualized osseous structures demonstrate normal marrow signal characteristics. There is no evidence of peritrochanteric/trochanteric bursitis. The visualized portions of the sacroiliac joints are unremarkable. Images of the pelvis show no evidence of free pelvic fluid. There is no evidence of pelvic mass. IMPRESSION: Mild joint space narrowing, otherwise unremarkable MRI of the right hip Electronically signed by: Becky Varela MD 05/12/2025 06:10 PM EDT RP Dictated By: Becky Varela Transcribed By: Transcribed On: 05/12/2025 6:10 PM Electronically signed by: Becky Varela 05/12/2025 Thank you for referring SUSHMA CARY to [facility]. Legally authenticated by ADRIANNA MILES 2025-05-12 18:10:24 PATHOLOGY NARRATIVE RESULTS Information is not available MICROBIOLOGY RESULTS No Micro Labs/Results Exist for Patient BLOOD ADMIN RESULTS Information is not available MEDICATIONS HOME MEDICATIONS Status RXNORM NDC Medication Dose Route Frequency Dates Comments Reported By Updated By Drug Treatment Unknown DISCHARGE MEDICATIONS Status RXNORM NDC Medication Dose Route Frequency Dates Dis pense Data Comments Physician Updated By No Discharge Medication Info rmation Available INPATIENT MEDICATIONS Status RXNORM NDC Medication Dose Route Frequency Rat e Quantity Dates Indication Dispense Data Comments Physician Updated By No Inpatient Medication Info rmation Available SOCIAL HISTORY SOCIAL HISTORY - Smoking Status SNOMED-CT Social History Element Description Effective Dates Offered Cessation Comment Updated By [id number] Smoking Status Unknown If Ever Smoked SOCIAL HISTORY - Gender Sex: Female SOCIAL HISTORY - Status : status i nformation is not available Intention in Next Year: intention information is not available SOCIAL HISTORY - Assessments Code System Description Status Date Value of Assessment Updated By Comment Assessment Information is no t available SOCIAL HISTORY - [place] Affiliation [place] information is not av ailable SOCIAL HISTORY - Legal Sex Legal Sex information is not available SOCIAL HISTORY - Sexual Behavior Sexual Orientation Gender Identity SNOMED-CT Description SNO MED -CT Description Activity Level No of Partners Partner Type UpdatedBy Information is not available SOCIAL HISTORY - Occupation Occupation information is no t available HEALTH CONCERNS Problems Concern Status Health Concern problem infor mation not available. Smoking Status Status Years Used Consumed packs p er day Health Concern smoking histo ry information not available. Family History Concern Status Health Concern family histor y information not available. ENCOUNTERS ENCOUNTER INFORMATION Reason for Visit MRI HIP BILATERAL Admission May 12, 2025 4:59:00 PM [place] [id number] [facility] [address] Discharge May 12, 2025 4:59:00 PM [facility] DISCHARGED TO HOME OR SELF CARE ENCOUNTER DIAGNOSES Notes information is not elis ilable. Code System Diagnosis Onset Date Diagnosis information is not available. 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 Role on Team Location Telecom Status Start Date End Mikey e Updated By AYANA Carmona PCP normal May 12, 2025 4:00:00 AM [facility] May 12, 2025 4:59:00 PM [facility] [id number] on May 12, 2025 5:01:42 PM [facility] NICK KIRK PCP normal May 11, 2025 5:40:07 PM [facility] May 12, 2025 4:00:00 AM [facility] [id number] on May 12, 2025 5:01:42 PM [facility] JOHN PATEL Attending normal May 11, 2025 5:40:06 PM [facility] May 12, 2025 4:59:00 PM [facility] [id number] on May 12, 2025 5:01:42 PM [facility] JOHN PATEL Admitting normal May 11, 2025 5:40:06 PM [facility] May 12, 2025 4:59:00 PM [facility] [id number] on May 12, 2025 5:01:42 PM [facility]
--- OUTSIDE RECORDS SUMMARY | 2025-05-20 14:40 | XMS_ITS | Data Portability ---
Author Organization MICAELA CARMEN Jessica GARRETT CLOSED Address [address] [facility] [facility] [facility] [place] [address] Care Team Providers Care Advanced Quality Engineer Name Role Phone EDY PIÑA Primary Care Provider GOPAL HERNANDEZ Teacher Of The Hearing Impaired Assessment Encounter Date Assessment Date Assessment LastModified [...] e sedimentati on rate), blood 2022 023 [facility], [address] [place] [address], [phone], 15:49:52 C reactive protein, QN, serum or plasma 2022 023 [facility], [address] [place] [address], [phone], 15:02:20 Referral None recorded. Procedures None recorded. Surgeries None recorded. Imaging MRI, finger(s), w/wo contrast - eval left volar IP thumb mass 2022 023 [facility], [address] [facility] , [place], [address], 14:57:51 Medication Orders None recorded. Patient TargetsNo targets recorded. Patient InstructionsNo instructions recorded. Reason for Referral None Reported. Results Created Date Observation Date Name Description Value Unit Range Abnormal Flag Note LastModifiedBy Organization Detail LastModifiedTime 11/21/1911/20/2022 C REACT GINNY PROTE IN C reactive protein 0.25 mg/dL 0.00-0 .49 normal Not Available [facility] [address] [place] [address], [address], 11/20/2022 15:02:20 11/21/19 23 11/20/2022 ESR, AUTOM ATED ESR, automated 15 mm 0-29 normal Not Available [facility] [address] [place], [address], 11/20/2022 15:49:52 01/06/2001/05/2023 MRI, finge r(s), w/wo contr ast [facility] [address] [place] [address], [place] [address] Sierra alvarez Name: CHRIS alvarez : 1959 Patireymundo t 31 Orderi ng [...] admini strati on of 7.5cc Gadavi st ([facility] [address] 1), there is mild enhanc ement [...] garcia MD on 023 2:52 PM bdevers [facility] [address], [address], 01/09/2023 10:00:04 Result Notes Documentation Provider Name and Address Organization Details Recorded Time Mri, Finger(s), W/wo Contras t : [address] [address] Patient Name: ESTELA BRIONES Patient : 1960 Patient Ordering Provider: RAYNA TURNER EXAM DATE: 01/05/2023 EXAM: MR LT FINGER W/WO CONTRAST HISTORY: 62 year old female with a mass at the tip of the left thumb. The patient has a prior first carpometacarpal interposition arthroplasty and abductor pollicis longus tendon transfer suspension. COMPARISON: Radiograph dated 07/21/2022 Diazepam 5 mg p.o. was given for sedation without complication. FINDINGS: The patient is status post first carpometacarpal arthroplasty. There are moderate to severe residual degenerative changes at the first metacarpal base. There is mild subcortical marrow edema at the first metacarpal base. There are mild degenerative changes at the distal pole of the scaphoid with adjacent joint fluid. The bones of the thumb are normal in alignment. There is no fracture or pathologic intraosseous lesion. There is no confluent marrow edema or periosteal edema. There are mild degenerative changes in the interphalangeal joint of the thumb and the first metacarpophalangeal joint. The collateral ligaments at the interphalangeal joint of the thumb and the first metacarpophalangeal joint appear intact. There is thickening of the abductor pollicis longus tendon. The insertion of this tendon is not clearly seen, but no definite tear is identified. The remaining tendons of the thumb appear normal. The muscles of the thenar eminence are normal in appearance. After intravenous administration of 7.5cc Gadavist ([facility] [address]-68), there is mild enhancement adjacent to the flexor pollicis longus tendon. There is enhancement in the first carpometacarpal arthroplasty and probable enhancement at the attachment of the abductor pollicis longus tendon. No enhancing soft tissue mass is identified. IMPRESSION: 1. No soft tissue mass is identified in the left thumb. 2. There is moderate tendinosis of the abductor pollicis longus longus tendon. There is limited visualization of the attachment of this tendon, but no tear is conclusively seen. 3. There is a prior first carpometacarpal arthroplasty. 4. There are mild degenerative changes in the thumb. Interpreted By: Linden Spain MD A TURNER MD [address] [place], [address], [facility] 01/09/2023 10:00:04 Problems No Known Problems Procedures Surgical History Date Name Laterality Status Provider Name and Address Organization Details Recorded Time 11/17/19 23 Injection - Joint/Bursa, Interm completed RAYNA TURNER MD [address] [place], [address] [place] [address] 11/16/2022 17:12:03 09/01/19 23 Injection - Trigger Finger, Ortho completed RAYNA TURNER MD [address] [place], [address], [facility] 09/01/2022 11:22:38 06/29/20 22 Orthotic, HFO, Static Custom completed LAUREN TENA JR, OTR/L, CHT [address] [place] [address], [phone] [place] [address] 06/29/2022 13:08:32 06/14/20 22 Arthoplasty, thumb CMC - Ruperto completed RAYNA TURNER MD [address] [place], [address], [facility] 06/14/2022 11:04:53 06/14/20 22 arthroplasty of joint of the thumb completed Yasmeen Young [facility] 11/20/2022 13:06:12 03/23/20 22 Injection - Joint/Bursa, Interm completed TREMAINE CARR PA-C [address] [place], [address] [place] [address] 03/31/2022 10:50:41 Imaging Results None recorded. Procedure Notes None recorded. Medical Equipment None Reported. Allergies Allergen ID Allergen Name Allergen Category Reaction Reaction Severity Criticality Documentation Date Start Date Code Code System Note Provider Name and Address Organization Details Recorded Time 602030 Substance with sulfonami de structure and antibacte rial mechanism of action (substanc e) medicatio n Not available Not available Not available 03/14/2022 56038 8881 SNOMED Yara Bebout-Ta ulbee [facility] 2 10:12:26 134403 Levaquin medicatio n Not available Not available Not available 03/14/2022 63394 2 RxNorm Yara bruce [facility] 2 10:12:44 Medications Name Sig Start Date [...] Not Available Not Available No t Available Welling 5 mg-325 mg tablet TAKE 1 TAB PO Q 4-6 HRS PRN FOR SEVERE POST SURGICAL PAIN 11/20 completed Not Available Not Available Not Available diazepam 5 mg tablet Take 2 tablets as needed by oral route. 11/18 completed [facility]: 0904- 5880- 61 Not Available Not Available [...] Updated DateTime 11/16/2022 157.48 cm 29.3 kg/m2 68572.78 g [facility] 11/16/2022 14:09:46 Date Recorded Body height Body mass index (BMI) Body weight Respiratory rate Heart rate Oxygen saturation Oxygen saturation in Arterial blood by Pulse oximetry Systolic And Diastolic Provider Name and Address Organization Details Last Updated DateTime 4 157.48 cm 30.9 kg/m2 07512.8 1 g 16 /min 71 /min 96 % 96 % 132/80 mm[Hg] Mandy Church [facility] 4 13:15:50 Date Recorded Body height Body mass index (BMI) Body weight Heart rate Oxygen saturation Oxygen saturation in Arterial blood by Pulse oximetry Systolic And Diastolic Provider Name and Address Organization Details Last Updated DateTime 3 157.48 cm 32.4 kg/m2 06593.2 5 g 68 /min 95 % 95 % 140/82 mm[Hg] Yasmeen Young [facility] 3 13:07:57 Date Recorded Body height Body mass index (BMI) Body weight Pain severity - 0-10 verbal numeric rating [Score] - Reported Provider Name and Address Organization Details Last Updated DateTime 12/15/2022 157.48 cm 32.4 kg/m2 30923.85 g 6 Dagmar Soler [facility] 12/15/2022 10:11:25 Date Recorded Body height Pain severity - 0-10 verbal numeric rating [Score] - Reported Provider Name and Address Organization Details Last Updated DateTime 01/19/2023 157.48 cm 2 Dagmar Soler [facility] 01/19/2023 11:19:30 Social History Question Answer Notes LastModified by Organizat ion Details LastModified Time Tobacco Smoking Status Never Smoker Yara Jeremy wong [facility] 03/14/2022 10:16:58 Do You Wear A Helmet When Biking? Yes Information not available 03/23/2022 What Was The Date Of Your Most Recent Tobacco Screening? 11/19/2023 Information not available 11/19/2023 Do You Use Your Seat Belt Or Car Seat Routinely? Yes Information not available 03/23/2022 Has Tobacco Cessation Counseling Been Provided? No Information not available 03/14/2022 Have You Recently Traveled Abroad? No Information not available 11/20/2022 Sex: Female Functional Status Question Answer Note LastModified by Organizat ion Details LastModified Time Do you use any illicit or recreational drugs? No Information not available 03/14/2022 Do you or have you ever used any other forms of tobacco or nicotine? No Information not available 03/14/2022 What is your level of alcohol consumption? None Information not available 11/20/2022 Mental Status None recorded. Family History Nothing Reported. Medical History Condition Response Diabetes N Bleeding Disorder N Arthritis Y Kidney Stones N Heart Conditions N Emphysema N Acid Reflux (GERD) Y COPD N Asthma N Liver Disease N Heart Attack (CO) N Heart Disease N Hypertension Y Gynecological HistoryNo gynecological history recorded. Obstetrics History GPAL:G 0 P 0 0 0 0 Past Encounters Encounter ID Performer Location Encounter Start Date Encounter Closed Date Diagnosis/Indication Diagnosis SNOMED-CT Code Diagnosis ICD10 Code Diagnosis IMO Codes Diagnosis Note [id number] JOSE TRIPLETT MD [facility] [address] [place] [address] 03/14/2022 09:59:06 03/14/2022 12:03:15 Pain of multiple joints 81943107 M25.50 Osteoarthr osis of the carpometacarpal joint of the thumb 81987192 M18.9 Myofascial pain 98006473 9 M79.10 [id number] TREMAINE CARR PA-C [facility] [address] [place] [address] 03/23/2022 10:39:04 03/23/2022 11:38:42 Osteoarthrosis of the carpometacarpal joint of the thumb 88999550 M18.0 Severe osteoarthr itis of bilateral thumb CMC joints - Bilateral CSIs: 03/23/22 [id number] RAYNA TURNER MD [facility] [address] [address] 05/09/2022 15:32:07 05/10/2022 07:37:10 Osteoarthrosis of the carpometacarpal joint of the thumb 19539905 M18.11 M18.12 - Left severe Eaton stage III CMC joint arthritis (CSI: 03/23/22)- Right severe Eaton stage III CMC joint arthritis (CSI: 03/23/22) [id number] JOSE TRIPLETT MD [facility] [address] [place] [address] 05/16/2022 10:21:52 05/16/2022 10:55:54 Osteoarthritis of joint of hand 89826535 M19.049 Osteoarthr osis of the carpometacarpal joint of the thumb 61516714 M18.9 Myofascial pain 34706880 9 M79.10 Degenerati on of cervical intervertebral disc 37706704 M50.30 Bilateral osteoarthritis of sacroiliac joints 2910592669 2309139 M19.90 [id number] RAYNA TURNER MD SURGERY SCHEDULE [address] [place] [address] 06/14/2022 06:50:09 06/14/2022 06:50:33 [id number] TREMAINE CARR PA-C [facility] [address] [place] [address] 06/29/2022 09:58:30 06/29/2022 13:55:18 Postoperative care 767387700 Z48.89 s/p Left thumb CMC interposit ional arthroplas ty with APL tendon transfer suspension ; Right thumb carpometac arpal joint corticoste roid injection (DOS: 06/14/22) Osteoarthr osis of the carpometacarpal joint of the thumb 96721322 M18.11 M18.12 - Right severe Eaton stage III CMC joint arthritis (CSI: 06/14/22; 03/23/22) s/p Left thumb CMC interposit ional arthroplas ty with APL tendon transfer suspension ; Right thumb carpometac arpal joint corticoste roid injection (DOS: 06/14/22) [id number] LAUREN TENA JR, OTR/L, CHT PHYSICAL THERAPY / HAND THERAPY [facility] [address] [address] 06/29/2022 10:56:23 06/29/2022 15:45:20 Osteoarthrosis of the carpometacarpal joint of the thumb 70134379 M18.9 [id number] RAYNA TURNER MD ORTHOPEDI [address] [place] [address] 07/21/2022 09:25:24 07/21/2022 10:47:03 Postoperative care 239517967 Z48.89 6 weeks s/p Left thumb CMC interposit ional arthroplas ty with APL tendon transfer suspension (DOS: 06/14/22) Osteoarthr osis of the carpometacarpal joint of the thumb 12146259 M18.11 M18.12 - Right severe Eaton stage III CMC joint arthritis (CSI: 06/14/22; 03/23/22) Previously s/p Left thumb CMC interposit ional arthroplas ty with APL tendon transfer suspension (DOS: 06/14/22) [id number] RAYNA TURNER MD ORTHOPEDI [address] [place] [address] 09/01/2022 09:30:14 09/01/2022 11:46:12 Postoperative care 820163199 Z48.89 12 weeks s/p Left thumb CMC interposit ional arthroplas ty with APL tendon transfer suspension (DOS: 06/14/22) Osteoarthr osis of the carpometacarpal joint of the thumb 76602639 M18.11 M18.12 - Right severe Eaton stage III CMC joint arthritis (CSI: 06/14/22; 03/23/22) Previously s/p Left thumb CMC interposit ional arthroplas ty with APL tendon transfer suspension (DOS: 06/14/22) Trigger th umb of left hand 9218198015 68474 M65.312 Left trigger thumb (CSI: 09/01/2022) [id number] RAYNA TURNER MD [facility] [address] [address] 10/05/2022 14:12:39 10/05/2022 15:49:15 Postoperative care 537761597 Z48.89 4 months s/p Left thumb CMC interposit ional arthroplas ty with APL tendon transfer suspension (DOS: 06/14/22) Osteoarthr osis of the carpometacarpal joint of the thumb 58777595 M18.11 M18.12 - Right severe Eaton stage III CMC joint arthritis (CSI: 06/14/22; 03/23/22) Previously s/p Left thumb CMC interposit ional arthroplas ty with APL tendon transfer suspension (DOS: 06/14/22) Trigger th umb of left hand 9308736058 94014 M65.312 Left trigger thumb (CSI: 09/01/2022) - currently resolved [id number] RAYNA TURNER MD [facility] [address] [address] 11/16/2022 13:53:25 11/20/2022 12:15:15 Postoperative care 652050509 Z48.89 5 months s/p Left thumb CMC interposit ional arthroplas ty with APL tendon transfer suspension (DOS: 06/14/22) Osteoarthr osis of the carpometacarpal joint of the thumb 13468760 M18.11 M18.12 - Right severe Eaton stage III CMC joint arthritis (CSI: 11/16/2022; 06/14/22; 03/23/22) Previously s/p Left thumb CMC interposit ional arthroplas ty with APL tendon transfer suspension (DOS: 06/14/22) Trigger th umb of left hand 0568010640 68743 M65.312 Left trigger thumb (CSI: 09/01/2022) - currently resolved [id number] WANG ACKERMAN APRN [facility] [address] [place] [address] 11/20/2022 12:51:36 11/21/2022 04:37:20 Osteoarthritis of joint of hand 18496831 M19.049 Suggest using Voltaren gel over-the-c ounter. She should avoid NSAIDs due to having one kidney. Take Tylenol arthritis twice daily as needed. Paraffin wax pot at night, copper arthritis gloves during the day. Osteoarthr osis of the carpometacarpal joint of the thumb 89049155 M18.[address] 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 Degenerati on of cervical intervertebral disc 06190159 M50.30 she has tried physical therapy with improvemen t Pain of bi lateral hands 3560360319 3143422 M79.641 M79.642 Increased pain in bilateral hands. We discussed evaluating inflammati on levels today. ESR 15, CRP 0.25Rheuma toid factor and anti-CCP were negative on March 14, 2022. [id number] RAYNA TURNER MD ORTHOPEDI [address] [address] 12/15/2022 10:04:19 12/15/2022 10:32:29 Postoperative care 411004731 Z48.89 Previously s/p Left thumb CMC interposit ional arthroplas ty with APL tendon transfer suspension (DOS: 06/14/22) Osteoarthr osis of the carpometacarpal joint of the thumb 29514970 M18.11 M18.12 - Right severe Eaton stage III CMC joint arthritis (CSI: 11/16/2022; 06/14/22; 03/23/22) Previously s/p Left thumb CMC interposit ional arthroplas ty with APL tendon transfer suspension (DOS: 06/14/22) Trigger th umb of left hand 4803609603 78546 M65.312 Left trigger thumb (CSI: 09/01/2022) Mass of larose bcutaneous tissue of left thumb 8062008331 5805187 R22.32 [id number] RAYNA TURNER MD ORTHOPEDI [address] [address] 01/19/2023 10:30:09 01/19/2023 11:48:33 Postoperative care 234712134 Z48.89 Previously s/p Left thumb CMC interposit ional arthroplas ty with APL tendon transfer suspension (DOS: 06/14/22) Osteoarthr osis of the carpometacarpal joint of the thumb 14661820 M18.11 M18.12 - Right severe Eaton stage III CMC joint arthritis (CSI: 11/16/2022; 06/14/22; 03/23/22) Previously s/p Left thumb CMC interposit ional arthroplas ty with APL tendon transfer suspension (DOS: 06/14/22) Trigger th umb of left hand 5446179423 64510 M65.312 Left trigger thumb (CSI: 09/01/2022) Mass of larose bcutaneous tissue of left thumb 8951060163 7211874 R22.32 MRI of the left thumb with and without contrast (01/05/2023 ) did not identify any definitive soft tissue mass in the left thumb. Moderate tendinosis of the APL tendon and findings consistent with previous CMC arthroplas ty noted. [id number] GOPAL HERNANDEZ MD [facility] [address] [place] [address] 11/19/2023 12:56:48 11/22/2023 04:45:32 Osteoarthritis of joint of hand 22207476 M19.049 Unfortunat huan she is still symptomati c. She is on Naproxen as needed. She can continue to use topical agents including voltaren gel. She should avoid NSAIDs due to having one kidney. Take Tylenol arthritis twice daily as needed. Paraffin wax pot at night, copper arthritis gloves during the day. Degenerati on of cervical intervertebral disc 92020606 M50.30 chronic and is post physical therapy with improvemen t. Does not have any radiculopa thy. Maintain core strengthen ing exercises. Will maintain PT as needed Pain of bi lateral hands 1042436827 4798621 M79.641 M79.642 Bilateral hand degenerati ve process [...] Recorded Advance Directives Directive None Recorded Payers Insurance Date Sequence Insurance Name Policy Number Policy Negrete Covered Member ID Negrete Member ID Guarantor Name 11/26/2023 1 [place] Estela Briones [id number] Estela Briones 11/19/2023 2 [employer] (MEDICARE SUPPLEMENT) Estela Briones [id number] Estela Briones 11/26/2023 1 [place] [id number] Estela Briones [id number] Estela Briones Notes Date Note Type Note [...] by:Primary Care Physician: Robert Silverman Hand dominance: RightLocation: Bilateral thumb Pain level: 3 10 Date of injury: 2Duration: 11 months Recent Surgery: YesProcedure: - Left thumb CMC interpositional arthroplasty with APL tendon transfer suspension- Right thumb carpometacarpal joint corticosteroid injectionDate of surgery:31-72-2348Phu geon(If Known): Rayna Turner In office procedure? No Previous upper extremity surgery? NoProcedure:Approxima te date of surgery:Surgeon (if known):Have you or an immediate family member ever seen our hand surgeons before? 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 Yes Is this injury associated with a Workers Compensation claim? No Patient arrived in: CMC brace - removed. Tube Tester Strength: right: left: Overall the return to [...] transfer suspension 5 months RAYNA TURNER MD [address] [place] [address], [address], [facility] 11/16/2022 17:13:17 11/20/2022 text/html ROS as noted in the HPI A 62-year-old female with migraine, hypertension, here for follow-up. Diagnosed [...] rarely maybe once a year. WANG ACKERMAN, JAVA APPLICATION ENGINEER [address] [place], [address], [facility] 11/20/2022 16:21:43 12/15/2022 text/html Since last visit, patient has developed a prominent mass along [...] by:Primary Care Physician: Robert Silverman Hand dominance: RightLocation: Bilateral thumb Pain level: 10 with use Date of injury: uration: 1 year Recent Surgery: YesProcedure: - Left thumb CMC interpositional arthroplasty with APL tendon transfer suspension- Right thumb carpometacarpal joint corticosteroid injectionDate of surgery:[id number] geon(If Known): Rayna Turner In office procedure? No Previous upper extremity surgery? NoHave you or an immediate family member ever seen our hand surgeons before? 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 No Patient arrived in: CMC brace - removed. Tube Tester Strength: right: left: Ms. Briones visits us in office today for a recheck. Corticosteroid injection from 11/16/22 did not provide any relief. Continues to feel moderate pain paired with N/T. Main concern is that her top knuckle feels like bone is coming through the skin with flexion (per pt description). RAYNA TURNER MD [address] [place], [address], [facility] 12/15/2022 10:32:20 01/19/2023 text/html Patient returns to [...] by:Primary Care Physician: Robert Silverman Hand dominance: RightLocation: Bilateral thumb Pain level: 2 /10 Date of injury: 2Duration: 1 year Recent Surgery: YesProcedure:- Left thumb CMC interpositional arthroplasty with APL tendon transfer suspension- Right thumb carpometacarpal joint corticosteroid injectionDate of surgery:48-25-0903Wzd geon(If Known): Rayna Turner In office procedure? No Previous upper extremity surgery? NoHave you or an immediate family member ever seen our hand surgeons before? 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 No Patient arrived in: CMC brace - removed. Tube Tester Strength: right: left: Ms. Briones visits us in office today for a recheck and to f/u on results of MRI from 01/05/23. Reports minimal pain in left thumb; more pain with overuse. Moderate n/t in left thumb/SF. Moderate stiffness and swelling. RAYNA TURNER MD [address] [place] [address], [address], [facility] 01/29/2023 14:54:45 11/19/2023 text/html ROS as noted in the HPI A 63-year-old female with seen today for a follow-up on [...] maybe once a year. GOPAL HERNANDEZ MD [facility] [place], [address], [facility] 11/21/2023 12:20:48 OBGyn Episode No OBEpisode recorded.
--- OUTSIDE RECORDS SUMMARY | 2025-05-20 14:40 | XMS_ITS | Data Portability ---
Author Organization [place] [facility] [place] & SANGEETA Manzano ADMIN Address [address] [place] [address] Assessment Encounter Date Assessment Date Assessment LastModified [...] symptoms worsen at all to seek care [email or web address] Not available 03/23/2024 14:32:13 01/14/2025 01/14/2025 discussed dx and treatment options with pt. discussed drainage and throat irritation. pt concerned about potential new infection. [facility] sent. follow up with results and adjust pharmacological treatment if necessary. discussed only cardiac dx of HBP and medications. keep ENT argelia. increase fluid intake. use ibuprofen and tylenol as needed for fever and pain. follow instructions on bottle. follow up if symptoms worsen or do not improve. [email or web address] Not available 01/14/2025 12:09:45 04/26/2025 04/26/2025 Diagnosis Back Pain Patient advised to take [...] follow up with worsening symptoms or concerns [email or web address] Not available 04/26/2025 13:03:53 Plan of Treatment Reminders Order Date Submit Date Provider Last Modified By Organization Details Last Modified Time Details Appointments None recorded. Lab streptococ cus group A DNA 2024 025 [email or web address] [facility], [address], [place], [address], Ph [phone] 5 12:05:19 SARS CoV 2 RNA (COVID-19) , QL, cannoneer-PCR, respirator y specimen 2024 025 [email or web address] [facility], [address] [facility] [address], [place], [address], Ph [phone] 5 12:05:23 influenza (A+B) RNA, qualitativ e, PCR 2024 025 [email or web address] [facility], [address] [facility] [address], [place], [address], Ph [phone] 5 12:05:24 infectious disease panel 2024 025 [facility], [address], [place], [address], 5 05:39:03 rapid SARS CoV 2 Ag, QL IA, respirator y specimen 2023 024 [email or web address] [facility], [address] [facility] [address], [place], [address], Ph [phone] 4 12:45:09 rapid flu (A+B) 2023 024 [facility], [address] [facility] [address], [place], [address], Ph [phone] 4 12:45:13 rapid strep group A, throat 2023 024 [email or web address] [facility], [address], [place], [address], Ph [phone] 4 12:45:18 Referral None recorded. Procedures None recorded. Surgeries None recorded. Imaging None recorded. Medication Orders prednisone 10 mg tablets in a dose pack 2024 025 [facility], [address], [address], 5 13:02:26 cyclobenza sindi 5 mg tablet 2024 025 [facility], [address], [address], 5 05:03:13 ketorolac 60 mg/2 mL intramuscu lar solution 2024 025 [email or web address] Not available 5 13:15:40 dexamethas one sodium phosphate 10 mg/mL injection solution 2024 025 [email or web address] Not available 5 13:17:43 Lidocaine Viscous 2 % mucosal solution 2024 025 [facility], [address], [address], 5 12:12:21 dextrometh orphan-gua ifenesin 30 mg-600 mg tablet extended [id number] hr 2024 025 [facility], [address], [address], 5 12:12:21 Augmentin 875 mg-125 mg tablet 2023 024 [facility], [address], [address], 4 12:49:54 prednisone 10 mg tablets in a dose pack 2023 024 [facility], [address], [address], 4 12:49:53 prednisone 10 mg tablets in a dose pack 2023 024 [facility], [address], [address], 4 14:29:44 cyclobenza sindi 5 mg tablet 2023 024 [facility], [address], [address], 5 05:03:13 Celestone Soluspan 6 mg/mL suspension for injection 2023 024 [email or web address] Not available 4 15:00:21 ketorolac 60 mg/2 mL intramuscu lar solution 2023 024 [email or web address] Not available 4 15:02:28 Patient TargetsNo targets recorded. Patient InstructionsNo instructions recorded. Reason for Referral None Reported. Results Created Date Observation Date Name Description Value Unit Range Abnormal Flag Note LastModifiedBy Organization Detail LastModifiedTime 07/06/20 24 07/06/2024 rapid strep group A, throa t Strep positi ve Not Available [facility] [address] [facility] [address], [place], [address], Ph [phone] 07/06/2024 11:52:28 07/06/20 24 07/06/2024 rapid flu (A+B) Flu B negati ve Not Available [facility] [address] [facility] [address], [place], [address], Ph [phone] 07/06/2024 11:52:20 07/06/20 24 07/06/2024 rapid flu (A+B) Flu A negati ve Not Available [facility] [address] [facility] [address], [place], [address], Ph [phone] 07/06/2024 11:52:20 07/06/20 24 07/06/2024 rapid SARS CoV 2 Ag, QL IA, respi rator y speci men rapid SARS CoV 2 Ag, QL IA, respiratory specimen negati ve Not Available [facility] [address] [facility] [address], [place], [address], Ph [phone] 07/06/2024 11:52:11 01/15/20 25 01/15/2025 PNEUM ONIA streptococcu s pyogenes (group A strep) 0 ppm 19.961 - 24.689 normal Not Detec clinton Not Available [facility] [address], [place], [address], 01/16/2025 05:39:03 01/15/20 25 01/15/2025 PNEUM ONIA streptococcu s pneumoniae 0 ppm 19.961 - 24.689 normal Not Detec clinton Not Available [facility] [address], [place], [address], 01/16/2025 05:39:03 01/15/20 25 01/15/2025 PNEUM ONIA streptococcu s agalactiae (group B strep) 0 ppm 19.961 - 24.689 normal Not Detec clinton Not Available [facility] [address], [place], [address], 01/16/2025 05:39:03 01/15/20 25 01/15/2025 PNEUM ONIA staphylococc us aureus 0 ppm 19.961 - 24.689 normal Not Detec clinton Not Available [facility] [address], [place], [address], 01/16/2025 05:39:03 01/15/20 25 01/15/2025 PNEUM ONIA serratia marcescens 0 ppm 19.961 - 24.689 normal Not Detec clinton Not Available [facility] [address], [place], [address], 01/16/2025 05:39:03 01/15/20 25 01/15/2025 PNEUM ONIA respiratory syncytial virus ([id number]_VI9999 0015_po) 0 ppm 23.000 - 31.722 normal Not Detec clinton Not Available [facility] [address], [place], [address], 01/16/2025 05:39:03 01/15/20 25 01/15/2025 PNEUM ONIA pseudomonas aeruginosa 0 ppm 19.961 - 24.689 normal Not Detec clinton Not Available [facility] [address], [place], [address], 01/16/2025 05:39:03 01/15/20 25 01/15/2025 PNEUM ONIA proteus mirabilis, vulgaris 0 ppm 19.961 - 24.689 normal Not Detec clinton Not Available [facility] [address], [place], [address], 01/16/2025 05:39:03 01/15/20 25 01/15/2025 PNEUM ONIA parainfluenz a virus (types 1, 2, 3, 4) 0 ppm 23.000 - 31.313 normal Not Detec clinton Not Available [facility] [address], [place], [address], 01/16/2025 05:39:03 01/15/20 25 01/15/2025 PNEUM ONIA mycoplasma pneumoniae 0 ppm 19.961 - 24.689 normal Not Detec clinton Not Available [facility] [address], [place], [address], 01/16/2025 05:39:03 01/15/20 25 01/15/2025 PNEUM ONIA moraxella catarrhalis 0 ppm 19.961 - 24.689 normal Not Detec clinton Not Available [facility] [address], [place], [address], 01/16/2025 05:39:03 01/15/20 25 01/15/2025 PNEUM ONIA legionella pneumophila 0 ppm 19.961 - 24.689 normal Not Detec clinton Not Available [facility] [address], [place], [address], 01/16/2025 05:39:03 01/15/20 25 01/15/2025 PNEUM ONIA klebsiella pneumoniae, oxytoca 0 ppm 19.961 - 24.689 normal Not Detec clinton Not Available [facility] [address], [place], [address], 01/16/2025 05:39:03 01/15/20 25 01/15/2025 PNEUM ONIA influenza virus B 0 ppm 23.000 - 30.081 normal Not Detec clinton Not Available [facility] [address], [place], [address], 01/16/2025 05:39:03 01/15/20 25 01/15/2025 PNEUM ONIA human metapneumovi steff 17.167 0 ppm 23.000 - 32.210 abnormal Detec clinton Not Available [facility] [address], [place], [address], 01/16/2025 05:39:03 01/15/20 25 01/15/2025 PNEUM ONIA haemophilus influenzae 0 ppm 19.961 - 24.689 normal Not Detec clinton Not Available [facility] [address], [place], [address], 01/16/2025 05:39:03 01/15/20 25 01/15/2025 PNEUM ONIA escherichia coli 0 ppm 19.961 - 24.689 normal Not Detec clinton Not Available [facility] [address], [place], [address], 01/16/2025 05:39:03 01/15/20 25 01/15/2025 PNEUM ONIA enterovirus D68 0 ppm 23.000 - 32.117 normal Not Detec clinton Not Available [facility] [address] [facility] [address], [place], [address], 01/16/2025 05:39:03 01/15/20 25 01/15/2025 PNEUM ONIA coronaviruse s (229E, nl63, hku1, oc43) (g_betacoron avirus_1_g_c oronavirus_h ku1) 0 ppm 23.000 - 31.416 normal Not Detec clinton Not Available [facility] [address] [place] [address] [address], [place], [address], 01/16/2025 05:39:03 01/15/20 25 01/15/2025 PNEUM ONIA chlamydia pneumoniae 0 ppm 19.961 - 24.689 normal Not Detec clinton Not Available [facility] [address] [place] [address] [address], [place], [address], 01/16/2025 05:39:03 01/15/20 25 01/15/2025 PNEUM ONIA bordetella pertussis, parapertussi s, bronchisepti ca 0 ppm 19.961 - 24.689 normal Not Detec clinton Not Available [facility] [address] [place] [address] [address], [place], [address], 01/16/2025 05:39:03 01/15/20 25 01/15/2025 PNEUM ONIA acinetobacte r baumannii 0 ppm 19.961 - 24.689 normal Not Detec clinton Not Available [facility] [address] [place] [address] [address], [place], [address], 01/16/2025 05:39:03 01/15/20 25 01/15/2025 PNEUM ONIA covid-19 coronavirus (sars-cov-2) 0 ppm 23.000 - 32.500 normal Not Detec clinton Not Available [facility] [address], [place], [address], 01/16/2025 05:39:03 01/15/20 25 01/15/2025 PNEUM ONIA rhinovirus/e nterovirus (RV_2of2_VI9 9990017_po) 0 ppm 23.000 - 32.985 normal Not Detec clinton Not Available [facility] [address], [place], [address], 01/16/2025 05:39:03 01/15/20 25 01/15/2025 PNEUM ONIA adenovirus (adv_1of2_VI 99990001_po) 0 ppm 23.000 - 31.943 normal Not Detec clinton Not Available [facility] [address], [place], [address], 01/16/2025 05:39:03 01/15/20 25 01/15/2025 PNEUM ONIA enterobacter aerogenes, cloacae 0 ppm 19.961 - 24.689 normal Not Detec clinton Not Available [facility] [address], [place], [address], 01/16/2025 05:39:03 01/15/20 25 01/14/2025 influ shaye (A+B) RNA, quali tativ e, PCR Flu A negati ve Not Available [facility] [address] [facility] [address], [place], [address], Ph [phone] 01/14/2025 11:59:45 01/15/20 25 01/14/2025 influ shaye (A+B) RNA, quali tativ e, PCR Flu B negati ve Not Available [facility] [address] [facility] [address], [place], [address], Ph [phone] 01/14/2025 11:59:45 01/15/20 25 01/14/2025 SARS CoV 2 RNA (COVI D-19) , QL, cannoneer-P CR, respi rator y speci men COVID-19 negati ve Not Available [facility] [address] [facility] [address], [place], [address], Ph [phone] 01/14/2025 11:59:02 01/15/20 25 01/14/2025 strep tococ cus group A DNA Strep negati ve Not Available [facility] [address] [facility] [address], [place], [address], Ph [phone] 01/14/2025 11:58:20 Result Notes None recorded. Medical Equipment None Reported. Allergies Allergen ID Allergen Name Allergen Category Reaction Reaction Severity Criticality Documentation Date Start Date Code Code System Note Provider Name and Address Organization Details Recorded Time 174987 Levaquin medicatio n Not available Not available Not available 03/23/2024 12373 2 RxNorm Faith DorseyMICAELA watson [facility] & [place] 4 14:21:33 707972 Substance with sulfonami de structure and antibacte rial mechanism of action (substanc e) medicatio n Not available Not available Not available 03/23/2024 58859 8003 SNOMED FaithMICAELA Carpenter [facility] & [place] 4 14:21:47 Medications Name Sig Start Date Stop Date Status Note LastModified by Organization Details LastModified Time atorvastati n 40 mg tablet TAKE 1 TABLET BY MOUTH AT BEDTIME NIGHTLY active Not Available Not Available No t Available atorvastati n 10 mg tablet active Not Available Not Available Not Available Lidocaine Viscous 2 % mucosal solution Take 10 mL every 6 hours by oral route as needed for 3 days. 2024 active Not Available Not Available Not Avai lable Celestone Soluspan 6 mg/mL suspension for injection Take 9 mg by injection route. 2023 active Not Available Not Available Not Avai lable meloxicam 15 mg tablet TAKE 1 TABLET BY MOUTH ONCE DAILY 04/26 completed Not Available Not Available Not Available hydrocodone 10 mg-acetamin ophen 325 mg tablet TAKE 1 TABLET BY MOUTH EVERY 6 HOURS NEEDED FOR ACUTE PAIN FOR 3 DAYS active Not Available Not Available No [...] OR VERTIGO active Not Available Not Available No t Available diazepam 2 mg tablet TAKE 1 TABLET BY MOUTH TWICE DAILY NEEDED FOR VERTIGO FOR 5 DAYS active Not Available Not Available No t Available rizatriptan 10 mg disintegrat ing tablet TAKE ONE TABLET BY MOUTH AT ONSET OF MIGRAINE. MAX DAILY DOSE 1 TABLET/DA Y. active Not Available Not Available No t [...] propranolol ER 80 mg capsule,24 hr,extended release TAKE 1 CAPSULE BY MOUTH ONCE DAILY FOR 90 DAYS active Not Available Not Available No t Available hydrochloro thiazide 12.5 mg capsule active Not Available Not Available Not Available docusate sodium 100 mg capsule TAKE 1 CAPSULE BY MOUTH TWICE A DAY NEEDED FOR CONSTIPAT ION active Not Available Not Available No t Available lisinopril 5 mg tablet TAKE 1 TABLET BY MOUTH ONCE DAILY active Not Available Not Available No t Available hydrochloro thiazide 25 mg tablet TAKE 1 TABLET BY MOUTH ONCE DAILY active Not Available Not Available No t Available azelastine 137 mcg (0.1 %) nasal spray USE 2 SPRAY(S) IN EACH NOSTRIL TWICE DAILY active Not Available Not Available No t Available dextrometho mitchel-rea enesin 30 mg-600 mg tablet extended phaysne92 hr Take 1 tablet every 12 hours by oral route as needed for 5 days. 2024 active Not Available Not Available Not Avai lable ketorolac 60 mg/2 mL intramuscul ar solution Inject 60 mg by intramusc ular route. 2024 active Not Available Not Available Not Avai lable ondansetron 4 mg disintegrat ing tablet TAKE 1 TABLET BY MOUTH EVERY 6 HOURS NEEDED FOR NAUSEA active Not Available Not Available No t Available dexamethaso ne sodium phosphate 10 mg/mL injection solution Take 10 mg by injection route. 2024 active Not Available Not Available Not Avai lable amoxicillin 875 mg-juan miguel larry clavulanate 125 mg tablet TAKE 1 TABLET BY MOUTH EVERY 12 HOURS FOR 10 DAYS active Not Available Not Available No t Available cyclobenzap rine 5 mg tablet Take 1 tablet 3 times a day by oral route as needed for 4 days. 05/07 completed Not Available Not Available Not Available duloxetine 20 mg capsule,del ayed release active Not Available Not Available Not Available levocetiriz ine 5 mg tablet TAKE 1 TABLET BY MOUTH ONCE DAILY active Not Available Not Available No t Available Vitals Date Recorded Body height Body mass index (BMI) Body weight Body temperature Provider Name and Address Organization Details Last Updated DateTime 01/14/2025 157.48 cm 31.3 kg/m2 31810.3 g 97.3 [degF] Klarissa Cosmener [facility] & [place] 01/14/2025 11:14:13 Date Recorded Body weight Oxygen saturation Oxygen saturation in Arterial blood by Pulse oximetry Body temperature Heart rate Heart rate Systolic And Diastolic Provider Name and Address Organization Details Last Updated DateTime 4 17712.7 8 g 95 % 95 % 98.1 [degF] 72 /min 72 /min 150/83 mm[Hg] Faith Cannon [facility] & [place] 4 14:20:03 Date Recorded Body height Body mass index (BMI) Body weight Oxygen saturation Oxygen saturation in Arterial blood by Pulse oximetry Heart rate Systolic And Diastolic Provider Name and Address Organization Details Last Updated DateTime 5 157.48 cm 31.5 kg/m2 57166.6 1 g 98 % 98 % 88 /min 136/80 mm[Hg] Celia Mcfadden [facility] & [place] 5 12:54:40 Date Recorded Body weight Body mass index (BMI) Body height Body temperature Oxygen saturation Oxygen saturation in Arterial blood by Pulse oximetry Heart rate Systolic And Diastolic Provider Name and Address Organization Details Last Updated DateTime 4 90584.3 6 g 32 kg/m2 157.48 cm 98.8 [degF] 98 % 98 % 71 /min 155/70 mm[Hg] Yudith Marie [facility] & [place] 4 11:57:12 Social History None recorded. Functional Status None recorded. Mental Status None recorded. Family History Nothing Reported. Medical History No medical history recorded. Gynecological HistoryNo gynecological history recorded. Obstetrics History GPAL:G 0 P 0 0 0 0 Immunizations Vaccine Type Date Status Note Provider Nam e and Address Organization Details Recorded Time Influenza, split virus, trivalent, PF 05/05/2016 completed Not Available [facility] 2024 12:44:25 Tdap 02/12/2019 completed Not Available [facility] 04/26/2025 12:44:25 Influenza, split virus, quadrivalent, PF 07/02/2019 completed Not Available [facility] 12:44:25 COVID-19, mRNA, LNP-S, PF, 100 mcg/0.5mL dose or 50 mcg/0.25mL dose 11/12/2020 completed Not Available [facility] 12:44:25 COVID-19, mRNA, LNP-S, PF, 100 mcg/0.5mL dose or 50 mcg/0.25mL dose 12/10/2020 completed Not Available [facility] 5 12:44:25 COVID-19, mRNA, LNP-S, PF, 100 mcg/0.5mL dose or 50 mcg/0.25mL dose 06/17/2021 completed Not Available [facility] 5 12:44:25 COVID-19, mRNA, LNP-S, PF, 30 mcg/0.3 mL dose, gina-sucrose 01/11/2022 completed Not Available [facility] 025 12:44:25 Past Encounters Encounter ID Performer Location Encounter Start Date Encounter Closed Date Diagnosis/Indication Diagnosis SNOMED-CT Code Diagnosis ICD10 Code Diagnosis IMO Codes Diagnosis Note [id number] [facility] [address] [facility] [address] [place] [address] 03/23/2024 13:59:18 03/23/2024 14:42:25 Low back pain 699663448 M54.50 [id number] MD JAVI [facility] [address] [facility] [address] [place] [address] 07/06/2024 10:26:18 07/06/2024 12:51:48 Sore throat 047596105 J02.9 Streptococ lawson sore throat 06811433 J02.0 Change toothbrush in 2-3 days [id number] Berto Haywood MD [facility] [address] [facility] [address] [place] [address] 01/14/2025 10:54:41 01/14/2025 12:04:04 Sore throat 159350541 J02.9 79625 [id number] Berto Haywood MD [facility] [address] [facility] [address] [place] [address] 04/26/2025 12:42:30 04/26/2025 13:13:42 Acute back pain with sciatica 870231556 M54.42 M54.41 [id number] Health Concerns Section Related Observation LastModified by Organization Detai ls LastModified Time None Recorded Concern Status LastModified by Organization Details LastModified Time None Recorded Advance Directives Directive None Recorded Payers Insurance Date Sequence Insurance Name Policy Number Policy Negrete Covered Member ID Negrete Member ID Guarantor Name 03/23/2024 [facility] [id number] M Estela Briones [id number] Estela Briones 04/26/2025 2 [employer] (MEDICARE SUPPLEMENT) Estela Briones [id number] Estela Briones 04/26/2025 1 [employer] ([place] Estela Doegan [id number] Estela Briones Notes Date Note Type Note Provider Name and Address Organization Details Recorded Time 4 text/htm l Back PainReported by PatientHPIFor location, patient reportsradiation to buttocks leftbut reportslumbar left. For severity, patient reportsworseningandpain level 6/10. For quality, patient reportsstiffnessandburning. For duration, patient reports5 days. For timing, patient reportsacute. For alleviating factors, patient reportsnone. For aggravating factors, patient reportstwisting,flexing back,pushing,pulling, andreaching. For associated symptoms, patient reportsno fever,no weakness,no numbness,no tingling,no shortness of breath,no unintentional weight loss,no chills,no night sweats,no gait instability,no recent increase in stress,no bowel dysfunction, andno bladder dysfunction. For previous injury, patient reportsno prior back injuryandno prior malignancy. For prior imaging, patient reportsnone. For context, (unknown patient states that she has chronic back pain with flare ups).ROS as noted in the HPI Ros Haywood APRN [address] , [place], [address], [facility] & [place] 03/23/2024 14:32:55 4 text/htm l ROS as noted in the HPI 2-3 weeks of cold symptoms. Worsening. Sore throat, cough, congestion, no fever, feeling poorly. Fatigue. Berto Haywood MD [address], [place], [address], [facility] & [place] 07/06/2024 12:50:16 5 text/htm l Sore ThroatReported by PatientHPIFor quality, patient reportssharpandpressure. For severity, patient reportsmoderate. For associated symptoms, patient reportsfever,cough,swollen glands,nausea,appetite loss,headache, andlethargybut reportsno dysphagia,no vomiting,no itching throat,no choking,no globus sensation,no rash,no abdominal pain,no conjunctivitis,no drooling,no stridor,no dyspnea,no stiff neck, andno muffled voice(nasal congestion, sore throat, chills, sweating, body aches.). For location, patient reportsleft side. For onset/timing, patient reportsgradual. For context, patient reportsno recent travel,no tick/insect bites,no new medications,no one else with similar symptoms, andno known allergies. For duration, (symptoms began approx 8 days ago.). For alleviating factors, (none). For aggravating factors, (none).pt states she was treated at another urgent care approx 7 days ago for a parotid stone and infection with augmentin. pt states swelling has decreased however other symptoms remained and new symptoms like body aches, headaches, and increasing cough and sorethroat developed. pt is on day 7 of 10 of augmentin treatment currently. 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 pt has upcoming ENT argelia on the .ROS as noted in the HPI MAURICE RENE NP [address], [place], [address], [facility] & [place] 01/14/2025 12:12:43 5 text/htm l Back PainReported by PatientHPIFor location, patient reportsradiation to buttocks bilateralbut reportslumbar bilateral. For severity, patient reportsworseningandpain level 02/22. For quality, patient reportsstiffness,tender, andburning. For duration, patient reports5 days. For timing, patient reportsacuteandintermittent . For alleviating factors, patient reportsrest. For aggravating factors, patient reportsambulation,twisting, flexing back,pushing,pulling,strain ing, andstanding. For associated symptoms, patient reportsno fever,no weakness,no numbness,no tingling,no shortness of breath,no unintentional weight loss,no chills,no night sweats,no gait instability,no recent increase in stress,no bowel dysfunction, andno bladder dysfunction. For previous injury, patient reportsno prior back injuryandno prior malignancy. For prior imaging, patient reportsnone. For context, (unknown).Have had back pain for a while. Bone spurs in both hips. PCP gives injections every 2 mos into the hip joints, appt on 05-06-25ROS as noted in the HPI Ros Haywood APRN [address], [place], [address], [facility] & [place] 04/26/2025 13:18:42 OBGyn Episode No OBEpisode recorded.
--- OUTSIDE RECORDS SUMMARY | 2025-05-20 14:40 | XMS_ITS | Continuity of Care Document ---
Author Organization [place] [facility] Address [address] [place] [address] Assessment Encounter Date Assessment Date Assessment LastModified by Organization Details LastModified Time 04/26/2025 04/26/2025 Diagnosis Back Pain Patient advised [...] follow up with worsening symptoms or concerns [email or web address] Not available 04/26/2025 13:03:53 Plan of Treatment Reminders Order Date Submit Date Provider Last Modified By Organization Details Last Modified Time Details Appointments None recorded. Lab None recorded. Referral None recorded. Procedures None recorded. Surgeries None recorded. Imaging None recorded. Medication Orders prednisone 10 mg tablets in a dose pack 2024 025 [facility] [place], [address], 13:02:26 cyclobenzap rine 5 mg tablet 2024 025 [facility] [place], [address], 5 05:03:13 ketorolac 60 mg/2 mL intramuscul ar solution 2024 025 [email or web address] Not available 5 13:15:40 dexamethaso ne sodium phosphate 10 mg/mL injection solution 2024 025 [email or web address] Not available 13:17:43 Patient TargetsNo targets recorded. Patient InstructionsNo instructions recorded. Reason for Referral None Reported. Medical Equipment None Reported. Allergies Allergen ID Allergen Name Allergen Category Reaction Reaction Severity Criticality Documentation Date Start Date Code Code System Note Provider Name and Address Organization Details Recorded Time 446618 Levaquin medicatio n Not available Not available Not available 03/23/2024 14142 2 RxNorm Faith Cannon marvin MICAELA Ej [facility] [place] 4 14:21:33 [id number] Substance with sulfonami de structure and antibacte rial mechanism of action (substanc e) medicatio n Not available Not available Not available 03/23/2024 [id number] SNOMED Faith Cannon marvin MICAELA Ej [facility] [place] 4 14:21:47 Medications Name Sig Start Date [...] Available Not Available No t Available dextrometho rphan-guaif enesin 30 mg-600 mg tablet extended [id number] hr Take 1 tablet every 12 hours [...] Not Available Not Avai lable amoxicillin 875 mg-potassiu m clavulanate 125 mg tablet TAKE 1 TABLET [...] and Address Organization Details Last Updated DateTime 157.48 cm 31.5 kg/m2 22588.6 1 g 98 % 98 % 88 /min 136/80 mm[Hg] Celia Mcfadden [facility] & [place] 12:54:40 Social History None recorded. Functional Status None recorded. Mental Status None recorded. Family History Nothing Reported. Medical History No medical history recorded. Gynecological HistoryNo gynecological history recorded. Obstetrics History GPAL:G 0 P 0 0 0 0 Immunizations Vaccine Type Date Status Note Provider Nam e and Address Organization Details Recorded Time Influenza, split virus, trivalent, PF 05/05/2016 completed Not Available [facility] 2024 12:44:25 Tdap 02/12/2019 completed Not Available [facility] 04/26/2025 12:44:25 Influenza, split virus, quadrivalent, PF 07/02/2019 completed Not Available [facility] 12:44:25 COVID-19, mRNA, LNP-S, PF, 100 mcg/0.5mL dose or 50 mcg/0.25mL dose 11/12/2020 completed Not Available [facility] 12:44:25 COVID-19, mRNA, LNP-S, PF, 100 mcg/0.5mL dose or 50 mcg/0.25mL dose 12/10/2020 completed Not Available [facility] 12:44:25 COVID-19, mRNA, LNP-S, PF, 100 mcg/0.5mL dose or 50 mcg/0.25mL dose 06/17/2021 completed Not Available [facility] 12:44:25 COVID-19, mRNA, LNP-S, PF, 30 mcg/0.3 mL dose, gina-sucrose 01/11/2022 completed Not Available [facility] 025 12:44:25 Past Encounters Encounter ID Performer Location Encounter Start Date Encounter Closed Date Diagnosis/Indication Diagnosis SNOMED-CT Code Diagnosis ICD10 Code Diagnosis IMO Codes Diagnosis Note [id number] Berto Haywood MD [facility] [address] [place] [address] 04/26/2025 12:42:30 04/26/2025 13:13:42 Acute back pain with sciatica 838608706 M54.42 M54.41 [id number] Health Concerns Section Related Observation LastModified by Organization Detai ls LastModified Time None Recorded Concern Status LastModified by Organization Details LastModified Time None Recorded Payers Encounter Date Sequence Insurance Name Policy Number Policy Negrete Covered Member ID Negrete Member ID Guarantor Name 04/26/2025 2 [email or web address] (MEDICARE SUPPLEMENT) Estela Zbigniew Anselmo [id number] Estela Zbigniew Anselmo 04/26/2025 1 [place] Estela D Anselmo [id number] Estela Zbigniew Anselmo Notes Date Note Type Note Provider Name and Address Organization Details Recorded Time 5 text/htm l Back PainReported by PatientHPIFor location, patient reportsradiation to buttocks bilateralbut reportslumbar bilateral. For severity, patient reportsworseningandpain level 8/10. For quality, patient reportsstiffness,tender, andburning. For duration, [...] mos into the hip joints, appt on 05-06-25 as noted in the HPI Ros Haywood, REJI [address], [place], [address], [facility] [place] & [place] 04/26/2025 13:18:42 OBGyn Episode No OBEpisode recorded.
--- NOTE | 2025-05-20 14:45 | MM_ITS ---
PROCEDURE INFORMATION: Exam: MG Bilateral Screening 3D Mammography Exam date and time: 05/20/2025 2:45 PM Age: 65 years old Clinical indication: Screening examination TECHNIQUE: Imaging protocol: Bilateral Screening tomosynthesis and 2D mammography including computer-aided detection (CAD) when performed. COMPARISON: 1. MG MM DIG SCREENING MAMM BI W/CAD 10/25/2023 3:29 PM 2. MG MM DIG SCREENING MAMM BI W/CAD 10/09/2022 3:21 PM FINDINGS: MAMMOGRAPHY: Breast composition: The breasts are heterogeneously dense, which may obscure small masses. Mass: None. Architectural distortion: None. Calcifications: No suspicious calcifications. Asymmetric density: None. Skin thickening: None. Axillary adenopathy: None. IMPRESSION: No mammographic evidence of malignancy. Annual screening is recommended unless otherwise clinically indicated. ASSESSMENT: BI-RADS Category 1: Negative.
== END 2025-05-20 23:59 | disposition home or self-care (01) ==
LOC: RAD 14:38
PROVIDERS: PCP Family Medicine; Visit Provider Nurse Practitioner Family
DX: Z12.31 Encounter for screening mammogram for malignant neoplasm of breast (principal); R92.333 Mammographic heterogeneous density, bilateral breasts
CPT/HCPCS: 77063; 77067